=== PATIENT | female | born 1960 | race Caucasian/White ===

== ENCOUNTER 2020-01-08 10:54 | Outpatient (REF) | payer OTHER, SELFPAY ==
--- NOTE | 2020-01-08 11:00 | XR_ITS ---
EXAMINATION: XR HAND, RIGHT XR FINGER, RIGHT CLINICAL INFORMATION: S69.91XA - Unspecified injury of right wrist, hand and finger. Pain hand and thumb. COMPARISON: None TECHNIQUE: The right hand is imaged in 3 views. The right forearm is imaged in 2 views. There are a total of 5 views. FINDINGS: There is no acute or healing fracture, dislocation, destructive process. The ulnar variance is neutral. The carpus shows no joint narrowing or erosive change or chondrocalcinosis. There is some mild spurring base distal phalanx. No joint narrowing or erosive change. The MCP and interphalangeal joints are unremarkable. No erosive changes. XR/XR finger RT min 2V IMPRESSION: No fracture or arthropathy. Small spur base thumb distal phalanx.
--- NOTE | 2020-01-08 11:00 | XR_ITS ---
EXAMINATION: XR HAND, RIGHT XR FINGER, RIGHT CLINICAL INFORMATION: S69.91XA - Unspecified injury of right wrist, hand and finger. Pain hand and thumb. COMPARISON: None TECHNIQUE: The right hand is imaged in 3 views. The right forearm is imaged in 2 views. There are a total of 5 views. FINDINGS: There is no acute or healing fracture, dislocation, destructive process. The ulnar variance is neutral. The carpus shows no joint narrowing or erosive change or chondrocalcinosis. There is some mild spurring base distal phalanx. No joint narrowing or erosive change. The MCP and interphalangeal joints are unremarkable. No erosive changes. XR/XR hand RT 2V IMPRESSION: No fracture or arthropathy. Small spur base thumb distal phalanx.
== END 2020-01-08 10:55 | disposition home or self-care (01) ==
LOC: HO.HMGCX 10:54
PROVIDERS: PCP Internal Medicine; Visit Provider Nurse Practitioner Family
DX: S69.91XA Unspecified injury of right wrist, hand and finger(s), initial encounter (principal); M79.644 Pain in right finger(s)
CPT/HCPCS: 73120; 73140

== ENCOUNTER 2020-02-02 10:43 | Outpatient (REF) | payer OTHER, SELFPAY | END 2020-02-02 10:44 | disposition home or self-care (01) | LOC: HO.LAB 10:43 | PROVIDERS: Visit Provider Hospitalist | DX: Z20.828 Contact with and (suspected) exposure to other viral communicable diseases (principal); B34.9 Viral infection, unspecified | CPT/HCPCS: U0003 ==

== ENCOUNTER 2020-02-13 12:35 | Outpatient (REF) | payer OTHER, SELFPAY | END 2020-02-13 12:36 | disposition home or self-care (01) | LOC: HO.HMGCLDS 12:35 | PROVIDERS: PCP Internal Medicine; Visit Provider Internal Medicine | DX: E78.5 Hyperlipidemia, unspecified (principal); G43.909 Migraine, unspecified, not intractable, without status migrainosus; I10 Essential (primary) hypertension; R73.9 Hyperglycemia, unspecified; Z20.828 Contact with and (suspected) exposure to other viral communicable diseases | CPT/HCPCS: U0003 ==

== ENCOUNTER 2020-03-29 14:46 | Outpatient (REF) | payer OTHER, SELFPAY | END 2020-03-29 14:47 | disposition home or self-care (01) | LOC: HO.HMGCLDS 14:46 | PROVIDERS: PCP Internal Medicine; Visit Provider Internal Medicine | DX: Z20.822 Contact with and (suspected) exposure to COVID-19 (principal) | CPT/HCPCS: 36415; C9803; U0003 ==

== ENCOUNTER 2020-05-18 | Outpatient (REF) | payer OTHER, SELFPAY | END 2020-05-18 00:01 | disposition home or self-care (01) | LOC: HO.LNP | PROVIDERS: Visit Provider Hospitalist | DX: J01.90 Acute sinusitis, unspecified (principal); Z20.822 Contact with and (suspected) exposure to COVID-19 | CPT/HCPCS: U0003; U0005 ==

== ENCOUNTER 2020-07-30 12:18 | Outpatient (REF) | payer OTHER, SELFPAY ==
--- NOTE | ~2020-07-30 | US_ITS ---
EXAMINATION: US RETROPERITONEAL LIMITED (RENAL ONLY) CLINICAL INFORMATION: Nephrolithiasis. COMPARISON: Abdominal ultrasound 10/26/2017. KUB 12/19/2017 and 12/05/2017. TECHNIQUE: Real-time imaging of the kidneys. FINDINGS: RIGHT KIDNEY: 11.8 x 5.3 x 5.2 cm (SAG x AP x TRV). The kidney is normal in size, contour, and echogenicity. Renal cortical thickness is normal. No calculi or focal parenchymal lesions. No hydronephrosis. LEFT KIDNEY: 11.4 x 5.0 x 5.4 cm (SAG x AP x TRV). The kidney is normal in size, contour, and echogenicity. Renal cortical thickness is normal. No calculi or focal parenchymal lesions. No hydronephrosis. US/US renal BI IMPRESSION: Unremarkable examination.
[2020-07-30 14:06] LABS: MANUAL DIFF FLAG NO
[2020-07-30 14:09] LABS: Glucose Urine UA NEG (NEG); Leukocyte Esterase Urine TRACE (NEG); Nitrite Urine NEG (NEG); Specific Gravity - Urine 1.015 (1.005-1.025); Urine Blood NEG (NEG); Urine Ketones NEG (NEG); Urine Protein NEG (NEG-TRACE)
[2020-07-30 14:15] LABS: Appearance Urine CLEAR; Color Urine YELLOW
[2020-07-30 14:19] LABS: Basophils Percent Auto 0.6 % (0-2); Eosinophils Absolute Auto 0.2 X10*3/uL (0.0-0.4); Eosinophils Percent Auto 3.4 % (0-4); Hematocrit 37.4 % (37-47); Hemoglobin 12.4 g/dl (12.0-16.0); Imm Gran Abs Auto 0.03 X10*3/uL (0.00-0.03); Imm Gran Pct Auto 0.5 % (0.0-0.4); Lymphocytes Absolute Auto 2.2 X10*3/uL (1.2-4.9); Lymphocytes Percent Auto 35.8 % (20-40); Mean Corpuscular HGB Conc 33.2 g/dl (31.0-35.0); Mean Corpuscular Hemoglobin 27.9 pg (27.0-33.0); Mean Corpuscular Volume 84.2 fL (80-98); Mean Platelet Volume 10.3 fL (9.4-12.3); Monocytes Absolute Auto 0.5 X10*3/uL (0.1-1.2); Monocytes Percent Auto 7.7 % (2-11); Neutrophils Absolute Auto 3.3 X10*3/uL (2.0-8.3); Platelet Count 244 X10*3/uL (160-400); Red Blood Count 4.44 X10*6/uL (4.20-5.50); Red Cell Distribution Width 14.6 % (11.0-16.0); White Blood Count 6.3 X10*3/uL (4.8-10.8)
[2020-07-30 14:24] LABS: RBC Urine 0 /HPF (0); Squamous Epithelial Cell Urine 2+ /LPF
[2020-07-30 14:34] LABS: Estimated Average Glucose 103 mg/dL; Hemoglobin A1c % 5.2 %
[2020-07-30 14:35] LABS: Alanine Aminotransferase 40 U/L (0-31); Alkaline Phosphatase 87 U/L (39-117); Anion Gap 12 (12-20); Aspartate Amino Transferase 27 U/L (5-31); Bilirubin Total 0.6 mg/dL (0.0-1.0); Blood Urea Nitrogen 15 mg/dL (9-16); Calcium 9.2 mg/dL (8.4-10.2); Carbon Dioxide 26 mmol/L (22-29); Chloride 109 mmol/L (96-108); Cholesterol 171 mg/dL; Estimated Glomerular Filt Rate > 60; Glucose Fasting 105 mg/dL (60-99); HDL Cholesterol 55 mg/dL; LDL Cholesterol Calculated 95 mg/dl; Potassium 4.3 mmol/L (3.3-5.1); Sodium 143 mmol/L (135-145); Total Protein 6.6 g/dL (6.5-8.0); Triglycerides 105 mg/dL
[2020-07-30 14:59] LABS: TSH reflex Free T4 < 0.01 uIU/mL (0.32-4.0)
[2020-07-30 15:32] LABS: Free T4 (Free Thyroxine) 0.89 ng/dL (0.71-1.85)
== END 2020-07-30 12:19 | disposition home or self-care (01) ==
LOC: HO.HMGCX 12:18
PROVIDERS: PCP Internal Medicine; Visit Provider Urology
DX: N20.0 Calculus of kidney (principal); E78.5 Hyperlipidemia, unspecified; R73.9 Hyperglycemia, unspecified; I10 Essential (primary) hypertension
CPT/HCPCS: 36415; 76775; 80053; 80061; 81001; 83036; 84439; 84443; 85025

== ENCOUNTER → 2020-08-06 08:20 | Outpatient (BNVA) | payer OTHER, SELFPAY | PROVIDERS: Visit Provider Urology | DX: N20.0 Calculus of kidney (principal) | CPT/HCPCS: 99212 ==

== ENCOUNTER 2020-10-08 13:49 | Outpatient (REF) | payer OTHER, SELFPAY ==
--- NOTE | ~2020-10-08 | MM_ITS ---
EXAMINATION: BONE DENSITOMETRY CLINICAL INDICATION: Osteopenia. COMPARISON: None (current study represents initial baseline exam). TECHNIQUE: Using a [employer] DXA System (software version: 13.1) manufactured by [employer] dual-energy x-ray absorptiometry was performed of the lumbar spine and left hip. The images are of good technical quality. Summary results are attached. FINDINGS: AP SPINE L1-L4: BMD 0.901 g/cm2, Z-score -1.9, T-score -2.3, osteopenia. LEFT FEMUR, NECK: BMD 0.771 g/cm2, Z-score -1.2, T-score -1.9, osteopenia. LEFT FEMUR, TOTAL: BMD 0.821 g/cm2, Z-score -1.1, T-score -1.5, osteopenia. IDENTIFIED RISK FACTORS: Early menopause, height loss, hysterectomy, secondary osteoporosis. HISTORY OF FRACTURE: None listed. MEDICATIONS: Vitamin D. MM/XR DEXA axial skeleton IMPRESSION: 1. DIAGNOSIS: Osteopenia based on the lowest T-score value of -2.3 in the lumbar spine applying World Health Organization criteria. 2. 10-YEAR FRACTURE RISK PREDICTION, FRAX: Major osteoporotic fracture (clinical spine, forearm, hip or shoulder) 4.9%. Hip fracture 0.6%. 3. Treatment Recommendations: NOF guidelines recommend consideration for treatment in postmenopausal women and men age 50 and older presenting with the following: -A hip or vertebral (clinical or morphometric) fracture. -T-score less than or equal to -2.5 at the femoral neck or spine after appropriate evaluation to exclude secondary causes. -Low bone mass at the hip or spine and a 10-year fracture probability by FRAX of greater than or equal to 3% for hip fracture or greater than or equal to 20% for major osteoporotic fracture based on the [place] adapted WHO algorithm. 4. Other Recommendations: All treatment decisions require clinical judgment and consideration of individual patient factors, including patient preferences, comorbidities, previous drug use, risk factors not captured in the FRAX model (e.g. frailty, falls, vitamin D deficiency, increased bone turnover, interval significant decline in bone density) and possible under or overestimation of fracture risk by FRAX. Additional medical evaluation for secondary cause of low bone mineral density may be appropriate. FUTURE SCAN RECOMMENDATION: People with diagnosed cases of osteoporosis or at high risk for fracture should have regular bone mineral density tests. For patients eligible for Medicare, routine testing is allowed once every 2 years. The testing frequency can be increased to one year for patients who have rapidly progressing disease, those who are receiving or discontinuing medical therapy to restore bone mass, or have additional risk factors.
== END 2020-10-08 13:50 | disposition home or self-care (01) ==
LOC: HO.MAMMO 13:49
PROVIDERS: Visit Provider Internal Medicine
DX: Z13.820 Encounter for screening for osteoporosis (principal); M85.80 Other specified disorders of bone density and structure, unspecified site; Z78.0 Asymptomatic menopausal state; Z98.890 Other specified postprocedural states; Z90.722 Acquired absence of ovaries, bilateral; Z79.899 Other long term (current) drug therapy
CPT/HCPCS: 77080

== ENCOUNTER 2021-06-22 14:26 | Outpatient (REF) | payer OTHER, SELFPAY ==
[2021-06-22 14:54] LABS: Binax Internal Control QC Valid; Binax Now Covid-19 Ag Negative (Negative)
[2021-06-22 17:43] LABS: Influenza A PCR POSITIVE (Negative); Influenza B PCR NEGATIVE (Negative); Resp Syncy Virus RNA Qual PCR NEGATIVE (Negative); SARS COV2 PCR INHOUSE NEGATIVE (Negative)
== END 2021-06-22 14:27 | disposition home or self-care (01) ==
LOC: HO.HMGCLDS 14:26
PROVIDERS: PCP Internal Medicine; Visit Provider Nurse Practitioner Family
DX: Z20.822 Contact with and (suspected) exposure to COVID-19 (principal); R05.9 Cough, unspecified; R68.83 Chills (without fever); J32.1 Chronic frontal sinusitis
CPT/HCPCS: 0241U

== ENCOUNTER 2021-07-21 08:30 | Outpatient (REF) | payer OTHER, SELFPAY ==
--- NOTE | ~2021-07-21 | US_ITS ---
EXAMINATION: US RETROPERITONEAL LIMITED (RENAL ONLY) CLINICAL INFORMATION: Calculus of kidney. COMPARISON: Renal ultrasound 07/30/2020. TECHNIQUE: Real-time imaging of the kidneys. FINDINGS: RIGHT KIDNEY: 12.0 x 5.2 x 6.8 cm (SAG x AP x TRV). The kidney is normal in size, contour, and echogenicity. Renal cortical thickness is normal. No calculi or focal parenchymal lesions. No hydronephrosis. LEFT KIDNEY: 12.3 x 6.2 x 5.4 cm (SAG x AP x TRV). The kidney is normal in size, contour, and echogenicity. Renal cortical thickness is normal. No focal parenchymal lesions or hydronephrosis. 4 mm nonobstructing left midpole renal stone new from prior. US/US renal BI IMPRESSION: New 4 mm nonobstructing left midpole renal stone.
== END 2021-07-21 08:31 | disposition home or self-care (01) ==
LOC: HO.HMGCX 08:30
PROVIDERS: Visit Provider Urology
DX: N20.0 Calculus of kidney (principal)
CPT/HCPCS: 76775

== ENCOUNTER → 2021-08-04 08:55 | Outpatient (BNVA) | payer OTHER, SELFPAY | PROVIDERS: PCP Internal Medicine; Visit Provider Urology | DX: N20.0 Calculus of kidney (principal) | CPT/HCPCS: 99212 ==

== ENCOUNTER 2021-09-14 12:37 | Outpatient (REF) | payer OTHER, SELFPAY ==
[2021-09-14 14:00] LABS: Hemoglobin 11.2 g/dl (12.0-16.0); Mean Corpuscular HGB Conc 32.9 g/dl (31.0-35.0); Mean Corpuscular Hemoglobin 25.4 pg (27.0-33.0); Mean Corpuscular Volume 77.1 fL (80.0-98.0); Mean Platelet Volume 10.3 fL (9.4-12.3); Platelet Count 247 X10*3/uL (160-400); Red Blood Count 4.41 X10*6/uL (4.20-5.50); Red Cell Distribution Width 13.2 % (11.0-16.0); White Blood Count 8.7 X10*3/uL (4.8-10.8)
[2021-09-14 14:12] LABS: Estimated Average Glucose 103 mg/dL; Hemoglobin A1c % 5.2 %
[2021-09-14 14:24] LABS: Alanine Aminotransferase 19 U/L (0-31); Albumin Level 3.7 g/dL (3.5-5.0); Alkaline Phosphatase 200 U/L (39-117); Anion Gap 11 (12-20); Aspartate Amino Transferase 16 U/L (5-31); Bilirubin Total 0.6 mg/dL (0.0-1.0); Blood Urea Nitrogen 11 mg/dL (9-16); Calcium 9.4 mg/dL (8.4-10.2); Carbon Dioxide 24 mmol/L (22-29); Chloride 110 mmol/L (96-108); Cholesterol 119 mg/dL; Estimated Glomerular Filt Rate > 60; Glucose Fasting 109 mg/dL (60-99); HDL Cholesterol 50 mg/dL; LDL Cholesterol Calculated 56 mg/dl; Potassium 4.3 mmol/L (3.3-5.1); Sodium 141 mmol/L (135-145); Total Protein 6.7 g/dL (6.5-8.0); Triglycerides 66 mg/dL
[2021-09-14 14:35] LABS: TSH reflex Free T4 < 0.01 uIU/mL (0.32-4.0); Vitamin D 25-OH Total 40.1 ng/mL (>30)
[2021-09-14 15:38] LABS: Free T4 (Free Thyroxine) 2.29 ng/dL (0.71-1.85)
[2021-09-16 08:51] LABS: Triiodothyronine T3 Free 12.9 pg/mL (2.3-4.2)
== END 2021-09-14 12:38 | disposition home or self-care (01) ==
LOC: HO.HMGCLDS 12:37
PROVIDERS: PCP Internal Medicine; Visit Provider Internal Medicine
DX: E78.5 Hyperlipidemia, unspecified (principal); R73.9 Hyperglycemia, unspecified; E05.90 Thyrotoxicosis, unspecified without thyrotoxic crisis or storm; I10 Essential (primary) hypertension
CPT/HCPCS: 36415; 80053; 80061; 82306; 83036; 84439; 84443; 84481; 85027

== ENCOUNTER 2021-10-10 07:39 | Outpatient (REF) | payer OTHER, SELFPAY ==
[2021-10-10 09:48] LABS: Appearance Urine CLEAR; Color Urine DK YELLOW; Glucose Urine UA NEG (NEG); Leukocyte Esterase Urine 1+ (NEG); Nitrite Urine POS (NEG); Urine Blood NEG (NEG); Urine Ketones NEG (NEG); Urine Protein NEG (NEG-TRACE)
[2021-10-10 10:02] LABS: Squamous Epithelial Cell Urine 1+ /LPF
[2021-10-10 10:04] LABS: Bacteria Urine TRACE /LPF; RBC Urine 0 /HPF (0)
[2021-10-10 10:23] LABS: Free T4 (Free Thyroxine) 2.16 ng/dL (0.71-1.85); Thyroid Stimulating Hormone < 0.01 uIU/mL (0.32-4.0)
[2021-10-11 21:56] LABS: Triiodothyronine T3 Total 274 ng/dL (76-181)
[2021-10-12 02:03] LABS: Thyroglobulin Antibodies <1 IU/mL (< or = 1); Thyroid Peroxidase Antibodies 227 IU/mL (<9)
[2021-10-14 20:22] LABS: Thyrotropin Receptor Antibody 12.64 IU/L (<=2.00)
[2021-10-16 15:02] LABS: Thyroid Stimulating Immunoglob 244 % baseline (<140)
== END 2021-10-10 07:40 | disposition home or self-care (01) ==
LOC: HO.LAB 07:39
PROVIDERS: Absent Provider Urology; PCP Internal Medicine; Visit Provider Internal Medicine
DX: E05.90 Thyrotoxicosis, unspecified without thyrotoxic crisis or storm (principal); A49.9 Bacterial infection, unspecified; N39.0 Urinary tract infection, site not specified
CPT/HCPCS: 36415; 81001; 83520; 84439; 84443; 84445; 84480; 86376; 86800; 87086; 99202

== ENCOUNTER → 2021-10-19 12:44 | Outpatient (REF) | payer OTHER, SELFPAY ==
--- NOTE | ~2021-10-19 | NM_ITS ---
EXAMINATION: THYROID UPTAKE AND SCAN CLINICAL INFORMATION: Thyrotoxicosis. COMPARISON: No previous thyroid scan is available for comparison. TECHNIQUE: Following the oral administration of 242 microcuries of I-123 sodium iodide, thyroid uptake was performed and expressed as a percentage of the administrated dose. Gamma scintillation camera images of the thyroid in the anterior and right and left anterior oblique views were obtained using a pinhole collimator following the administration of 10 mCi Tc-99m pertechnetate. FINDINGS: The uptake is 12.4% at 4 hours and 54.9% at 24 hours (Normal radioiodine uptake at 24 hours is 10% to 30%). The radioiodine uptake is laterally elevated. The radiopertechnetate thyroid scintigram demonstrates the thyroid gland to be normal in size, shape, and position. There is homogeneous distribution of activity within the the gland with no focal abnormalities noted. The trapping function there is markedly increased diffusely. A single anterior radioiodine image obtained at the time of the 24-hour uptake measurement is similar to the radio pertechnetate image. NM/NM thyroid w uptake IMPRESSION: Although the thyroid gland is not enlarged, in the clinical setting of thyrotoxicosis, these findings are most consistent with Graves' disease. The radioiodine uptake is moderately elevated. No nodules are visualized.
== END ==
LOC: HO.NUCMED 12:44
PROVIDERS: PCP Internal Medicine; Visit Provider Internal Medicine
DX: E05.90 Thyrotoxicosis, unspecified without thyrotoxic crisis or storm (principal)
CPT/HCPCS: 78014; A9512; A9516

== ENCOUNTER 2021-11-14 08:22 | Outpatient (REF) | payer OTHER, SELFPAY ==
--- NOTE | ~2021-11-14 | US_ITS ---
EXAMINATION: US THYROID CLINICAL INFORMATION: Thyrotoxicosis, unspecified without thyrotoxic crisis or storm. COMPARISON: Thyroid uptake and scan 10/19/2021. TECHNIQUE: Linear transducer grayscale and color Doppler examination with attention to the region of the thyroid. FINDINGS: SIZE: Measurements of the thyroid lobes and nodules are given in sagittal, anteroposterior and transverse dimensions, respectively. Right Thyroid Lobe: 4.7 x 2.4 x 1.6 cm, volume 9.4 mL. Parenchyma: The gland echotexture is heterogeneous. Thyroid vascularity is increased. Left Thyroid Lobe: 4.5 x 2.1 x 1.2 cm, volume 5.9 mL. Parenchyma: The gland echotexture is heterogeneous. Thyroid vascularity is increased. Isthmus: 0.5 cm in maximum AP dimension. Estimated total number of nodules greater than or equal to 1 cm: 1. [place] Stapler nodules are described as follows: 1. Location: Right mid. Size: 1.5 x 1.3 x 1.0 cm, volume 1.0 mL. Nodule characteristics: Composition: Cystic(0). ACR TI-RADS total points: 0. ACR TI-RADS category: 1. 2. Location: Right mid medial. Size: 0.6 x 0.2 x 0.5 cm, volume 0.04 mL. Nodule characteristics: Composition: Solid (2). Echogenicity: Hyperechoic (1). Shape: Not taller than wide (0). Margins: Smooth (0). Echogenic Foci: Macrocalcifications (1). ACR TI-RADS total points: 4. ACR TI-RADS category: 4. 3. Location: Left mid. Size: 0.4 x 0.1 x 0.4 cm, volume 0.01 mL. Nodule characteristics: Composition: Solid (2). Echogenicity: Hyperechoic (1). Shape: Not taller than wide (0). Margins: Smooth (0). Echogenic Foci: Macrocalcifications (1). ACR TI-RADS total points: 4. ACR TI-RADS category: 4. 4. Location: Mid Isthmus. Size: 0.6 x 0.4 x 0.5 cm, volume 0.06 mL. Nodule characteristics: Composition: Solid (2). Echogenicity: Isoechoic. (1). Shape: Not taller than wide (0). Margins: Smooth (0). Echogenic Foci: None (0). ACR TI-RADS total points: 3. ACR TI-RADS category: 3. NODES: No lymphadenopathy is seen in the tissue surrounding the thyroid gland. Bilateral thyroid nodules. US/US thyroid IMPRESSION: Heterogeneous hypervascular thyroid gland. The right lobe is upper normal in size. ACR TI-RADS RECOMMENDATION REFERENCE: Ultrasound-guided fine-needle aspiration, followup ultrasound, no further follow up. * TR1 (0 point) and TR 2 (2 points): No FNA or follow up. * TR3 (3 points): FNA if more than or equal to 2.5 cm in maximum dimension, followup ultrasound in 1, 3 and 5 years if 1.5 to 2.4 cm in maximum dimension. * TR4 (4-6 points): FNA if more than or equal to 1.5 cm in maximum dimension, followup ultrasound in 1, 2, 3 and 5 years if 1 to 1.4 cm in maximum dimension. * TR5 (more than or equal to 7 points): FNA if more than or equal to 1 cm in maximum dimension, followup ultrasound every year for 5 years if 0.5 to 0.9 cm in maximum dimension. * TR3, TR4 or TR5 nodules that are below the size threshold for followup receive no follow up.
[2021-11-14 09:34] LABS: Free T4 (Free Thyroxine) 1.65 ng/dL (0.71-1.85)
[2021-11-15 23:27] LABS: Triiodothyronine T3 Total 222 ng/dL (76-181)
== END 2021-11-14 08:23 | disposition home or self-care (01) ==
LOC: HO.US 08:22
PROVIDERS: Absent Provider Internal Medicine; Visit Provider Internal Medicine
DX: E05.90 Thyrotoxicosis, unspecified without thyrotoxic crisis or storm (principal)
CPT/HCPCS: 36415; 76536; 84439; 84480

== ENCOUNTER 2021-12-26 07:17 | Outpatient (REF) | payer OTHER, SELFPAY ==
[2021-12-26 08:40] LABS: MANUAL DIFF FLAG NO
[2021-12-26 09:00] LABS: Basophils Percent Auto 0.4 % (0-2); Eosinophils Absolute Auto 0.2 X10*3/uL (0.0-0.4); Eosinophils Percent Auto 1.6 % (0-4); Hematocrit 38.2 % (37.0-47.0); Hemoglobin 12.6 g/dl (12.0-16.0); Imm Gran Abs Auto 0.05 X10*3/uL (0.00-0.03); Imm Gran Pct Auto 0.5 % (0.0-0.4); Lymphocytes Absolute Auto 2.9 X10*3/uL (1.2-4.9); Lymphocytes Percent Auto 30.8 % (20-40); Mean Corpuscular Hemoglobin 25.6 pg (27.0-33.0); Mean Corpuscular Volume 77.5 fL (80.0-98.0); Mean Platelet Volume 10.1 fL (9.4-12.3); Monocytes Absolute Auto 0.6 X10*3/uL (0.1-1.2); Monocytes Percent Auto 6.8 % (2-11); Neutrophils Absolute Auto 5.7 x10*3/uL (2.0-8.3); Neutrophils Percent Auto 59.9 % (45-73); Platelet Count 248 X10*3/uL (160-400); Red Blood Count 4.93 X10*6/uL (4.20-5.50); Red Cell Distribution Width 14.2 % (11.0-16.0); White Blood Count 9.4 X10*3/uL (4.8-10.8)
[2021-12-26 13:37] LABS: Free T4 (Free Thyroxine) 1.18 ng/dL (0.71-1.85)
[2021-12-27 17:11] LABS: Triiodothyronine T3 Total 130 ng/dL (76-181)
== END 2021-12-26 07:18 | disposition home or self-care (01) ==
LOC: HO.LAB 07:17
PROVIDERS: PCP Internal Medicine; Visit Provider Internal Medicine
DX: E04.2 Nontoxic multinodular goiter (principal); E05.90 Thyrotoxicosis, unspecified without thyrotoxic crisis or storm
CPT/HCPCS: 36415; 84439; 84480; 85025; 99212

== ENCOUNTER 2022-02-01 10:52 | Outpatient (REF) | payer OTHER, SELFPAY ==
--- NOTE | 2022-02-01 11:15 | P.BOP_ITS ---
Brief Operative Note Date of Service: 02/01/22 Pre-op diagnosis: Grave's Disease Procedure: EXAMINATION: US THYROID CLINICAL INFORMATION: Multinodular Thyroid COMPARISON: Prior TECHNIQUE: Linear transducer pelaez-scale and color Doppler examination with attention to the region of the thyroid. FINDINGS: SIZE: Measurements of the thyroid lobes and nodules are given in sagittal, anteroposterior and transverse dimensions respectively. Right Thyroid Lobe: 4.4 x 1.7 x 1.5 cm, volume 5.9 mL. Parenchyma: The gland echotexture is diffusely heterogenous. Thyroid vascularity is increased. Left Thyroid Lobe: 4.1 x 1.6 x 1.7 cm, volume 5.8 mL. Parenchyma: The gland echotexture is diffusely heterogenous. Thyroid vascularity is increased. Isthmus: 0.4 cm in maximum AP dimension. There are no true nodules visualized in the thyroid, only pseudonodules. NODES: No lymphadenopathy is seen in the tissue surrounding the thyroid gland. Surgeon: Nathalie Miramontes, DO Was an Channel Business Manager used for this Procedure?: No Estimated blood loss (mL): 0
== END 2022-02-01 10:53 | disposition home or self-care (01) ==
LOC: HO.US 10:52
PROVIDERS: Visit Provider Internal Medicine
DX: E04.2 Nontoxic multinodular goiter (principal)
CPT/HCPCS: 76536

== ENCOUNTER 2022-02-17 08:32 | Outpatient (REF) | payer OTHER, SELFPAY ==
[2022-02-17 11:30] LABS: MANUAL DIFF FLAG NO
[2022-02-17 11:45] LABS: Basophils Absolute Auto 0.1 X10*3/uL (0.0-0.2); Basophils Percent Auto 0.5 % (0-2); Eosinophils Absolute Auto 0.2 X10*3/uL (0.0-0.4); Hematocrit 42.4 % (37.0-47.0); Hemoglobin 13.7 g/dl (12.0-16.0); Imm Gran Abs Auto 0.03 X10*3/uL (0.00-0.03); Imm Gran Pct Auto 0.3 % (0.0-0.4); Lymphocytes Absolute Auto 3.5 X10*3/uL (1.2-4.9); Lymphocytes Percent Auto 35.7 % (20-40); Mean Corpuscular HGB Conc 32.3 g/dl (31.0-35.0); Mean Corpuscular Hemoglobin 25.8 pg (27.0-33.0); Mean Platelet Volume 10.2 fL (9.4-12.3); Monocytes Absolute Auto 0.5 X10*3/uL (0.1-1.2); Neutrophils Absolute Auto 5.6 x10*3/uL (2.0-8.3); Neutrophils Percent Auto 56.5 % (45-73); Platelet Count 284 X10*3/uL (160-400); Red Cell Distribution Width 14.9 % (11.0-16.0); White Blood Count 9.9 X10*3/uL (4.8-10.8)
[2022-02-17 12:42] LABS: Folate 8.3 ng/mL (> or = 4.0); Vitamin B12 308 pg/mL (200-900)
[2022-02-17 13:05] LABS: Alanine Aminotransferase 21 U/L (0-31); Alkaline Phosphatase 301 U/L (39-117); Anion Gap 13 (12-20); Aspartate Amino Transferase 19 U/L (5-31); Bilirubin Total 0.4 mg/dL (0.0-1.0); Blood Urea Nitrogen 12 mg/dL (9-16); Calcium 9.2 mg/dL (8.4-10.2); Carbon Dioxide 26 mmol/L (22-29); Chloride 108 mmol/L (96-108); Cholesterol 159 mg/dL; Estimated Glomerular Filt Rate > 60; Glucose Fasting 116 mg/dL (60-99); HDL Cholesterol 54 mg/dL; Iron 51 mcg/dL (30-160); LDL Cholesterol Calculated 85 mg/dl; Percent Iron Saturation 18 % (15-50); Potassium 4.5 mmol/L (3.3-5.1); Sodium 142 mmol/L (135-145); Total Iron Binding Capacity 289 mcg/dL (228-428); Total Protein 7.1 g/dL (6.5-8.0); Triglycerides 103 mg/dL; Unsaturated Iron Binding 238 ug/dL
== END 2022-02-17 08:33 | disposition home or self-care (01) ==
LOC: HO.HMGCLDS 08:32
PROVIDERS: PCP Internal Medicine; Visit Provider Internal Medicine
DX: E78.5 Hyperlipidemia, unspecified (principal); R73.9 Hyperglycemia, unspecified; E05.90 Thyrotoxicosis, unspecified without thyrotoxic crisis or storm; I10 Essential (primary) hypertension
CPT/HCPCS: 36415; 80053; 80061; 82607; 82746; 83540; 84443; 85025

== ENCOUNTER → 2022-02-20 07:16 | Outpatient (BNVA) | payer OTHER, SELFPAY | PROVIDERS: PCP Internal Medicine; Visit Provider Internal Medicine | DX: E05.90 Thyrotoxicosis, unspecified without thyrotoxic crisis or storm (principal); E04.2 Nontoxic multinodular goiter | CPT/HCPCS: 99212 ==

== ENCOUNTER 2022-04-15 11:23 | Outpatient (REF) | payer OTHER, SELFPAY ==
[2022-04-15 12:09] LABS: Influenza A PCR NEGATIVE (Negative); Influenza B PCR NEGATIVE (Negative); Resp Syncy Virus RNA Qual PCR NEGATIVE (Negative); SARS COV2 PCR INHOUSE NEGATIVE (Negative)
== END 2022-04-15 11:24 | disposition home or self-care (01) ==
LOC: HO.LNP 11:23
PROVIDERS: Visit Provider Physician Assistant Medical
DX: Z20.822 Contact with and (suspected) exposure to COVID-19 (principal); R05.9 Cough, unspecified
CPT/HCPCS: 0241U

== ENCOUNTER 2022-04-22 15:14 | Emergency (ER) | payer OTHER, SELFPAY ==
--- NOTE | ~2022-04-22 | XR_ITS ---
EXAMINATION: XR CHEST CLINICAL INFORMATION: Reason for Exam shortness of breath COMPARISON: Chest radiograph 09/23/2021 TECHNIQUE: 2 views of the chest FINDINGS: Clear lungs. No pneumothorax or pleural effusion. Normal cardiomediastinal silhouette. XR/XR chest 2V IMPRESSION: * Clear lungs.
--- NOTE | 2022-04-22 15:23 | ED_ITS ---
HPI - Dizziness General Chief Complaint: General Medical <Meli Moncada NP - Last Filed: 04/22/22 15:27> Stated Complaint: dizziness,vomiting <Meli Moncada NP - Last Filed: 04/22/22 15:27> Time Seen by Provider: 04/22/22 15:58 <Meli Moncada NP - Last Filed: 04/22/22 15:27> Source: patient, family, RN notes reviewed and old records reviewed <Flaco Bowman - Last Filed: 04/22/22 18:55> Mode of arrival: ambulatory <Flaco Bowman - Last Filed: 04/22/22 18:55> Limitations: language barrier (Patient is primarily Latvian-speaking. is interpreting. I offered in-house fixture designer services and patient declined) <Flaco Bowman - Last Filed: 04/22/22 18:55> History of Present Illness HPI Narrative: 61-year-old female with past medical history significant for IBS, hypertension, hyperlipidemia, diabetes presents for evaluation of weakness. Patient reports that she went to bed feeling well last night. She states around 7:00 a.m. when she woke up today she felt ?dizzy. ? She is unable to categorize the dizziness. She states she feels ?different. ? She denies any pain including headache, chest pain, abdominal pain. She does complain of chills, generalized fatigue, cough, nausea and vomiting Denies any sick contacts <Flaco Bowman - Last Filed: 04/22/22 18:55> Related Data Home Medications: Home Medications Medication Instructions Recorded Confirmed lorazepam 1 mg tablet mg PO 01/08/20 02/28/22 zolpidem 5 mg tablet 5 mg PO BEDTIME PRN insomnia 01/08/20 02/28/22 Previous Rx's Medication Instructions Recorded pyridoxine (vitamin B6) 100 mg 100 mg PO DAILY 90 days #90 tabs 08/22/21 tablet cholecalciferol (vitamin D3) 25 25 mcg PO DAILY #90 caps 09/09/21 mcg (1,000 unit) capsule dicyclomine 20 mg tablet 20 mg PO TID #90 tabs 10/06/21 methimazole 5 mg tablet See Rx Instructions PO DAILY 30 12/06/21 days #90 tabs rosuvastatin 5 mg tablet 5 mg PO DAILY #90 tabs 01/27/22 olmesartan 20 mg tablet 20 mg PO DAILY #90 tabs 02/09/22 benzonatate 100 mg capsule 100 mg PO BID-TID PRN cough #30 04/15/22 caps fluticasone propionate 50 1 spray intranasal DAILY #16 grams 04/15/22 mcg/actuation nasal spray,suspension meclizine 25 mg tablet 25 mg PO TID PRN dizziness #20 tabs 04/22/22 ondansetron 4 mg disintegrating 4 mg PO Q8H PRN nausea and 04/22/22 tablet vomiting #20 tabs <Meli Moncada NP - Last Filed: 04/22/22 15:27> Allergies/Adverse Reactions: Allergies Allergy/AdvReac Type Severity Reaction Status Date / Time No Known Allergies Allergy Verified 04/22/22 14:03 [No Known Allergies*] <Meli Moncada NP - Last Filed: 04/22/22 15:27> Review of Systems Constitutional: Constitutional: Reports as per HPI, Reports chills and Denies fever(s) <Flaco Bowman - Last Filed: 04/22/22 18:55> ENT: Denies sore throat <Flaco Bowman - Last Filed: 04/22/22 18:55> Cardiovascular: Cardiovascular: Denies chest pain and Denies dyspnea <Flaco Bowman - Last Filed: 04/22/22 18:55> Respiratory: Respiratory: Reports cough and Denies dyspnea <Flaco Bowman - Last Filed: 04/22/22 18:55> Gastrointestinal: Gastrointestinal: Denies abdominal pain, Denies constipation, Reports nausea and Reports vomiting <Flaco Bowman - Last Filed: 04/22/22 18:55> Genitourinary: Genitourinary: Denies dysuria <Flaco Bowman - Last Filed: 04/22/22 18:55> [facility], LAT[facility] Past Medical History Attestation statement: The following information was validated with the patient. <Flaco Bowman - Last Filed: 04/22/22 18:55> Source: old records reviewed, obtained from family and nursing notes reviewed <Flaco Bowman - Last Filed: 04/22/22 18:55> Medical History: Medical History Annual physical exam Anxiety Atypical hyperplasia of breast Chronic GERD Depression HTN (hypertension) Hyperglycemia Hyperlipidemia Migraine headache Multinodular thyroid Nephrolithiasis Normal Pap smear Osteopenia <Meli Moncada NP - Last Filed: 04/22/22 15:27> Surgical History: Surgical History H/O colonoscopy History of esophagogastroduodenoscopy (EGD) History of hysterectomy Hx of cholecystectomy Status post breast reduction <Meli Moncada NP - Last Filed: 04/22/22 15:27> Family History Family History: Family History Father Cancer Mother No problems noted. <Meli Moncada NP - Last Filed: 04/22/22 15:27> Social History Social History: Social History Housing: Apartment Patient Tobacco Use Status: Never used Tobacco e-Cigarette/Vaping Use: Never Used Second Hand Smoke Exposure: No Advance Directives: No Advance Directives Information Provided: Yes Current occupational status: unemployed Current occupational exposures/hazards: No Cognitive needs: No Hearing needs: No Vision needs: Yes <Meli Moncada NP - Last Filed: 04/22/22 15:27> Physical Exam Vital Signs: Vital Signs: Last Vital Signs Temp 98.2 F 04/22/22 15:25 Pulse 72 04/22/22 16:59 Resp 16 04/22/22 16:59 BP 142/69 H 04/22/22 15:25 Pulse Ox 97 04/22/22 16:59 O2 Del Method 04/22/22 16:59 BMI result Body Mass Index 32.1 <Meli Moncada NP - Last Filed: 04/22/22 15:27> Vital Signs: Last Vital Signs Temp 98.2 F 04/22/22 15:25 Pulse 72 04/22/22 16:59 Resp 16 04/22/22 16:59 BP 142/69 H 04/22/22 15:25 Pulse Ox 97 04/22/22 16:59 O2 Del Method 04/22/22 16:59 BMI result Body Mass Index 32.1 < Last Filed: 04/22/22 18:55> Const: General: cooperative, healthy appearing, comfortable and no acute distress < Last Filed: 04/22/22 18:55> Orientation/consciousness: patient oriented x3 < Last Filed: 04/22/22 18:55> HEENT: Head: Yes normocephalic and Yes atraumatic < - Last Filed: 04/22/22 18:55> Ears: TM's normal bilaterally and EAC's normal < Last Filed: 04/22/22 18:55> Throat: Yes posterior oropharynx normal, Yes tonsils normal and No other (No retropharyngeal edema, no erythema tonsillar exudates) < Last Filed: 04/22/22 18:55> Eyes: Eyelids: Yes eyelids normal < Last Filed: 04/22/22 18:55> Conjunctivae: conjunctivae normal < Last Filed: 04/22/22 18 :55> Sclerae: sclerae normal < Last Filed: 04/22/22 18:55> Corneas: corneas normal < Last Filed: 04/22/22 18:55> Pupils: Equal, round and reactive pupils present, Pupils normal by confrontation and Pupil accommodation reflex normal < Last Filed: 04/22/22 18:55> EOM: EOMs intact bilaterally < Last Filed: 04/22/22 18:55> Resp: Effort & Inspection: able to speak in complete sentences and abnormal respiratory pattern < Last Filed: 04/22/22 18:55> Auscultation: clear to auscultation bilaterally < Last Filed: 04/22/22 18:55> Cardio: Rate: regular rate <Flaco Bowman - Last Filed: 04/22/22 18:55> Rhythm: regular rhythm <Flaco Bowman - Last Filed: 04/22/22 18:55> GI: Inspection: No Abdominal wall edema and No distended <Flacobeckie Bowman - Last Filed: 04/22/22 18:55> Palpation (GI): Soft to palpation, nontender and no guarding <Flacobeckie Bowman - Last Filed: 04/22/22 18:55> Auscultation: normoactive bowel sounds <Flacobeckie Bowman - Last Filed: 04/22/22 18:55> Skin: General skin exam: no rashes or lesions noted <Flaco Bowman - Last Filed: 04/22/22 18:55> Neuro: General: patient oriented x3 <Flaco Bowman - Last Filed: 04/22/22 18:55> Cranial nerves: Yes CN's II-XII intact bilaterally and Yes Equal, round and reactive pupils present <Flaco Bowman - Last Filed: 04/22/22 18:55> Motor exam (neuro): Pronator motor function not present <Flaco Bowman - Last Filed: 04/22/22 18:55> Coordination: [id number] test normal <Flaco Bowman - Last Filed: 04/22/22 18:55> Romberg Test: Negative <Flacobeckie Bowman - Last Filed: 04/22/22 18:55> Psych: Other: Stable mood and affect <Flaco Bowman - Last Filed: 04/22/22 18:55> Course Course Course Narrative: This is rapid medical exam. Deferred additional HPI, ROS, PE to primary provider. 61 yo female with past medical history of HTN, HLD, anxiety, depression, migraines here with complaints of dizziness, vomiting, weakness, cough, fatigue, chills x 1 day. Seen at walk in clinic and referred in to the ER for IV fluids per . Will check labs, EKG, viral testing, give 4mg SL zofran. VSS <Meli Moncada NP - Last Filed: 04/22/22 15:27> Reevaluation(s) Reevaluation #1: Patient reports feeling much better after IV fluids. Her workup was significant for leukocytosis of 13.3k which is likely reactive to her vomiting. Abdomen exam is reassuring. The patient is neurologically stable. She will be discharged <Flaco Bowman - Last Filed: 04/22/22 18:55> Time: 18:15 <Flaco Bowman - Last Filed: 04/22/22 18:55> Medications Administered Discontinued Medications Generic Name Dose Route Start Last Admin Trade Name Freq PRN Reason Stop Dose Admin Sodium Chloride 1,000 mls @ 999 mls/hr 04/22/22 16:08 04/22/22 16:40 Ns IV 04/22/22 17:08 999 mls/hr .Q1H1M STA Administration Meclizine HCl 25 mg 04/22/22 16:08 04/22/22 16:40 Meclizine Hcl 25 Mg Tablet PO 04/22/22 16:09 25 mg ONCE ONE Administration Ondansetron HCl 4 mg 04/22/22 15:26 04/22/22 16:40 Ondansetron Odt 4 Mg Tab.Rapdis TRANSLINGU 04/22/22 15:27 4 mg ONCE ONE Administration <Meli Moncada NP - Last Filed: 04/22/22 15:27> Medications Administered Discontinued Medications Generic Name Dose Route Start Last Admin Trade Name Freq PRN Reason Stop Dose Admin Sodium Chloride 1,000 mls @ 999 mls/hr 04/22/22 16:08 04/22/22 16:40 Ns IV 04/22/22 17:08 999 mls/hr .Q1H1M STA Administration Meclizine HCl 25 mg 04/22/22 16:08 04/22/22 16:40 Meclizine Hcl 25 Mg Tablet PO 04/22/22 16:09 25 mg ONCE ONE Administration Ondansetron HCl 4 mg 04/22/22 15:26 04/22/22 16:40 Ondansetron Odt 4 Mg Tab.Rapdis TRANSLINGU 04/22/22 15:27 4 mg ONCE ONE Administration <Flaco Bowman - Last Filed: 04/22/22 18:55> Medical Decision Making Medical Decision Making MDM Narrative: 61-year-old female with comorbidities as mentioned in HPI presenting for evaluation of vague complaints. She complains of dizziness but is unable to qualify or quantify this. She states this feels out of her normal baseline. She complains of viral symptoms including chills, cough. Denies any headache, c hest pain, shortness of breath, abdominal pain. She has had nausea and vomiting. Given the recent onset of her symptoms multiple ?I feel viral etiology is most likely at this time. The patient's neurologic exam is reassuring, her vital signs within normal limits, EKG interpreted by myself shows sinus bradycardia with a rate of 56 beats per minute. No ischemic changes. We will check basic labs, COVID panel. A chest x-ray. In the meantime the patient will medicate with IV fluids, meclizine. She previously received ODT Zofran in the triage area. Most likely diagnosis at this time is viral syndrome with or without associated vertigo <Flaco Bowman - Last Filed: 04/22/22 18:55> Differential Diagnosis Viral syndrome COVID-19 Influenza Pneumonia Vertigo Dehydration Orthostasis <Flaco Bowman - Last Filed: 04/22/22 18:55> Lab Data Result Diagrams: 04/22/22 16:36 04/22/22 16:36 <Meli Moncada NP - Last Filed: 04/22/22 15:27> Labs: Lab Results 04/22/22 04/22/22 04/22/22 Range/Units 16:36 16:36 16:36 WBC 13.1 H (4.8-10.8) X10*3/uL RBC 5.19 (4.20-5.50) X10*6/uL Hgb 13.9 (12.0-16.0) g/dl Hct 41.3 (37.0-47.0) % MCV 79.6 L (80.0-98.0) fL MCH 26.8 L (27.0-33.0) pg MCHC 33.7 (31.0-35.0) g/dl RDW 13.6 (11.0-16.0) % Plt Count 278 (160-400) X10*3/uL MPV 9.8 (9.4-12.3) fL Immature Gran % (Auto) 0.4 (0.0-0.4) % Neut % (Auto) 84.6 H (45-73) % Lymph % (Auto) 11.5 L (20-40) % [facility] % (Auto) 3.1 (2-11) % Eos % (Auto) 0.1 (0-4) % Baso % (Auto) 0.3 (0-2) % Lymph # (Auto) 1.5 (1.2-4.9) X10*3/uL [facility] # (Auto) 0.4 (0.1-1.2) X10*3/uL Eos # (Auto) 0.0 (0.0-0.4) X10*3/uL Baso # (Auto) 0.0 (0.0-0.2) X10*3/uL Abs Immat Gran (auto) 0.05 H (0.00-0.03) X10*3/uL Absolute Neuts (auto) 11.1 H (2.0-8.3) x10*3/uL Absolute Nucleated RBC 0.000 (0.0-0.012) X10*3/uL Nucleated RBC % (auto) 0.0 (0.0-0.2) /100WBC Sodium Cancelled Potassium Cancelled Chloride Cancelled Carbon Dioxide Cancelled Anion Gap Cancelled BUN Cancelled Creatinine Cancelled Estim Creat Clear Calc Cancelled Estimated GFR Cancelled Random Glucose Cancelled Calcium Cancelled Magnesium Cancelled Total Bilirubin Cancelled Direct Bilirubin Cancelled AST Cancelled ALT Cancelled Alkaline Phosphatase Cancelled Total Protein Cancelled Albumin Cancelled Lipase (8-78) U/L Influenza Type A (PCR) NEGATIVE (Negative) Influenza Type B (PCR) NEGATIVE (Negative) RSV RNA Qual (PCR) NEGATIVE (Negative) SARS-CoV-2 RNA (RT-PCR) NEGATIVE (Negative) 04/22/22 Range/Units 16:36 WBC (4.8-10.8) X10*3/uL RBC (4.20-5.50) X10*6/uL Hgb (12.0-16.0) g/dl Hct (37.0-47.0) % MCV (80.0-98.0) fL MCH (27.0-33.0) pg MCHC (31.0-35.0) g/dl RDW (11.0-16.0) % Plt Count (160-400) X10*3/uL MPV (9.4-12.3) fL Immature Gran % (Auto) (0.0-0.4) % Neut % (Auto) (45-73) % Lymph % (Auto) (20-40) % [facility] % (Auto) (2-11) % Eos % (Auto) (0-4) % Baso % (Auto) (0-2) % Lymph # (Auto) (1.2-4.9) X10*3/uL [facility] # (Auto) (0.1-1.2) X10*3/uL Eos # (Auto) (0.0-0.4) X10*3/uL Baso # (Auto) (0.0-0.2) X10*3/uL Abs Immat Gran (auto) (0.00-0.03) X10*3/uL Absolute Neuts (auto) (2.0-8.3) x10*3/uL Absolute Nucleated RBC (0.0-0.012) X10*3/uL Nucleated RBC % (auto) (0.0-0.2) /100WBC Sodium 143 Potassium 4.5 Chloride 110 H Carbon Dioxide 22 Anion Gap 16 BUN 14 Creatinine 0.73 Estim Creat Clear Calc 94.7 Estimated GFR > 60 Random Glucose 129 H Calcium 9.4 Magnesium 1.9 Total Bilirubin 0.8 Direct Bilirubin 0.2 AST 21 ALT 22 Alkaline Phosphatase 256 H Total Protein 7.3 Albumin 4.1 Lipase 10 (8-78) U/L Influenza Type A (PCR) (Negative) Influenza Type B (PCR) (Negative) RSV RNA Qual (PCR) (Negative) SARS-CoV-2 RNA (RT-PCR) (Negative) <Meli Moncada, CYCLING INSTRUCTOR - Last Filed: 04/22/22 15:27> Lab Results 04/22/22 04/22/22 04/22/22 Range/Units 16:36 16:36 16:36 WBC 13.1 H (4.8-10.8) X10*3/uL RBC 5.19 (4.20-5.50) X10*6/uL Hgb 13.9 (12.0-16.0) g/dl Hct 41.3 (37.0-47.0) % MCV 79.6 L (80.0-98.0) fL MCH 26.8 L (27.0-33.0) pg MCHC 33.7 (31.0-35.0) g/dl RDW 13.6 (11.0-16.0) % Plt Count 278 (160-400) X10*3/uL MPV 9.8 (9.4-12.3) fL Immature Gran % (Auto) 0.4 (0.0-0.4) % Neut % (Auto) 84.6 H (45-73) % Lymph % (Auto) 11.5 L (20-40) % [facility] % (Auto) 3.1 (2-11) % Eos % (Auto) 0.1 (0-4) % Baso % (Auto) 0.3 (0-2) % Lymph # (Auto) 1.5 (1.2-4.9) X10*3/uL [facility] # (Auto) 0.4 (0.1-1.2) X10*3/uL Eos # (Auto) 0.0 (0.0-0.4) X10*3/uL Baso # (Auto) 0.0 (0.0-0.2) X10*3/uL Abs Immat Gran (auto) 0.05 H (0.00-0.03) X10*3/uL Absolute Neuts (auto) 11.1 H (2.0-8.3) x10*3/uL Absolute Nucleated RBC 0.000 (0.0-0.012) X10*3/uL Nucleated RBC % (auto) 0.0 (0.0-0.2) /100WBC Sodium Cancelled Potassium Cancelled Chloride Cancelled Carbon Dioxide Cancelled Anion Gap Cancelled BUN Cancelled Creatinine Cancelled Estim Creat Clear Calc Cancelled Estimated GFR Cancelled Random Glucose Cancelled Calcium Cancelled Magnesium Cancelled Total Bilirubin Cancelled Direct Bilirubin Cancelled AST Cancelled ALT Cancelled Alkaline Phosphatase Cancelled Total Protein Cancelled Albumin Cancelled Lipase (8-78) U/L Influenza Type A (PCR) NEGATIVE (Negative) Influenza Type B (PCR) NEGATIVE (Negative) RSV RNA Qual (PCR) NEGATIVE (Negative) SARS-CoV-2 RNA (RT-PCR) NEGATIVE (Negative) 04/22/22 Range/Units 16:36 WBC (4.8-10.8) X10*3/uL RBC (4.20-5.50) X10*6/uL Hgb (12.0-16.0) g/dl Hct (37.0-47.0) % MCV (80.0-98.0) fL MCH (27.0-33.0) pg MCHC (31.0-35.0) g/dl RDW (11.0-16.0) % Plt Count (160-400) X10*3/uL MPV (9.4-12.3) fL Immature Gran % (Auto) (0.0-0.4) % Neut % (Auto) (45-73) % Lymph % (Auto) (20-40) % [facility] % (Auto) (2-11) % Eos % (Auto) (0-4) % Baso % (Auto) (0-2) % Lymph # (Auto) (1.2-4.9) X10*3/uL [facility] # (Auto) (0.1-1.2) X10*3/uL Eos # (Auto) (0.0-0.4) X10*3/uL Baso # (Auto) (0.0-0.2) X10*3/uL Abs Immat Gran (auto) (0.00-0.03) X10*3/uL Absolute Neuts (auto) (2.0-8.3) x10*3/uL Absolute Nucleated RBC (0.0-0.012) X10*3/uL Nucleated RBC % (auto) (0.0-0.2) /100WBC Sodium 143 Potassium 4.5 Chloride 110 H Carbon Dioxide 22 Anion Gap 16 BUN 14 Creatinine 0.73 Estim Creat Clear Calc 94.7 Estimated GFR > 60 Random Glucose 129 H Calcium 9.4 Magnesium 1.9 Total Bilirubin 0.8 Direct Bilirubin 0.2 AST 21 ALT 22 Alkaline Phosphatase 256 H Total Protein 7.3 Albumin 4.1 Lipase 10 (8-78) U/L Influenza Type A (PCR) (Negative) Influenza Type B (PCR) (Negative) RSV RNA Qual (PCR) (Negative) SARS-CoV-2 RNA (RT-PCR) (Negative) <Flaco Bowman - Last Filed: 04/22/22 18:55> Discharge Plan Discharge Clinical Impression: Vomiting, Dizziness <Meli Moncada NP - Last Filed: 04/22/22 15:27> Patient Disposition: Home, Self-Care <Meli Moncada NP - Last Filed: 04/22/22 15:27> Instructions: Acute Nausea and Vomiting (ED) <Meli Moncada NP - Last Filed: 04/22/22 15:27> Additional Instructions: Take Zofran as needed for nausea and vomiting. Take meclizine as needed for any further dizziness. Drink lots of fluids, small sips at a time. Return for new or worsening symptoms <Meli Moncada NP - Last Filed: 04/22/22 15:27> Prescriptions: New ondansetron 4 mg tablet,disintegrating 4 mg PO Q8H PRN (Reason: nausea and vomiting) Qty: 20 0RF meclizine 25 mg tablet 25 mg PO TID PRN (Reason: dizziness) Qty: 20 0RF No Action pyridoxine (vitamin B6) 100 mg tablet 100 mg PO DAILY 90 Days Qty: 90 3RF cholecalciferol (vitamin D3) 25 mcg (1,000 unit) capsule 25 mcg PO DAILY Qty: 90 3RF dicyclomine 20 mg tablet 20 mg PO TID Qty: 90 1RF rosuvastatin 5 mg tablet 5 mg PO DAILY Qty: 90 3RF olmesartan 20 mg tablet 20 mg PO DAILY Qty: 90 3RF zolpidem 5 mg tablet 5 mg PO BEDTIME PRN (Reason: insomnia) lorazepam 1 mg tablet PO benzonatate 100 mg capsule 100 mg PO BID-TID PRN (Reason: cough) Qty: 30 0RF fluticasone propionate 50 mcg/actuation spray,suspension 1 spray intranasal DAILY Qty: 16 0RF Rx Instructions: administer into each nostril methimazole 5 mg tablet See Rx Instructions PO DAILY 30 Days Qty: 90 6RF Rx Instructions: 10 mg q am and 5 mg q pm orally daily; <Meli Moncada NP - Last Filed: 04/22/22 15:27>
[2022-04-22 15:25] VITALS: BP 142/69; PULSE 72; RESP 16; TEMP 36.8; O2SAT 99; BMI 32.1
--- NOTE | 2022-04-22 15:25 | ECG_ITS ---
Test Reason : ABD PAIN Blood Pressure : / mmHG Vent. Rate : 056 BPM Atrial Rate : 056 BPM P-R Int : 132 ms QRS Dur : 078 ms QT Int : 398 ms P-R-T Axes : 048 -10 048 degrees QTc Int : 384 ms Sinus bradycardia Otherwise normal ECG No previous ECGs available Referred By: Meli Moncada Electronically Signed By:Lonny Valencia
[2022-04-22 16:39] LABS: MANUAL DIFF FLAG NO
[2022-04-22] MEDS: Ondansetron ODT 4 MG TAB.RAPDIS TRANSLINGU (16:40)
[2022-04-22] MEDS: 0.9 % Sodium Chloride 1,000 ML 999 ML IV (16:40)
[2022-04-22] MEDS: Meclizine HCl 25 MG TABLET PO (16:40)
[2022-04-22 16:41] LABS: Basophils Percent Auto 0.3 % (0-2); Eosinophils Percent Auto 0.1 % (0-4); Hematocrit 41.3 % (37.0-47.0); Hemoglobin 13.9 g/dl (12.0-16.0); Imm Gran Abs Auto 0.05 X10*3/uL (0.00-0.03); Imm Gran Pct Auto 0.4 % (0.0-0.4); Lymphocytes Absolute Auto 1.5 X10*3/uL (1.2-4.9); Lymphocytes Percent Auto 11.5 % (20-40); Mean Corpuscular HGB Conc 33.7 g/dl (31.0-35.0); Mean Corpuscular Hemoglobin 26.8 pg (27.0-33.0); Mean Corpuscular Volume 79.6 fL (80.0-98.0); Mean Platelet Volume 9.8 fL (9.4-12.3); Monocytes Absolute Auto 0.4 X10*3/uL (0.1-1.2); Monocytes Percent Auto 3.1 % (2-11); Neutrophils Absolute Auto 11.1 x10*3/uL (2.0-8.3); Neutrophils Percent Auto 84.6 % (45-73); Platelet Count 278 X10*3/uL (160-400); Red Blood Count 5.19 X10*6/uL (4.20-5.50); Red Cell Distribution Width 13.6 % (11.0-16.0); White Blood Count 13.1 X10*3/uL (4.8-10.8)
[2022-04-22 16:59] VITALS: PULSE 72; RESP 16; O2SAT 97
--- NOTE | 2022-04-22 17:01 | PC.NURSE ---
Alert and oriented, resp even and unlabored. NSR on the monitor. IV established, labs drawn and sent. Fluids infusing.
[2022-04-22 17:03] LABS: Alanine Aminotransferase 22 U/L (0-31); Albumin Level 4.1 g/dL (3.5-5.0); Alkaline Phosphatase 256 U/L (39-117); Anion Gap 16 (12-20); Aspartate Amino Transferase 21 U/L (5-31); Bilirubin Direct 0.2 mg/dL (0.0-0.5); Bilirubin Total 0.8 mg/dL (0.0-1.0); Blood Urea Nitrogen 14 mg/dL (9-16); Calcium 9.4 mg/dL (8.4-10.2); Carbon Dioxide 22 mmol/L (22-29); Chloride 110 mmol/L (96-108); Creatinine Clr Calc Pharmacy 94.7; Estimated Glomerular Filt Rate > 60; Glucose Random 129 mg/dL (60-115); Lipase 10 U/L (8-78); Magnesium 1.9 mg/dL (1.6-2.6); Potassium 4.5 mmol/L (3.3-5.1); Sodium 143 mmol/L (135-145); Total Protein 7.3 g/dL (6.5-8.0)
[2022-04-22 17:25] LABS: Influenza A PCR NEGATIVE (Negative); Influenza B PCR NEGATIVE (Negative); Resp Syncy Virus RNA Qual PCR NEGATIVE (Negative); SARS COV2 PCR INHOUSE NEGATIVE (Negative)
--- NOTE | 2022-04-22 19:06 | PC.NURSE ---
this nurse assumed care pt ready for discharge pt expresses desire to go home, have made pt aware that discharge instructions to follow
[2022-04-22 19:18] VITALS: BP 129/72; PULSE 75; RESP 17; O2SAT 98
--- NOTE | 2022-04-22 19:25 | PC.NURSE ---
Discharge instructions given/explained, no apparent distress, IV cath tip intact upon removal, ambulates safely/independently
== END 2022-04-22 19:26 | disposition home or self-care (01) ==
PROVIDERS: Nurse Practitioner Family; Physician Assistant; Emergency Provider Emergency Medicine; PCP Internal Medicine
DX: R42 Dizziness and giddiness (principal); R11.10 Vomiting, unspecified; Z20.822 Contact with and (suspected) exposure to COVID-19; Z20.828 Contact with and (suspected) exposure to other viral communicable diseases; I10 Essential (primary) hypertension; E11.9 Type 2 diabetes mellitus without complications; E78.5 Hyperlipidemia, unspecified; Z79.899 Other long term (current) drug therapy; Z79.02 Long term (current) use of antithrombotics/antiplatelets
CPT/HCPCS: 0241U; 36415; 71046; 80048; 80076; 83690; 83735; 85025; 93005; 96374; 99284; 99285

== ENCOUNTER 2022-07-28 11:49 | Outpatient (REF) | payer OTHER, SELFPAY ==
[2022-07-28 14:47] LABS: Influenza A PCR NEGATIVE (Negative); Influenza B PCR NEGATIVE (Negative); Resp Syncy Virus RNA Qual PCR NEGATIVE (Negative); SARS COV2 PCR INHOUSE NEGATIVE (Negative)
== END 2022-07-28 11:50 | disposition home or self-care (01) ==
LOC: HO.LAB 11:49
PROVIDERS: Visit Provider Nurse Practitioner Family
DX: R09.89 Other specified symptoms and signs involving the circulatory and respiratory systems (principal); Z20.822 Contact with and (suspected) exposure to COVID-19
CPT/HCPCS: 0241U

== ENCOUNTER 2022-08-08 14:21 | Outpatient (REF) | payer OTHER, SELFPAY ==
--- NOTE | ~2022-08-08 | US_ITS ---
EXAMINATION: US RETROPERITONEAL LIMITED (RENAL ONLY) CLINICAL INFORMATION: Calculus of kidney. COMPARISON: None available. TECHNIQUE: Real-time imaging of the kidneys. FINDINGS: RIGHT KIDNEY: 11.9 x 5.3 x 5.7 cm (SAG x AP x TRV). The kidney is normal in size, contour, and echogenicity. Renal cortical thickness is normal. No calculi or focal parenchymal lesions. No hydronephrosis. LEFT KIDNEY: 11.3 x 6.2 x 5.0 cm (SAG x AP x TRV). The kidney is normal in size, contour, and echogenicity. Renal cortical thickness is normal. No calculi or focal parenchymal lesions. No hydronephrosis. US/US renal BI IMPRESSION: Normal renal ultrasound.
== END 2022-08-08 14:22 | disposition home or self-care (01) ==
LOC: HO.US 14:21
PROVIDERS: PCP Internal Medicine; Visit Provider Urology
DX: N20.0 Calculus of kidney (principal)
CPT/HCPCS: 76775

== ENCOUNTER → 2022-08-10 09:24 | Outpatient (BNVA) | payer OTHER, SELFPAY | PROVIDERS: PCP Internal Medicine; Visit Provider Urology | DX: N39.46 Mixed incontinence (principal) | CPT/HCPCS: 51798; 99212 ==

== ENCOUNTER → 2022-08-11 11:35 | Outpatient (BNVA) | payer OTHER, SELFPAY | PROVIDERS: PCP Internal Medicine; Visit Provider Internal Medicine | DX: R74.8 Abnormal levels of other serum enzymes (principal); Z80.0 Family history of malignant neoplasm of digestive organs | CPT/HCPCS: 99202 ==

== ENCOUNTER 2022-08-24 08:26 | Outpatient (REF) | payer OTHER, SELFPAY ==
--- NOTE | ~2022-08-24 | US_ITS ---
EXAMINATION: US ABDOMEN COMPLETE CLINICAL INFORMATION: Elevated alkaline phosphatase. COMPARISON: Renal ultrasound 08/08/2022 and 07/21/2021. X-ray KUB 12/19/2017 and 12/05/2017. TECHNIQUE: Real-time imaging of the abdominal viscera. FINDINGS: PANCREAS: Pancreas is partially obscured by bowel gas but body and head are unremarkable. ABDOMINAL AORTA: Unremarkable where seen INFERIOR VENA CAVA: Visualized portions are normal. LIVER: Liver is echogenic heterogeneous and enlarged the right lobe of the liver measured 20 cm. The liver contour is normal. There is no intrahepatic biliary duct dilatation seen. There is simple 1.6 x 1.2 x 1.5 cm cyst in the right lobe of the liver. GALLBLADDER: Surgically absent. COMMON BILE DUCT: Normal in caliber measuring 0.9 cm in diameter. RIGHT KIDNEY: Normal. No hydronephrosis. No renal calculi or focal parenchymal lesions. The kidney measures 12.0 cm in maximum dimension. LEFT KIDNEY: Normal. No hydronephrosis. No renal calculi or focal parenchymal lesions. The kidney measures 12.0 cm in maximum dimension. SPLEEN: Normal. The spleen measures 12.6 cm in maximum dimension. FREE FLUID: None. US/US abdomen complete IMPRESSION: Hepatomegaly, hepatic steatosis and simple cyst in the right lobe. Status post cholecystectomy.
== END 2022-08-24 08:27 | disposition home or self-care (01) ==
LOC: HO.HMGCX 08:26
PROVIDERS: PCP Internal Medicine; Visit Provider Internal Medicine
DX: R74.8 Abnormal levels of other serum enzymes (principal)
CPT/HCPCS: 76700

== ENCOUNTER 2022-08-26 09:59 | Outpatient (REF) | payer OTHER, SELFPAY ==
[2022-08-29 10:53] LABS: Mitochondrial Antibodies NEGATIVE (NEGATIVE)
[2022-08-30 22:03] LABS: Alk.Phos Iso. Macrohepatic 0 % (<=0); Alk.Phos Isoenzymes Bone 70 % (28-66); Alk.Phos Isoenzymes Intest 0 % (1-24); Alk.Phos Isoenzymes Liver 30 % (25-69); Alk.Phos Isoenzymes Placental 0 % (<=0); Alk.Phos Isoenzymes Total 174 U/L (37-153)
== END 2022-08-26 10:00 | disposition home or self-care (01) ==
LOC: HO.LAB 09:59
PROVIDERS: PCP Internal Medicine; Visit Provider Internal Medicine
DX: Z11.2 Encounter for screening for other bacterial diseases (principal); R74.8 Abnormal levels of other serum enzymes; Z80.0 Family history of malignant neoplasm of digestive organs
CPT/HCPCS: 84080; 86255; 86256; 87338

== ENCOUNTER 2022-09-07 12:07 | Outpatient (REF) | payer OTHER, SELFPAY ==
[2022-09-11 03:35] LABS: Calcium, Ionized 4.9 mg/dL (4.7-5.5)
== END 2022-09-07 12:08 | disposition home or self-care (01) ==
LOC: HO.HMGCLDS 12:07
PROVIDERS: PCP Internal Medicine; Visit Provider Internal Medicine
DX: R74.8 Abnormal levels of other serum enzymes (principal)
CPT/HCPCS: 36415; 82306; 82330; 83970; 84100

== ENCOUNTER 2022-09-22 11:57 | Outpatient (AMB) | payer OTHER, SELFPAY ==
--- NOTE | 2022-09-22 12:20 | MHC.OFFVIS ---
Intake Vital Signs 09/22/22 12:22 Height 5 ft 7 in Weight 210 lb BMI 32.9 BP 134/68 Blood Pressure Location Lt brachial Position Sitting Pulse 89 Intake Visit Reasons: 6 week fu Intake Note: Bonita presents in the office as a 6 week follow up. CC: She states that she is not having any concerns today. Superintendent Mechanical Required: Yes Superintendent Mechanical Name: Paola [id number] Allergies No Known Allergies [No Known Allergies*] Allergy (Verified 09/22/22 12:22) HPI HPI Comments History of Present Illness Details 61 y.o F with PMH of Grave's disease who has been referred here for elevated ALP intermittent x 2-3 times UNL. 08/11/22: Pt reports she has been seen by [facility] for this as well earleir this as was told she has fatty liver. Otherwise no abd pain, N,V, changes in bowel habits. US with elastography 06/2022: no ductal dilation noted. 4kPA stiffness corresponding with no fibrosis. Last colonoscopy was in 11/2021: x1 small T.A, repeat recommended in 7-10 years. Also reports having an EGD 5-10 years ago and was told to repeat it in 2 years due to her fam hx of gastric ca in father. 09/22/22: Labs reviewed. Fractionation of ALP showed primarily bone related ALP and further testing also came back positive for hyperparathyroidism. Pt is established with Dr Barber in Endocrinology at [facility] and was advised to call her office for follow up. Reports will also be faxed over to her office. Otherwise, does not report any abd pain, N,V, itching, abd distention. [facility] Medical History Annual physical exam Anxiety Atypical hyperplasia of breast Chronic GERD Depression HTN (hypertension) Hyperglycemia Hyperlipidemia Migraine headache Multinodular thyroid Nephrolithiasis Normal Pap smear Osteopenia Surgical History H/O colonoscopy History of esophagogastroduodenoscopy (EGD) History of hysterectomy Hx of cholecystectomy Status post breast reduction Family History Father Cancer Mother No problems noted. Social History Housing: Apartment Patient Tobacco Use Status: Never used Tobacco e-Cigarette/Vaping Use: Never Used Second Hand Smoke Exposure: No Current occupational status: unemployed Current occupational exposures/hazards: No Cognitive needs: No Hearing needs: No Vision needs: Yes Review of Systems Const All systems reviewed & are unremarkable except as noted in HPI and below Physical Exam Vital Signs: Last Vital Signs Pulse 89 09/22/22 12:22 BP 134/68 09/22/22 12:22 BMI result Body Mass Index 32.9 Gen appear: NAD HEENT: nonicteric, no cervical lymphadenopathy Chest: CTA CVS: Regular S1/S2 Abd: soft, nontender, nondistended, bowel sounds + Ext: no peripheral edema Neuro: A/Ox3, noted to move all extremities spontaneously Psych: interacting appropriately Assessment & Plan Assessment & Plan (1) Elevated alkaline phosphatase level: Code(s): R74.8 - Abnormal levels of other serum enzymes Plan: Appears to be secondary to bone related ALP based on iso-enzyme fractionation. Further testing shows elevated PTH (albeit with normal Jay and phos). Pt is established with [facility] and was advised to follow up with them. Labs were faxed over to Endocrine office as well. (2) Family history- stomach cancer: Code(s): Z80.0 - Family history of malignant neoplasm of digestive organs Plan: H pylori negative on labs. Will be set up for elective EGD to r/o GIM due to fam hx. Otherwise, PRN follow up. Coding Level of Care Code Est Pt Level 4 (06487) Diagnoses Elevated alkaline phosphatase level R74.8 Family history- stomach cancer Z80.0
[2022-09-22 12:22] VITALS: BP 134/68; PULSE 89; BMI 32.9
== END 2022-09-22 12:56 | disposition home or self-care (01) ==
PROVIDERS: PCP Internal Medicine; Visit Provider Internal Medicine
DX: R74.8 Abnormal levels of other serum enzymes (principal); Z80.0 Family history of malignant neoplasm of digestive organs
CPT/HCPCS: 99214

== ENCOUNTER → 2022-09-22 11:57 | Outpatient (BNVA) | payer OTHER, SELFPAY | PROVIDERS: PCP Internal Medicine; Visit Provider Internal Medicine | DX: R74.8 Abnormal levels of other serum enzymes (principal); Z80.0 Family history of malignant neoplasm of digestive organs | CPT/HCPCS: 99212 ==

== ENCOUNTER 2022-11-24 13:29 | Outpatient (AMB) | payer OTHER, SELFPAY ==
--- NOTE | 2022-11-24 13:32 | MHC.OFFVIS ---
Intake Intake Visit Reasons: cysto Intake Note: Patient presents today for a CYSTOSCOPY Procedure: Meds: Mirabegron & Vitamin B6 Allergies to Antibiotic: No Known Allergies Blood Thinner: None Urinalysis test clear for Cysto? YES Disposable Uro-G Cystoscope Cannula: Lot: [id number] Exp: 07/16/2024 Gravity Meter Operator Required: Yes Gravity Meter Operator Language: Insurance Claims Processor Name: Information Interpreted: non-clinical & clinical Cherry Sorter: Cherry Sorter Present Accompanied by: Self / Same As Patient Allergies No Known Allergies [No Known Allergies*] Allergy (Verified 11/24/22 13:35) HPI HPI Comments History of Present Illness Details Bonita BLAIR is a very pleasant female. She is a patient of Dr Kirby. She is seen for the following urologic conditions. - nephrolithiasis - overactive bladder - urethral caruncle Recurrence of urinary frequency and urgency Small leakage with cough, laugh Minimal improvement with Myrbetriq Cystoscopy today with significant urethral caruncle Bladder irritation Trial topical estrogen - 3 months daily, would reduced to 3 times a week if successful Does not have leakage on cough Urinary Urge/Frequency: They present today for followup up evaluation of urge/frequency Symptoms have been present since started 10/21 Current therapy includes none - concurrent diagnoses include irritable bowel syndrome Prior treatment(s) included anticholinergics - dry mouth 02/20 Cysto - filled with 800cc normal biopsy. Current symptoms include frequency Yes nocturia Yes 5-6 times urgency No The frequency of the symptom(s) occur hourly. Recent labs included a urinalysis - normal, normal specific gravity 06/21 Renal US NAD. Therapeutic plan dietary restrictions Nephrolithiasis/Urolithiasis: Discussed ultrasound results No stones seen Urolithiasis was diagnosed 2017. The patient previously had kidney stones whose composition w unknown. 24 Hour urine evaluation 12/20 , High oxalate > 30mg. Prior treatment(s) include observation 12/20 bilateral ESWL. Prior imaging includes 10/20 , a renal ultrasound, showing radiodense stone(s) 5mm x 2 on right, 5mm x1 on left 12/20 , a KUB x-ray, ? small right stone 06/21 , a renal ultrasound, showing no evidence of stones 05/22 , a renal ultrasound, showing no evidence of stones. - 07/23 renal ultrasound no evidence of stones - 07/25 renal ultrasound no evidence of stones Hydronephrosis none. Current therapeutic plan will be - Vit B-6 [facility] Medical History Multinodular thyroid Annual physical exam Normal Pap smear Anxiety Hyperglycemia HTN (hypertension) Osteopenia Nephrolithiasis Atypical hyperplasia of breast Depression Migraine headache Chronic GERD Hyperlipidemia Surgical History H/O colonoscopy History of esophagogastroduodenoscopy (EGD) Status post breast reduction History of hysterectomy Hx of cholecystectomy Family History Father Cancer Mother No problems noted. Social History Housing: Apartment Patient Tobacco Use Status: Never used Tobacco e-Cigarette/Vaping Use: Never Used Second Hand Smoke Exposure: No Current occupational status: unemployed Current occupational exposures/hazards: No Cognitive needs: No Hearing needs: No Vision needs: Yes Review of Systems Const Denies chills and Denies fever(s) Card Reports no additional complaints and Denies syncope Resp Denies cough GI Denies abdominal pain and Denies heartburn Reports as per HPI and Denies change in libido Neuro Denies syncope Psych Denies change in libido Endo Denies change in libido Physical Exam Const General: cooperative, healthy appearing, comfortable and no acute distress Orientation/consciousness: patient oriented x3 HEENT Face and sinus: Yes normal facial exam Mouth: moist mucous membranes Neck Neck: Yes normal visual inspection, Yes full ROM and Yes trachea midline Chest Chest palpation & inspection: normal inspection of the chest Resp Effort & Inspection: normal respiratory effort, able to speak in complete sentences and no respiratory distress GI Inspection: Yes normal to inspection Back/Spine/Pelvis Cervical Spine: normal cervical lordosis Thoracic/Lumbar Spine: thoracic and lumbar spine normal to inspection Skin General skin exam: no rashes or lesions noted Neuro General: patient oriented x3, gait normal, tone normal and moves all extremities Extrem General: Yes normal to inspection and Yes capillary refill normal Office Procedures Cystoscopy Consent Discussed risk and benefit or proposed procedure with the patient. Information consent for procedure given to the patient. Discussed technical aspects, risks, benefits and alternatives in full. Addressed all of the patient's questions and concerns regarding the procedure. The patient demonstrated knowledge and understanding. They wish to proceed with this procedure. Preparation The patient was prepped in the usual manner. A cupola operator insulation was present and in the room. Genitalia was prepped with betadine solution in a sterile manner. Lidocaine Jelly 2% was placed into the urethra and 16Fr flexible Olympus cystoscope was inserted into the meatus after adequate lubrication. Procedure Meatus normal position, caruncle, anterior irritation Urethra caruncle Bladder examination with retroflexion of cystoscope Bladder Orifices normal shape and position Trigone normal Bladder Capacity medium Trabeculations grade 1/2 Cellule Formation - Diverticulum Formation - Mucosal Erythema irritation Bladder Tumor - [id number] DISPOSABLE SCOPE URO-G FLEXIBLE SCOPE Procedure code (CPT) selection complete Office Meds lidocaine HCl 2 % mucosal jelly in applicator Performing Provider: Talon Liz MD Performing Location: [facility] [place] [facility] Administered by: Kermit Justice LPN on 11/24/22 14:03 Dose Route Admin Location Dispensed Lot Number Expiration Date NDC Preparatory Technician 10 mL intra-urethral 10 mL nitrofurantoin monohydrate/macrocrystals 100 mg capsule Performing Provider: Talon Liz MD Performing Location: [facility] [place] [facility] Administered by: Kermit Justice LPN on 11/24/22 14:03 Dose Route Admin Location Dispensed Lot Number Expiration Date NDC Preparatory Technician 100 mg PO 1 cap naproxen 500 mg tablet Performing Provider: Talon Liz MD Performing Location: [facility] [place] [facility] Administered by: Kermit Justice LPN on 11/24/22 14:03 Dose Route Admin Location Dispensed Lot Number Expiration Date NDC Preparatory Technician 500 mg PO 1 tab Results AMB Urinalysis, Automated UA Leukoctes 0 Carl/uL Last Edit by PAULA Bergman on 11/24/22 13:42 UA Nitrite Negative Last Edit by PAULA Bergman on 11/24/22 13:42 UA Urobilinogen 0.2 mg/dL Last Edit by PAULA Bergman on 11/24/22 13:42 UA Protein 0 mg/dL Last Edit by PAULA Bergman on 11/24/22 13:42 UA pH 6.0 Last Edit by Tejas Balderas PAULA on 11/24/22 13:42 UA Blood 0 Imer/uL Last Edit by Tejas Balderas FREDERICKA on 11/24/22 13:42 UA Specific [place] 1.015 Last Edit by Tejas Balderas, RMA on 11/24/22 13:42 UA Ketone Negative Last Edit by Tejas Balderas, RMA on 11/24/22 13:42 UA Bilirubin 0 mg/dL Last Edit by Tejas Balderas RMA on 11/24/22 13:42 UA Glucose 0 mg/dL Last Edit by Tejas Balderas RMA on 11/24/22 13:42 Results Reviewed Results Reviewed: Laboratory Last Values Urine pH (Auto) 6.0 11/24/22 13:36 Specific [place] (Auto) 1.015 11/24/22 13:36 Urine Protein (Auto) 0 mg/dL 11/24/22 13:36 Glucose (UA)(Auto) 0 mg/dL 11/24/22 13:36 Urine Ketones (Auto) Negative 11/24/22 13:36 Urine Blood (Auto) 0 Imer/uL 11/24/22 13:36 Urine Nitrite (Auto) Negative 11/24/22 13:36 Urine Bilirubin (Auto) 0 mg/dL 11/24/22 13:36 Urine Urobilinogen (Auto) 0.2 mg/dL 11/24/22 13:36 Leukocyte Esterase (Auto) 0 Carl/uL 11/24/22 13:36 Assessment & Plan Assessment & Plan (1) Urethral caruncle: Code(s): N36.2 - Urethral caruncle Plan Daily estradiol Orders: Orders AMB Cystoscopy Today N20.0 - Calculus of kidney, N39.46 - Mixed incontinence AMB Urinalysis Automated Today Z13.9 - Encounter for screening, unspecified Medications: New estradiol 0.01%(0.1mg/gram) pea-sized to urethra daily; 30 days 42.5 grams 2RF N30.20 - Other chronic cystitis without hematuria, N36.2 - Urethral caruncle Patient Instructions: Imaging studies, laboratory and physical exam results were discussed and reviewed in detail. No major barriers to patient understanding were identified. An opportunity to ask questions regarding the treatment plan was provided. All questions were answered. The patient expressed understanding and agreement with the above treatment plan. The patient is aware they should contact our office by phone for worsening of their current condition or the appearance of new urologic symptoms. Compliance is encouraged with any medications and followup testing that is ordered. It is a privilege to participate in the urologic care of your patient. If you have any questions or concerns regarding treatment for the above conditions, or other urologic issues, please do not hesitate to contact me. The office telephone contact is [phone]. This note is constructed using voice recognition software. While every effort has been made to ensure accuracy laboratory analyst errors may have been included. Yours sincerely, Dr Talon Liz MD, [facility] - Urology Providers of Expert, Compassionate Care for the Genitourinary System Coding Level of Care Code Est Pt Level 4 (94033) Diagnoses Urethral caruncle N36.2 CPT Codes Cystoscopy - CPT: 05307-Oogydaajib ([id number])
== END 2022-11-24 15:09 | disposition home or self-care (01) ==
PROVIDERS: PCP Internal Medicine; Visit Provider Urology
DX: N20.0 Calculus of kidney (principal); N39.46 Mixed incontinence; N32.81 Overactive bladder; N36.2 Urethral caruncle; Z13.9 Encounter for screening, unspecified
CPT/HCPCS: 52000; 99214

== ENCOUNTER → 2022-11-24 13:29 | Outpatient (BNVA) | payer OTHER, SELFPAY | PROVIDERS: PCP Internal Medicine; Visit Provider Urology | DX: N36.2 Urethral caruncle (principal); N32.81 Overactive bladder | CPT/HCPCS: 52000; 81003; 99212 ==

== ENCOUNTER 2023-02-22 12:48 | Outpatient (AMB) | payer OTHER, SELFPAY ==
--- NOTE | 2023-02-22 13:26 | MHC.OFFVIS ---
Intake Intake Visit Reasons: 3 month follow up Intake Note: Patient is present for Follow Up Urology Medications: Vitamin B6, Myrbetriq, Estrace Cream Antibiotic Allergy: None Blood Thinner: None PVR: 83ml's Ug Designer Required: Yes Accompanied by: Unknown Allergies No Known Allergies [No Known Allergies*] Allergy (Verified 02/22/23 14:14) Medication List - Last Reconciled 02/22/23 by STAN Machuca cholecalciferol (vitamin D3) 25 mcg PO DAILY dicyclomine 20 mg PO TID PRN estradiol 0.01%(0.1mg/gram) pea-sized to urethra daily; 30 days ipratropium bromide intranasal lorazepam mg PO meclizine 25 mg PO TID PRN methimazole 15 mg PO DAILY methimazole 10 mg PO DAILY olmesartan 20 mg PO DAILY omeprazole 20 mg PO DAILY pyridoxine (vitamin B6) 100 mg PO DAILY 90 days rosuvastatin 5 mg PO DAILY sodium chloride 5% ophthalmic (eye) BEDTIME terazosin 1 mg PO BEDTIME 30 days zolpidem 5 mg PO BEDTIME PRN HPI HPI Comments History of Present Illness Details Bonita is a Pashto-speaking 62-year-old female patient of Dr. Fields. She has a past medical history of anxiety, hypertension, osteopenia, nephrolithiasis, depression, migraines, chronic GERD, and hyperlipidemia. She presents to the office today for follow-up of her nephrolithiasis, overactive bladder, and urethral caruncle. In discussion with the patient today she reports feeling her urinary symptoms are worsening. She discusses her frustration regarding today's appointment with a nurse practitioner. She is willing to have todays appointment completed with me however moving forward would like future appointment with Dr. Liz. She reports feelings of incomplete bladder emptying. When asked she reports compliance with Estrace cream as prescribed. She denies having had any UTIs and or UTI like symptoms since her last office visit here approximately 3 months ago. When asked she does report urinary urgency and frequency with small voids. She otherwise denies hematuria, dysuria, foul smelling urine, changes to urinary stream, flank pain, fever, and or chills. She does have a history of nephrolithiasis however most recent ultrasound from August no nephrolithiasis noted. During patient's last office follow-up with Dr. Liz November cystoscopy was performed noting significant urethral caruncle as well as bladder irritation. Recommendations were made for Estrace cream 3 times per week. In office urinalysis results reviewed with the patient today. PVR 83 mL. She otherwise offers no other issues or concerns at this time. Nephrolithiasis/Urolithiasis: Urolithiasis was diagnosed 2017. The patient previously had kidney stones whose composition w unknown. 24 Hour urine evaluation 12/20 , High oxalate > 30mg. Prior treatment(s) include observation 12/20 bilateral ESWL. Prior imaging includes 10/20 , a renal ultrasound, showing radiodense stone(s) 5mm x 2 on right, 5mm x1 on left 12/20 , a KUB x-ray, ? small right stone 06/21 , a renal ultrasound, showing no evidence of stones 05/22 , a renal ultrasound, showing no evidence of stones. - 07/23 renal ultrasound no evidence of stones - 07/25 renal ultrasound no evidence of stones Hydronephrosis none. Current therapeutic plan will be - Vit B-6. [facility] Medical History Multinodular thyroid Annual physical exam Normal Pap smear Anxiety Hyperglycemia HTN (hypertension) Osteopenia Nephrolithiasis Atypical hyperplasia of breast Depression Migraine headache Chronic GERD Hyperlipidemia Surgical History H/O colonoscopy History of esophagogastroduodenoscopy (EGD) Status post breast reduction History of hysterectomy Hx of cholecystectomy Family History Father Cancer Mother No problems noted. Social History Housing: Apartment Patient Tobacco Use Status: Never used Tobacco e-Cigarette/Vaping Use: Never Used Second Hand Smoke Exposure: No Current occupational status: unemployed Current occupational exposures/hazards: No Cognitive needs: No Hearing needs: No Vision needs: Yes Review of Systems Const Reports as per HPI Eyes Reports no additional complaints ENT Reports no additional complaints Card Reports as per HPI Resp Reports no additional complaints GI Reports as per HPI Reports as per HPI Musc Reports as per HPI Neuro Reports as per HPI Psych Reports as per HPI Endo Reports no additional complaints Bong/Lymph Reports no additional complaints Aller/Immun Reports no additional complaints Physical Exam Const General: cooperative, comfortable, no acute distress, well developed, alert and awake Orientation/consciousness: patient oriented x3 Limitations: no limitations HEENT Head: Yes normal to inspection, Yes normocephalic and Yes atraumatic Ears: hearing grossly normal bilaterally Eyes General: appearance normal, both eyes and all related structures Neck Neck: Yes normal visual inspection and Yes trachea midline Chest Chest palpation & inspection: normal inspection of the chest Resp Effort & Inspection: normal respiratory effort and able to speak in complete sentences Cardio Rate: regular rate GI Inspection: Yes normal to inspection General: Yes no CVA tenderness Back/Spine/Pelvis Back: no CVA tenderness Skin General skin exam: no rashes or lesions noted Neuro General: patient oriented x3 Extrem General: Yes normal to inspection Psych Appearance: grossly normal and well kempt Mental Status: mental status grossly normal Speech and movement: Normal speech and movement present and Clear speech present Affect: normal affect Attitude: cooperative Thought process: Normal thought process present Thought content: Normal thought content present Insight: Fair insight present (Psych) Judgement: Fair judgement present (Psych) Office Procedures Post Void Residual Post Residual Void Post Void Residual (PVR): [id number] Void Residual by ultrasound Results AMB Urinalysis, Automated UA Leukoctes 0 Carl/uL Last Edit by [employer] on 02/22/23 13:52 UA Nitrite Negative Last Edit by [employer] on 02/22/23 13:52 UA Urobilinogen 0.2 mg/dL Last Edit by [employer] on 02/22/23 13:52 UA Protein 0 mg/dL Last Edit by [employer] on 02/22/23 13:52 UA pH 6.0 Last Edit by [employer] on 02/22/23 13:52 UA Blood 0 Imer/uL Last Edit by [employer] on 02/22/23 13:52 UA Specific [place] 1.020 Last Edit by [employer] on 02/22/23 13:52 UA Ketone Negative Last Edit by [employer] on 02/22/23 13:52 UA Bilirubin 0 mg/dL Last Edit by [employer] on 02/22/23 13:52 UA Glucose 0 mg/dL Last Edit by [employer] on 02/22/23 13:52 Results Reviewed Results Reviewed: Laboratory Last Values Urine pH (Auto) 6.0 02/22/23 13:51 Specific [place] (Auto) 1.020 02/22/23 13:51 Urine Protein (Auto) 0 mg/dL 02/22/23 13:51 Glucose (UA)(Auto) 0 mg/dL 02/22/23 13:51 Urine Ketones (Auto) Negative 02/22/23 13:51 Urine Blood (Auto) 0 Imer/uL 02/22/23 13:51 Urine Nitrite (Auto) Negative 02/22/23 13:51 Urine Bilirubin (Auto) 0 mg/dL 02/22/23 13:51 Urine Urobilinogen (Auto) 0.2 mg/dL 02/22/23 13:51 Leukocyte Esterase (Auto) 0 Carl/uL 02/22/23 13:51 Assessment & Plan Assessment & Plan (1) Urethral caruncle: Code(s): N36.2 - Urethral caruncle (2) Mixed incontinence: Code(s): N39.46 - Mixed incontinence (3) Feeling of incomplete bladder emptying: Code(s): R39.14 - Feeling of incomplete bladder emptying Plan In office urinalysis results reviewed with the patient today; as noted above. PVR 83ml's Stop Myrbetriq Start terazosin 1 mg at bedtime. Continue Estrace cream as discussed and prescribed. Discussed bladder triggers/irritants. Discussed pelvic floor therapy. Will continue with surveillance monitoring of nephrolithiasis; will reassess with imaging in 6 months. Discussed, educated, encouraged on the importance of drinking plenty of water daily. Continue vitamin B6 daily. Continue adding 1 oz of lemon juice Follow-up with Dr. Liz as requested in 2-3 months; or sooner with any issues, concerns, and or questions. Orders: Orders AMB Post Void Residual by ultrasound Today A49.9 - Bacterial infection, unspecified, N39.0 - Urinary tract infection, site not specified AMB Urinalysis Automated Today Z13.9 - Encounter for screening, unspecified Medications: New terazosin 1 mg PO BEDTIME 30 days 30 caps 1RF N32.81 - Overactive bladder, R39.12 - Poor urinary stream Refilled estradiol 0.01%(0.1mg/gram) pea-sized to urethra daily; 30 days 42.5 grams 2RF N30.20 - Other chronic cystitis without hematuria, N36.2 - Urethral caruncle pyridoxine (vitamin B6) 100 mg PO DAILY 90 days 90 tabs 3RF N20.0 - Calculus of kidney Discontinued mirabegron ER Discontinued Reason: Doctor's Order 50 mg PO DAILY 90 days 90 tabs 0RF N39.46 - Mixed incontinence Patient Instructions: The patient had an opportunity to ask questions regarding the treatment plan. All questions were answered. Physical exam, labs, and imaging were discussed and reviewed in detail. As well as risks, benefits, and discussion of treatment choices. No major barriers to understanding were identified. The patient expressed understanding and agreement with the above treatment plan. The patient was made aware they should contact our office by phone for worsening of their current condition, the appearance of new symptoms, or with any questions or concerns. Compliance is encouraged with any medications and follow up testing that is ordered. It is a privilege to be allowed the opportunity to participate in? your urological care.? Again, if you have any questions or concerns If you have any questions or concerns please do not hesitate to contact me. The office is [phone]. This note is constructed using voice recognition software. While every effort has been made to ensure accuracy wellness health coach errors may have been included. Yours sincerely, HELGA Machuca-CHIN Coding Level of Care Code Est Pt Level 4 (05654) Diagnoses Urethral caruncle N36.2 Mixed incontinence N39.46 Feeling of incomplete bladder emptying R39.14 CPT Codes Post Residual Void - PVR CPT Code: 11202-Vkxz Void Residual by ultrasound ([id number])
== END 2023-02-22 14:25 | disposition home or self-care (01) ==
PROVIDERS: PCP Internal Medicine; Visit Provider Nurse Practitioner Family
DX: N36.2 Urethral caruncle (principal); N39.46 Mixed incontinence; R39.14 Feeling of incomplete bladder emptying; Z13.9 Encounter for screening, unspecified
CPT/HCPCS: 99214

== ENCOUNTER → 2023-02-22 12:48 | Outpatient (BNVA) | payer OTHER, SELFPAY | PROVIDERS: PCP Internal Medicine; Visit Provider Nurse Practitioner Family | DX: N36.2 Urethral caruncle (principal); N39.46 Mixed incontinence; R39.14 Feeling of incomplete bladder emptying | CPT/HCPCS: 51798; 81003; 99212 ==

== ENCOUNTER 2023-03-15 11:10 | Outpatient (AMB) | payer OTHER, SELFPAY ==
--- NOTE | 2023-03-15 12:15 | MHC.PC.OV ---
Vital Signs 03/15/23 12:23 Height 5 ft 7 in Weight 213 lb BMI 33.4 BP 128/78 Blood Pressure Location Rt brachial Position Sitting Pulse 82 Pulse Source Pulse Oximeter Pulse Oximetry (%) 97 Oxygen Delivery Method Room Air Intake Visit Reasons: Annual PE Allergies No Known Allergies [No Known Allergies*] Allergy (Verified 03/15/23 12:17) Medication List - Last Reconciled 03/15/23 by Zaida Kirby MD cholecalciferol (vitamin D3) 25 mcg PO DAILY dicyclomine 20 mg PO TID PRN estradiol 0.01%(0.1mg/gram) pea-sized to urethra daily; 30 days ipratropium bromide intranasal lorazepam mg PO methimazole 15 mg PO DAILY methimazole 10 mg PO DAILY olmesartan 20 mg PO DAILY omeprazole 20 mg PO DAILY pyridoxine (vitamin B6) 100 mg PO DAILY 90 days rosuvastatin 5 mg PO DAILY sodium chloride 5% ophthalmic (eye) BEDTIME terazosin 1 mg PO BEDTIME 30 days Tobacco use date assessed: 03/15/23 Dental Screening Dental Screen Date: 03/15/23 Did you have a dental visit in the last 12 months?: Yes Did you have a dental problem in the last 6 months where you did not have access to dental care?: No Was dental information given to patient?: Patient has dentist HPI Annual PE HPI Details Pt is for PE. PFS Medical History (Updated 03/15/23 @ 13:20 by Zaida Kirby MD) Multinodular thyroid Annual physical exam Normal Pap smear Anxiety Hyperglycemia HTN (hypertension) Osteopenia Nephrolithiasis Atypical hyperplasia of breast Depression Migraine headache Chronic GERD Hyperlipidemia Surgical History H/O colonoscopy History of esophagogastroduodenoscopy (EGD) Status post breast reduction History of hysterectomy Hx of cholecystectomy Family History Father Cancer Mother No problems noted. Social History Housing: Apartment Patient Tobacco Use Status: Never used Tobacco e-Cigarette/Vaping Use: Never Used Second Hand Smoke Exposure: No Current occupational status: unemployed Current occupational exposures/hazards: No Cognitive needs: No Hearing needs: No Vision needs: Yes Questionnaire PHQ-9 Over the last 2 weeks, how often have you been bothered by any of the following problems? 1. Little interest or pleasure in doing things: not at all 2. Feeling down, depressed, or hopeless: not at all 3. Trouble falling or staying asleep, or sleeping too much: not at all 4. Feeling tired or having little energy: not at all 5. Poor appetite or overeating: not at all 6. Feeling bad about yourself - or that you are a failure or have let yourself or your family down: not at all 7. Trouble concentrating on things, such as reading the newspaper or watching television: not at all 8. Moving or speaking so slowly that other people could have noticed. Or the opposite - being so fidgety or restless that you have been moving around a lot more than usual: not at all 9. Thoughts that you would be better off or of hurting yourself in some way: not at all Total score: 0 Depression Screening Interpretation: Negative Depression Screening Done: Yes Source: Developed by Drs. Po Selby, Carla Ybarra, Maxwell Headley and colleagues, with an educational austin from [employer]. Thrive Questionnaire Date Thrive assessed: 03/15/23 I am a: Patient What is your living situation today?: I have a steady place to live Within the past 12 months, did the food you bought not last and you didn't have the money to get more?: Never true Within the past 12 months, did you worry whether your food would run out before you got money to buy more?: Never true Do you have trouble paying for medicines?: No Do you have trouble getting transportation to medical appointments?: No Do you have trouble paying your heating and electricity bill?: No Do you have trouble taking care of your child, family member or friend?: No Do you have trouble with day-to-day activities such as bathing, preparing meals, shopping, managing finances, etc.?: No Are you currently unemployed and looking for a job?: No Are you interested in more education?: No Please select the resources that you would like help with: None Currently or been in a relationship where the following occur: no concerns reported AUDIT C Alcohol Use Questionnaire (AUDIT-C) 1. How often do you have a drink containing alcohol?: Never 3. How often do you have six or more drinks on one occasion?: Never Total Score: 0 Score Reviewed/Action Taken: Yes DEBORAH-7 AMB Questionnaire DEBORAH-7 Date DEBORAH - 7 assessed: 03/15/23 Feeling nervous, anxious, or on edge: 0 = Not at all Not being able to stop or control worryin = Not at all Worrying too much about different things: 0 = Not at all Trouble relaxin = Not at all Being so restless that it is hard to sit still: 0 = Not at all Becoming easily annoyed or irritable: 0 = Not at all Feeling afraid as if something awful might happen: 0 = Not at all Total DEBORAH-7 score (0-4 normal; 5-9 mild; 10-14 moderate; 15-21 severe): 0 Source: Developed by Drs. Po Selby, Carla Ybarra, Maxwell Headley and colleagues, with an educational austin from [employer]. Review of Systems Const All systems reviewed & are unremarkable except as noted in HPI and below Reports no additional complaints Eyes Reports no additional complaints ENT Reports no additional complaints Card Reports no additional complaints Resp Reports no additional complaints GI Reports no additional complaints Reports no additional complaints Musc Reports no additional complaints Physical exam (Primary Care) Vital Signs: Last Vital Signs Pulse 82 03/15/23 12:23 BP 128/78 03/15/23 12:23 Pulse Ox 97 03/15/23 12:23 Oxygen Delivery Method Room Air 03/15/23 12:23 BMI result Body Mass Index 33.4 Tobacco/Smoking Status: Tobacco use Status Tobacco use date assessed 03/15/23 03/15/23 12:18 Patient Tobacco Use Status Never used Tobacco 03/15/23 12:18 e-Cigarette/Vaping Use Never Used 03/15/23 12:18 PHQ-9: PHQ-9 Score PHQ-9: Total score 0 03/15/23 13:02 Depression Screening Interpretation: Negative Thrive Assessment: Date of Thrive Assessment Date Thrive assessed 03/15/23 03/15/23 13:02 Currently or been in a relationship where the following occur: no concerns reported Const General: no acute distress HENMT Head: Yes normal to inspection Ears: hearing grossly normal bilaterally Face and sinus: Yes normal facial exam Throat: Yes posterior oropharynx normal Neck Neck: Yes no lymphadenopathy and Yes supple Resp Effort & Inspection: normal respiratory effort Auscultation: clear to auscultation bilaterally Cardio Rhythm: regular rhythm Heart sounds: S1 normal heart sound present and S2 normal heart sound present GI Inspection: Yes normal to inspection Palpation (GI): Soft to palpation Percussion: Yes normal to percussion Auscultation: normal bowel sounds Assessment and Plan Assessment & Plan (1) Postmenopausal: Code(s): Z78.0 - Asymptomatic menopausal state Plan: check DEXA (2) Hyperglycemia: Code(s): R73.9 - Hyperglycemia, unspecified Plan: A1C 5.5, ADA diet, exercise, weight loss (3) Hyperlipidemia: Code(s): E78.5 - Hyperlipidemia, unspecified Plan: cont statin (4) HTN (hypertension): Comment: BP goal less than 130/80 Code(s): I10 - Essential (primary) hypertension Plan: cont meds (5) Hyperthyroidism: Comment: Follow-up with [facility] Code(s): E05.90 - Thyrotoxicosis, unspecified without thyrotoxic crisis or storm Plan: on Methimazole (6) Normal Pap smear: 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 Panel Fast 6 Months E78.5 - Hyperlipidemia, unspecified, I10 - Essential (primary) hypertension, R73.9 - Hyperglycemia, unspecified Lipid Panel 6 Months E78.5 - Hyperlipidemia, unspecified, I10 - Essential (primary) hypertension, R73.9 - Hyperglycemia, unspecified Vitamin D 25-OH Total 6 Months E78.5 - Hyperlipidemia, unspecified, I10 - Essential (primary) hypertension, R73.9 - Hyperglycemia, unspecified Parathyroid Hormone Intact 6 Months E78.5 - Hyperlipidemia, unspecified, I10 - Essential (primary) hypertension, R73.9 - Hyperglycemia, unspecified Hemoglobin A1c 6 Months E78.5 - Hyperlipidemia, unspecified, I10 - Essential (primary) hypertension, R73.9 - Hyperglycemia, unspecified Coding Level of Care Code Est Pt Prev Care 40-64y(33895) Diagnoses Postmenopausal Z78.0 Hyperglycemia R73.9 Hyperlipidemia E78.5 HTN (hypertension) I10 Hyperthyroidism E05.90 Normal Pap smear Z12.4
[2023-03-15 12:23] VITALS: BP 128/78; PULSE 82; O2SAT 97; BMI 33.4
== END 2023-03-15 13:15 | disposition home or self-care (01) ==
PROVIDERS: PCP Internal Medicine; Visit Provider Internal Medicine
DX: Z00.00 Encounter for general adult medical examination without abnormal findings (principal); R73.9 Hyperglycemia, unspecified; Z78.0 Asymptomatic menopausal state; E78.5 Hyperlipidemia, unspecified; I10 Essential (primary) hypertension; E05.90 Thyrotoxicosis, unspecified without thyrotoxic crisis or storm
CPT/HCPCS: 99396

== ENCOUNTER 2023-05-09 10:30 | Outpatient (AMB) | payer OTHER, SELFPAY ==
--- NOTE | 2023-05-09 11:30 | A.OFFVIS_ITS ---
Intake Intake Visit Reasons: Mixed incontinence Intake Note: Patient presents today for a follow-up on mixed incontinence Meds- Vitamin B6, Terazosin Allergies to Antibiotic- No Known Allergies Blood Thinner- None Post Void Residual: 22ml Fruit Press Operator Required: No Accompanied by: Self / Same As Patient Allergies No Known Allergies [No Known Allergies*] Allergy (Verified 05/09/23 11:37) Medication List - Last Reconciled 05/09/23 by Talon Liz MD cholecalciferol (vitamin D3) 25 mcg PO DAILY dicyclomine 20 mg PO TID PRN estradiol 0.01%(0.1mg/gram) pea-sized to urethra daily; 30 days ipratropium bromide intranasal lorazepam mg PO methimazole 10 mg PO DAILY olmesartan 20 mg PO DAILY omeprazole 20 mg PO DAILY pyridoxine (vitamin B6) 50 mg PO DAILY 90 days rosuvastatin 5 mg PO DAILY sodium chloride 5% ophthalmic (eye) BEDTIME tadalafil 5 mg PO DAILY 90 days HPI HPI Comments History of Present Illness Details Bonita is a Austrian-speaking 62-year-old female patient of Dr. Fields. She has a past medical history of anxiety, hypertension, osteopenia, nephrolithiasis, depression, migraines, chronic GERD, and hyperlipidemia. She presents to the office today for follow-up of her nephrolithiasis, overactive bladder, and urethral caruncle. In discussion with the patient today she reports feeling her urinary symptoms are worsening. She discusses her frustration regarding today's appointment with a nurse practitioner. She is willing to have todays appointment completed with me however moving forward would like future appointment with Dr. Liz. She reports feelings of incomplete bladder emptying. When asked she reports compliance with Estrace cream as prescribed. She denies having had any UTIs and or UTI like symptoms since her last office visit here approximately 3 months ago. When asked she does report urinary urgency and frequency with small voids. She otherwise denies hematuria, dysuria, foul smelling urine, changes to urinary stream, flank pain, fever, and or chills. She does have a history of nephrolithiasis however most recent ultrasound from August no nephrolithiasis noted. During patient's last office follow-up with Dr. Liz November cystoscopy was performed noting significant urethral caruncle as well as bladder irritation. Recommendations were made for Estrace cream 3 times per week. In office urinalysis results reviewed with the patient today. PVR 83 mL. She otherwise offers no other issues or concerns at this time. Bonita BLAIR is a very pleasant female. She is a patient of Dr Kirby. She is seen for the following urologic conditions. - nephrolithiasis - overactive bladder - failed Myrbetriq - urethral caruncle Six-month follow-up Topical estrogen PVR 22 Austrian translation provided in office by qualified mobile paramedical examiner Still complaining of urinary urgency and frequency Minimal benefit from terazosin Trial of tadalafil for bladder stabilization Nephrolithiasis/Urolithiasis: Urolithiasis was diagnosed 2017. The patient previously had kidney stones whose composition w unknown. 24 Hour urine evaluation 12/20 , High oxalate > 30mg. Prior treatment(s) include observation 12/20 bilateral ESWL. Prior imaging includes 10/20 , a renal ultrasound, showing radiodense stone(s) 5mm x 2 on right, 5mm x1 on left 12/20 , a KUB x-ray, ? small right stone 06/21 , a renal ultrasound, showing no evidence of stones 05/22 , a renal ultrasound, showing no evidence of stones. - 07/23 renal ultrasound no evidence of stones - 07/25 renal ultrasound no evidence of stones Hydronephrosis none. Current therapeutic plan will be - Vit B-6 Urethral caruncle Cystoscopy 11/25 [facility] Medical History Multinodular thyroid Annual physical exam Normal Pap smear Anxiety Hyperglycemia HTN (hypertension) Osteopenia Nephrolithiasis Atypical hyperplasia of breast Depression Migraine headache Chronic GERD Hyperlipidemia Surgical History H/O colonoscopy History of esophagogastroduodenoscopy (EGD) Status post breast reduction History of hysterectomy Hx of cholecystectomy Family History Father Cancer Mother No problems noted. Social History Housing: Apartment Patient Tobacco Use Status: Never used Tobacco e-Cigarette/Vaping Use: Never Used Second Hand Smoke Exposure: No Current occupational status: unemployed Current occupational exposures/hazards: No Cognitive needs: No Hearing needs: No Vision needs: Yes Review of Systems Const Denies chills and Denies fever(s) Card Reports no additional complaints and Denies syncope Resp Denies cough GI Denies abdominal pain and Denies heartburn Reports as per HPI and Denies change in libido Neuro Denies syncope Psych Denies change in libido Endo Denies change in libido Physical Exam Const General: cooperative, healthy appearing, comfortable and no acute distress Orientation/consciousness: patient oriented x3 HEENT Face and sinus: Yes normal facial exam Mouth: moist mucous membranes Neck Neck: Yes normal visual inspection, Yes full ROM and Yes trachea midline Chest Chest palpation & inspection: normal inspection of the chest Resp Effort & Inspection: normal respiratory effort, able to speak in complete sentences and no respiratory distress GI Inspection: Yes normal to inspection Back/Spine/Pelvis Cervical Spine: normal cervical lordosis Thoracic/Lumbar Spine: thoracic and lumbar spine normal to inspection Skin General skin exam: no rashes or lesions noted Neuro General: patient oriented x3, gait normal, tone normal and moves all extremities Extrem General: Yes normal to inspection and Yes capillary refill normal Office Procedures Post Void Residual Post Residual Void Post Void Residual (PVR): 22 [id number] Void Residual by ultrasound Results AMB Urinalysis, Automated UA Leukoctes 0 Carl/uL Last Edit by Addis Paul CMA on 05/09/23 11 :46 UA Nitrite Negative Last Edit by Addis Paul CMA on 05/09/23 11: 46 UA Urobilinogen 0.2 mg/dL Last Edit by Addis Paul CMA on 4 11:46 UA Protein 0 mg/dL Last Edit by Addis Paul CMA on 05/09/23 11:46 UA pH 6.0 Last Edit by Addis Paul CMA on 05/09/23 11:46 UA Blood 0 Imer/uL Last Edit by Addis Paul CMA on 05/09/23 11:46 UA Specific [place] 1.015 Last Edit by Addis Paul, [facility] on 11:46 UA Ketone Negative Last Edit by Addis Paul [facility] on 05/09/23 11:4 6 UA Bilirubin 0 mg/dL Last Edit by Addis Paul, [facility] on 05/09/23 11: 46 UA Glucose 0 mg/dL Last Edit by Addis Paul [facility] on 05/09/23 11:46 Results Reviewed Results Reviewed: Laboratory Last Values Urine pH (Auto) 6.0 05/09/23 11:38 Specific [place] (Auto) 1.015 05/09/23 11:38 Urine Protein (Auto) 0 mg/dL 05/09/23 11:38 Glucose (UA)(Auto) 0 mg/dL 05/09/23 11:38 Urine Ketones (Auto) Negative 05/09/23 11:38 Urine Blood (Auto) 0 Imer/uL 05/09/23 11:38 Urine Nitrite (Auto) Negative 05/09/23 11:38 Urine Bilirubin (Auto) 0 mg/dL 05/09/23 11:38 Urine Urobilinogen (Auto) 0.2 mg/dL 05/09/23 11:38 Leukocyte Esterase (Auto) 0 Carl/uL 05/09/23 11:38 Assessment & Plan Assessment & Plan (1) Overactive bladder: Code(s): N32.81 - Overactive bladder (2) Urethral caruncle: Code(s): N36.2 - Urethral caruncle (3) Nephrolithiasis: Comment: asymptomatic Code(s): N20.0 - Calculus of kidney Plan Three-month follow-up Orders: Orders AMB Urinalysis Automated Today R33.9 - Retention of urine, unspecified AMB Post Void Residual by ultrasound Today R33.9 - Retention of urine, unspecified Medications: New tadalafil Bladder stability 5 mg PO DAILY 90 tabs 0RF bladder stability 90 days N32.81 - Overactive bladder Changed From pyridoxine (vitamin B6) 100 mg PO DAILY 90 tabs 3RF 90 days N20.0 - Calculus of kidney To pyridoxine (vitamin B6) 50 mg PO DAILY 90 tabs 3RF 90 days N20.0 - Calculus of kidney Discontinued terazosin Discontinued Reason: Patient Completed Course 1 mg PO BEDTIME 30 caps 1RF 30 days N32.81 - Overactive bladder, R39.12 - Poor urinary stream Patient Instructions: Imaging studies, laboratory and physical exam results were discussed and reviewed in detail. No major barriers to patient understanding were identified. An opportunity to ask questions regarding the treatment plan was provided. All questions were answered. The patient expressed understanding and agreement with the above treatment plan. The patient is aware they should contact our office by phone for worsening of their current condition or the appearance of new urologic symptoms. Compliance is encouraged with any medications and followup testing that is ordered. It is a privilege to participate in the urologic care of your patient. If you have any questions or concerns regarding treatment for the above conditions, or other urologic issues, please do not hesitate to contact me. The office te lephone contact is [phone]. This note is constructed using voice recognition software. While every effort has been made to ensure accuracy rope cutter errors may have been included. Yours sincerely, Dr Talon Liz MD, [facility] - Urology Providers of Expert, Compassionate Care for the Genitourinary System Coding Level of Care Code Est Pt Level 4 (79256) Diagnoses Overactive bladder N32.81 Urethral caruncle N36.2 Nephrolithiasis N20.0 CPT Codes Post Residual Void - PVR CPT Code: 03818-[id number] Void Residual by ultrasound ([id number])
== END 2023-05-09 12:03 | disposition home or self-care (01) ==
PROVIDERS: PCP Internal Medicine; Visit Provider Urology
DX: N32.81 Overactive bladder (principal); N36.2 Urethral caruncle; N20.0 Calculus of kidney; R33.9 Retention of urine, unspecified
CPT/HCPCS: 99214

== ENCOUNTER 2023-05-09 12:07 | Outpatient (REF) | payer OTHER, SELFPAY ==
--- NOTE | ~2023-05-09 | MM_ITS ---
EXAMINATION: BONE DENSITOMETRY CLINICAL INDICATION: Asymptomatic menopausal state. COMPARISON: Baseline BD dated 10/08/2020. TECHNIQUE: Using a [employer] DXA System (software version: 13.1) manufactured by [employer], dual-energy x-ray absorptiometry was performed of the lumbar spine and left hip. The images are of good technical quality. Summary results are attached. FINDINGS: LEFT FEMUR, NECK: Current: BMD 0.793 g/cm2, Z-score -1.1, T-score -1.8, osteopenia. Baseline: BMD 0.771 g/cm2. LEFT FEMUR, TOTAL: Current: BMD 0.866 g/cm2, Z-score -0.8, T-score -1.1, osteopenia, 5.5% increase from baseline (<5% change is not significant). Baseline: BMD 0.821 g/cm2. AP SPINE L1-L4: Current: BMD 0.945 g/cm2, Z-score -1.6, T-score -2.0, osteopenia, 4.9% increase from baseline (<5% change is not significant). Baseline: BMD 0.901 g/cm2. IDENTIFIED RISK FACTORS: Early menopause, height loss, secondary osteoporosis, hysterectomy. HISTORY OF FRACTURE: None listed. MEDICATIONS: Vitamin D. MM/XR DEXA axial skeleton IMPRESSION: 1. DIAGNOSIS: Osteopenia based on the lowest T-score value of -2.0 in the lumbar spine applying World Health Organization criteria. 2. 10-YEAR FRACTURE RISK PREDICTION, FRAX: Major osteoporotic fracture (clinical spine, forearm, hip or shoulder) 4.9%. Hip fracture 0.5%. 3. Treatment Recommendations: NOF guidelines recommend consideration for treatment in postmenopausal women and men age 50 and older presenting with the following: -A hip or vertebral (clinical or morphometric) fracture. -T-score less than or equal to -2.5 at the femoral neck or spine after appropriate evaluation to exclude secondary causes. -Low bone mass at the hip or spine and a 10-year fracture probability by FRAX of greater than or equal to 3% for hip fracture or greater than or equal to 20% for major osteoporotic fracture based on the [place] adapted WHO algorithm. 4. Other Recommendations: All treatment decisions require clinical judgment and consideration of individual patient factors, including patient preferences, comorbidities, previous drug use, risk factors not captured in the FRAX model (e.g. frailty, falls, vitamin D deficiency, increased bone turnover, interval significant decline in bone density) and possible under or overestimation of fracture risk by FRAX. Additional medical evaluation for secondary cause of low bone mineral density may be appropriate. FUTURE SCAN RECOMMENDATION: People with diagnosed cases of osteoporosis or at high risk for fracture should have regular bone mineral density tests. For patients eligible for Medicare, routine testing is allowed once every 2 years. The testing frequency can be increased to one year for patients who have rapidly progressing disease, those who are receiving or discontinuing medical therapy to restore bone mass, or have additional risk factors.
== END 2023-05-09 12:08 | disposition home or self-care (01) ==
LOC: HO.MAMMO 12:07
PROVIDERS: Visit Provider Internal Medicine
DX: Z13.820 Encounter for screening for osteoporosis (principal); Z78.0 Asymptomatic menopausal state; N32.81 Overactive bladder; N36.2 Urethral caruncle; N20.0 Calculus of kidney
CPT/HCPCS: 51798; 77080; 81003; 99212

== ENCOUNTER 2023-05-23 13:28 | Outpatient (AMB) | payer OTHER, SELFPAY ==
--- NOTE | 2023-05-23 13:45 | A.OFFVIS_ITS ---
Intake Vital Signs 05/23/23 13:47 Height 5 ft 7 in Weight 213 lb 13.574 oz BMI 33.5 BP 144/66 H Blood Pressure Location Lt brachial Position Sitting Pulse 77 Intake Visit Reasons: Elevated alkaline phosphatase level Intake Note: Bonita presents in the office as a follow up for elevated alk phos levels. CC: Gas and pains in the stomach. She takes the medication she states but she still has the pains in her stomach. Wearing Apparel Folder Required: Yes Wearing Apparel Folder Name: Allergies No Known Allergies [No Known Allergies*] Allergy (Verified 05/23/23 13:49) HPI HPI Comments History of Present Illness Details 61 y.o F with PMH of Grave's disease who has been referred here for elevated ALP intermittent x 2-3 times UNL. 08/11/22: Pt reports she has been seen by [facility] for this as well earleir this as was told she has fatty liver. Otherwise no abd pain, N,V, changes in bowel habits. US with elastography 06/2022: no ductal dilation noted. 4kPA stiffness corresponding with no fibrosis. Last colonoscopy was in 11/2021: x1 small T.A, repeat recommended in 7-10 years. Also reports having an EGD 5-10 years ago and was told to repeat it in 2 years due to her fam hx of gastric ca in father. 09/22/22: Labs reviewed. Fractionation of ALP showed primarily bone related ALP and further testing also came back positive for hyperparathyroidism. Pt is established with Dr Barber in Endocrinology at [facility] and was advised to call her office for follow up. Reports will also be faxed over to her office. Otherwise, does not report any abd pain, N,V, itching, abd distention. 05/23/23: Here for follow up for abd discomfort and bloating. Office had been attempting to schedule her since last year. Currently pt reports has mid epigastric pain which is burning assoc with nausea, bloating and frequent belching. Was started on omeprazole but does report had better sx control on nexium. Diet rich in high FODMAPS which could be contributing. [facility] Medical History Multinodular thyroid Annual physical exam Normal Pap smear Anxiety Hyperglycemia HTN (hypertension) Osteopenia Nephrolithiasis Atypical hyperplasia of breast Depression Migraine headache Chronic GERD Hyperlipidemia Surgical History H/O colonoscopy History of esophagogastroduodenoscopy (EGD) Status post breast reduction History of hysterectomy Hx of cholecystectomy Family History Father Cancer Mother No problems noted. Social History Housing: Apartment Patient Tobacco Use Status: Never used Tobacco e-Cigarette/Vaping Use: Never Used Second Hand Smoke Exposure: No Current occupational status: unemployed Current occupational exposures/hazards: No Cognitive needs: No Hearing needs: No Vision needs: Yes Review of Systems Const All systems reviewed & are unremarkable except as noted in HPI and below Physical Exam Vital Signs: Last Vital Signs Pulse 77 05/23/23 13:47 BP 144/66 H 05/23/23 13:47 BMI result Body Mass Index 33.5 NAD nonicteric no overt resp distress abd soft, nondistended no peripheral edema Assessment & Plan Assessment & Plan (1) Abdominal pain: Code(s): R10.9 - Unspecified abdominal pain (2) Bloating: Code(s): R14.0 - Abdominal distension (gaseous) (3) Family history- stomach cancer: Code(s): Z80.0 - Family history of malignant neoplasm of digestive organs Plan Ddx include GERD, PUD, gastritis, duodenitis, SIBO, functional bloating. H pylori negative on labs. Plan: - Switch back to nexium 20 - Add simethicone TID - EGD to be booked as previously discussed Medications: New esomeprazole magnesium 20 mg PO DAILY 30 caps 2RF simethicone (Gas Relief (simethicone)) 125 mg PO TID-QID PRN 90 caps 1RF abdominal distention Discontinued dicyclomine Discontinued Reason: Doctor's Order 20 mg PO TID PRN 90 tabs 3RF abdominal pain omeprazole Discontinued Reason: Doctor's Order 20 mg PO DAILY 90 caps 3RF Coding Level of Care Code Est Pt Level 4 (80336) Diagnoses Abdominal pain R10.9 Bloating R14.0 Family history- stomach cancer Z80.0
[2023-05-23 13:47] VITALS: BP 144/66; PULSE 77; BMI 33.5
== END 2023-05-23 15:48 | disposition home or self-care (01) ==
PROVIDERS: PCP Internal Medicine; Visit Provider Internal Medicine
DX: R10.9 Unspecified abdominal pain (principal); R14.0 Abdominal distension (gaseous); Z80.0 Family history of malignant neoplasm of digestive organs
CPT/HCPCS: 99214

== ENCOUNTER → 2023-05-23 13:28 | Outpatient (BNVA) | payer OTHER, SELFPAY | PROVIDERS: PCP Internal Medicine; Visit Provider Internal Medicine | DX: R74.8 Abnormal levels of other serum enzymes (principal); R10.9 Unspecified abdominal pain; R14.0 Abdominal distension (gaseous); Z80.0 Family history of malignant neoplasm of digestive organs | CPT/HCPCS: 99212 ==

== ENCOUNTER 2023-08-08 14:02 | Outpatient (AMB) | payer OTHER, SELFPAY ==
--- NOTE | 2023-08-08 14:04 | A.OFFVIS_ITS ---
Intake Visit Reasons: 3m follow up Intake Note: Patient presents today via phone for a follow-up on mixed incontinence: Meds- Vitamin B6, Terazosin Allergies to Antibiotic- No Known Allergies Blood Thinner- None Small Wind Energy Installer Required: No Accompanied by: Self / Same As Patient Allergies No Known Allergies [No Known Allergies*] Allergy (Verified 05/23/23 13:49) Medication List - Last Reconciled 08/08/23 by Talon Liz MD albuterol sulfate 90 mcg/actuation (Ventolin HFA) inhalation cholecalciferol (vitamin D3) 25 mcg PO DAILY esomeprazole magnesium 20 mg PO DAILY 90 days estradiol 0.01%(0.1mg/gram) pea-sized to urethra daily; 30 days ipratropium bromide intranasal lorazepam mg PO methimazole 10 mg PO DAILY olmesartan 20 mg PO DAILY pyridoxine (vitamin B6) 50 mg PO DAILY 90 days rosuvastatin 5 mg PO DAILY simethicone (Gas Relief (simethicone)) 125 mg PO TID-QID PRN sodium chloride 5% ophthalmic (eye) BEDTIME tadalafil 5 mg PO DAILY 90 days zolpidem 5 mg PO BEDTIME PRN HPI Comments Details: Bonita BLAIR is a very pleasant female. She is a patient of Dr Kirby. She is seen for the following urologic conditions. - nephrolithiasis - overactive bladder - failed Myrbetriq - urethral caruncle Telemedicine Evaluation 15 min Consultation Hemp 4 [place] Radha Video attempted Stable with topical estrogen Would like refill Minimal benefit from tadalafil or terazosin for bladder stabilization [place] translation provided in office by qualified medical laboratory technician Overactive bladder Previously failed Myrbetriq, terazosin, tadalafil Six-month follow-up renal ultrasound Nephrolithiasis/Urolithiasis: Urolithiasis was diagnosed 2017. The patient previously had kidney stones whose composition w unknown. 24 Hour urine evaluation 12/20 , High oxalate > 30mg. Prior treatment(s) include observation 12/20 bilateral ESWL. Prior imaging includes 10/20 , a renal ultrasound, showing radiodense stone(s) 5mm x 2 on right, 5mm x1 on left 12/20 , a KUB x-ray, ? small right stone 06/21 , a renal ultrasound, showing no evidence of stones 05/22 , a renal ultrasound, showing no evidence of stones. - 07/23 renal ultrasound no evidence of stones - 07/25 renal ultrasound no evidence of stones Hydronephrosis none. Current therapeutic plan will be occasional surveillance Urethral caruncle Cystoscopy 11/25 [facility] Medical History Multinodular thyroid Annual physical exam Normal Pap smear Anxiety Hyperglycemia HTN (hypertension) Osteopenia Nephrolithiasis Atypical hyperplasia of breast Depression Migraine headache Chronic GERD Hyperlipidemia Surgical History H/O colonoscopy History of esophagogastroduodenoscopy (EGD) Status post breast reduction History of hysterectomy Hx of cholecystectomy Family History Father Cancer Mother No problems noted. Social History Housing: Apartment Patient Tobacco Use Status: Never used Tobacco e-Cigarette/Vaping Use: Never Used Second Hand Smoke Exposure: No Current occupational status: unemployed Current occupational exposures/hazards: No Cognitive needs: No Hearing needs: No Vision needs: Yes Review of Systems Const All systems reviewed & are unremarkable except as noted in HPI and below Reports no additional complaints Resp Reports no additional complaints GI Reports no additional complaints Reports as per HPI Musc Reports no additional complaints Physical Exam Telemedicine evaluation Appropriate responses Regular breathing rate and rhythm HEENT Head: Yes normal to inspection Ears: hearing grossly normal bilaterally Eyes General: appearance normal, both eyes and all related structures Neck Neck: Yes normal visual inspection Chest Chest palpation & inspection: normal inspection of the chest Resp Effort & Inspection: normal respiratory effort and able to speak in complete sentences Telehealth Telehealth Telehealth Platform: [facility] Location of provider rendering services: practice address Location of patient: address on file Patient Identification confirmed using: Name, : Yes Telehealth method: video Patient verbally consented to treatment: Yes Patient verbally consented to billing insurance company: Yes Patient informed of any privacy concerns related to visit: Yes Minutes spent on Phone/Video with Pt.: 15 Assessment & Plan Assessment & Plan (1) Overactive bladder: Code(s): N32.81 - Overactive bladder Category: Medical (2) Nephrolithiasis: Comment: asymptomatic Code(s): N20.0 - Calculus of kidney Category: Medical Plan Six-month follow-up office Orders: Orders US renal BI 6 Months N20.0 - Calculus of kidney Medications: Refilled estradiol 0.01%(0.1mg/gram) pea-sized to urethra daily; 42.5 grams 2RF 30 days N30.20 - Other chronic cystitis without hematuria, N36.2 - Urethral caruncle pyridoxine (vitamin B6) 50 mg PO DAILY 90 tabs 3RF 90 days N20.0 - Calculus of kidney Patient Instructions: Imaging studies, laboratory and physical exam results were discussed and re viewed in detail. No major barriers to patient understanding were identified. An opportunity to ask questions regarding the treatment plan was provided. All questions were answered. The patient expressed understanding and agreement with the above treatment plan. The patient is aware they should contact our office by phone for worsening of their current condition or the appearance of new urologic symptoms. Compliance is encouraged with any medications and followup testing that is ordered. It is a privilege to participate in the urologic care of your patient. If you have any questions or concerns regarding treatment for the above conditions, or other urologic issues, please do not hesitate to contact me. The office telephone contact is [phone]. This note is constructed using voice recognition software. While every effort has been made to ensure accuracy satellite television installer errors may have been included. Yours sincerely, Dr Talon Liz MD, [facility] - Urology Providers of Expert, Compassionate Care for the Genitourinary System Coding Level of Care Code Tele Est Pt Level 3 (09612) Diagnoses Overactive bladder N32.81 Nephrolithiasis N20.0
== END 2023-08-08 14:51 | disposition home or self-care (01) ==
LOC: HO.HUSH 14:02
PROVIDERS: PCP Internal Medicine; Visit Provider Urology
DX: N32.81 Overactive bladder (principal); N20.0 Calculus of kidney
CPT/HCPCS: 99213

== ENCOUNTER → 2023-08-08 14:02 | Outpatient (BNVA) | payer OTHER, SELFPAY | PROVIDERS: PCP Internal Medicine; Visit Provider Urology ==

== ENCOUNTER 2023-09-12 07:54 | Outpatient (AMB) | payer OTHER, SELFPAY ==
[2023-09-12 07:55] VITALS: BP 112/74; PULSE 80; O2SAT 97; BMI 33.2
--- NOTE | 2023-09-12 07:55 | MHC.PC.OV ---
Vital Signs 09/12/23 07:55 Height 5 ft 7 in Weight 212 lb BMI 33.2 BP 112/74 Blood Pressure Location Lt brachial Position Sitting Pulse 80 Pulse Source Pulse Oximeter Pulse Oximetry (%) 97 Oxygen Delivery Method Room Air Intake Visit Reasons: 6 Month follow up Intake Note: Pt is here today for 6 months follow up visit. Allergies No Known Allergies [No Known Allergies*] Allergy (Verified 09/12/23 07:57) Medication List - Last Reconciled 09/12/23 by Zaida Kirby MD albuterol sulfate 90 mcg/actuation (Ventolin HFA) inhalation cholecalciferol (vitamin D3) 25 mcg PO DAILY esomeprazole magnesium 20 mg PO DAILY 90 days estradiol 0.01%(0.1mg/gram) pea-sized to urethra daily; 30 days ipratropium bromide intranasal lorazepam mg PO methimazole 10 mg PO DAILY olmesartan 20 mg PO DAILY pyridoxine (vitamin B6) 50 mg PO DAILY 90 days rosuvastatin 5 mg PO DAILY simethicone (Gas Relief (simethicone)) 125 mg PO TID-QID PRN sodium chloride 5% ophthalmic (eye) BEDTIME zolpidem 5 mg PO BEDTIME PRN Tobacco use date assessed: 09/12/23 Dental Screening Dental Screen Date: 03/15/23 HPI 6 Month follow up HPI Details Patient presents for the follow-up on hypertension hyperlipidemia hypothyroidism controlled on methimazole and patient follows up with [facility] Medical History Multinodular thyroid Annual physical exam Normal Pap smear Anxiety Hyperglycemia HTN (hypertension) Osteopenia Nephrolithiasis Atypical hyperplasia of breast Depression Migraine headache Chronic GERD Hyperlipidemia Surgical History H/O colonoscopy History of esophagogastroduodenoscopy (EGD) Status post breast reduction History of hysterectomy Hx of cholecystectomy Family History Father Cancer Mother No problems noted. Social History Housing: Apartment Patient Tobacco Use Status: Never used Tobacco e-Cigarette/Vaping Use: Never Used Second Hand Smoke Exposure: No service: No Current occupational status: unemployed Current occupational exposures/hazards: No Cognitive needs: No Hearing needs: No Vision needs: Yes Questionnaire Thrive Questionnaire Date Thrive assessed: 03/15/23 DEBORAH-7 AMB Questionnaire DEBORAH-7 Date DEBORAH - 7 assessed: 03/15/23 Source: Developed by Drs. Po Selby, Carla Ybarra, Maxwell Headley and colleagues, with an educational austin from [employer]. Review of Systems Const All systems reviewed & are unremarkable except as noted in HPI and below Eyes Reports no additional complaints Card Reports no additional complaints Resp Reports no additional complaints GI Reports no additional complaints Reports no additional complaints Physical exam (Primary Care) Vital Signs: Last Vital Signs Pulse 80 09/12/23 07:55 BP 112/74 09/12/23 07:55 Pulse Ox 97 09/12/23 07:55 Oxygen Delivery Method Room Air 09/12/23 07:55 BMI result Body Mass Index 33.2 Tobacco/Smoking Status: Tobacco use Status Tobacco use date assessed 09/12/23 09/12/23 08:14 Patient Tobacco Use Status Never used Tobacco 09/12/23 08:14 e-Cigarette/Vaping Use Never Used 09/12/23 07:55 Thrive Assessment: Date of Thrive Assessment Date Thrive assessed 03/15/23 09/12/23 07:55 Const General: no acute distress HENMT Head: Yes normal to inspection Ears: hearing grossly normal bilaterally Mouth: Normal oral and palatal mucosa present Eyes General: appearance normal, both eyes and all related structures Resp Effort & Inspection: normal respiratory effort Auscultation: clear to auscultation bilaterally Cardio Rhythm: regular rhythm Heart sounds: S1 normal heart sound present and S2 normal heart sound present GI Inspection: Yes normal to inspection Palpation (GI): Soft to palpation Assessment and Plan Assessment & Plan (1) Hyperlipidemia: Code(s): E78.5 - Hyperlipidemia, unspecified Plan: Continue statin (2) Nephrolithiasis: Comment: asymptomatic, follow-up with urology Code(s): N20.0 - Calculus of kidney (3) Hyperglycemia: Code(s): R73.9 - Hyperglycemia, unspecified Plan: Continue ADA diet increase exercise and weight loss discussed with the patient (4) Hyperthyroidism: Comment: Follow-up with [facility] Endocrinology Code(s): E05.90 - Thyrotoxicosis, unspecified without thyrotoxic crisis or storm Plan: Continue methimazole follow-up with [facility] endocrinology (5) HTN (hypertension): Comment: BP goal less than 130/80 Code(s): I10 - Essential (primary) hypertension Plan: Continue olmesartan Orders: Orders Complete Blood Count Auto Diff 6 Months E0. - Thyrotoxicosis, unspecified without thyrotoxic crisis or storm, E78.5 - Hyperlipidemia, unspecified, N20.0 - Calculus of kidney, R73.9 - Hyperglycemia, unspecified Comprehensive [place]. Panel Fast 6 Months E0. - Thyrotoxicosis, unspecified without thyrotoxic crisis or storm, E78.5 - Hyperlipidemia, unspecified, N20.0 - Calculus of kidney, R73.9 - Hyperglycemia, unspecified Lipid Panel 6 Months E0. - Thyrotoxicosis, unspecified without thyrotoxic crisis or storm, E78.5 - Hyperlipidemia, unspecified, N20.0 - Calculus of kidney, R73.9 - Hyperglycemia, unspecified Hemoglobin A1c 6 Months E0. - Thyrotoxicosis, unspecified without thyrotoxic crisis or storm, E78.5 - Hyperlipidemia, unspecified, N20.0 - Calculus of kidney, R73.9 - Hyperglycemia, unspecified Medications: Discontinued tadalafil Bladder stability Discontinued Reason: Doctor's Order 5 mg PO DAILY 90 days 90 tabs 0RF bladder stability N32.81 - Overactive bladder Coding Level of Care Code Est Pt Level 4 (84162) Complex EM visit Add On G2211 Diagnoses Hyperlipidemia E78.5 Nephrolithiasis N20.0 Hyperglycemia R73.9 Hyperthyroidism E0 HTN (hypertension) I10
== END 2023-09-12 09:21 | disposition home or self-care (01) ==
PROVIDERS: PCP Internal Medicine; Visit Provider Internal Medicine
DX: E78.5 Hyperlipidemia, unspecified (principal); N20.0 Calculus of kidney; R73.9 Hyperglycemia, unspecified; E05.90 Thyrotoxicosis, unspecified without thyrotoxic crisis or storm; I10 Essential (primary) hypertension
CPT/HCPCS: 99214; G2211

== ENCOUNTER 2023-10-16 10:02 | Outpatient (AMB) | payer OTHER, SELFPAY ==
--- NOTE | 2023-10-16 10:06 | MHC.OFFWIV ---
Intake Vital Signs 10/16/23 10:07 10/16/23 10:40 10/16/23 10:40 10/16/23 10:41 Height 5 ft 7 in Weight 212 lb BMI 33.2 BP 114/80 122/76 110/64 108/64 Blood Pressure Location Rt brachial Lt brachial Lt brachial Lt brachial Position Sitting Sitting Supine Standing Pulse 76 82 75 84 Pulse Source Pulse Oximeter Pulse Oximeter Pulse Oximeter Pulse Oximeter Temp 98.4 F Temp Source Oral Pulse Oximetry (%) 98 97 97 97 Oxygen Delivery Method Room Air Room Air Room Air Room Air Intake Visit Reasons: EP- having dizziness Intake Note: pt c/o dizziness. Started yesterday Patient Tobacco Use Status: Never used Tobacco Allergies No Known Allergies [No Known Allergies*] Allergy (Verified 10/16/23 10:06) Do you need a note to return to daycare/school/sports/work: No HPI HPI Comments History of Present Illness Details Patient is a 63-year-old Kinyar[place]anda-speaking female who is here with her who is interpreting for her. They state that she has been given getting dizzy for the last 2 days. She states it is worse at night when she goes to get up, she feels off balance. She also says she has a feeling of warmth when these episodes happen but not actual sweating and he usually self resolves and 5 minutes. She denies any new medications, she states she is taking all of her medications, as prescribed. She denies any changes in her hearing or vision, ear pain, nausea, sweating, chest discomfort or palpitations, shortness of breath, sinus pain, cough, congestion or fevers. She denies actually losing consciousness with any of these episodes. She denies any changes in her eating or drinking. [facility] Medical History Multinodular thyroid Annual physical exam Normal Pap smear Anxiety Hyperglycemia HTN (hypertension) Osteopenia Nephrolithiasis Atypical hyperplasia of breast Depression Migraine headache Chronic GERD Hyperlipidemia Surgical History H/O colonoscopy History of esophagogastroduodenoscopy (EGD) Status post breast reduction History of hysterectomy Hx of cholecystectomy Family History Father Cancer Mother No problems noted. Social History Housing: Apartment Patient Tobacco Use Status: Never used Tobacco e-Cigarette/Vaping Use: Never Used Second Hand Smoke Exposure: No service: No Current occupational status: unemployed Current occupational exposures/hazards: No Cognitive needs: No Hearing needs: No Vision needs: Yes Review of Systems Const All systems reviewed & are unremarkable except as noted in HPI and below Physical Exam Vital Signs: Last Vital Signs Temp 98.4 F 10/16/23 10:07 Pulse 84 10/16/23 10:41 BP 108/64 10/16/23 10:41 Pulse Ox 97 10/16/23 10:41 Oxygen Delivery Method Room Air 10/16/23 10:41 BMI result Body Mass Index 33.2 Const General: cooperative, healthy appearing, comfortable, no acute distress and well developed Orientation/consciousness: patient oriented x3 Limitations: no limitations HEENT Head: Yes normal to inspection Ears: hearing grossly normal bilaterally, external ears normal, TM's normal bilaterally and Abnormal EAC present General nose exam: Normal external nose present Face and sinus: Yes normal facial exam Throat: Yes posterior oropharynx normal, Yes tonsils normal and Yes uvula midline Eyes General: appearance normal, both eyes and all related structures EOM: No Nystagmus present Neck Neck: Yes normal visual inspection and Yes full ROM Resp Effort & Inspection: normal respiratory effort and able to speak in complete sentences Auscultation: clear to auscultation bilaterally Cardio Rate: regular rate Rhythm: regular rhythm Heart sounds: normal S1 and S2 GI Inspection: Yes normal to inspection Palpation (GI): Soft to palpation and nontender Skin General skin exam: no rashes or lesions noted Neuro General: patient oriented x3 Cranial nerves: No Nystagmus present Extrem General: Yes normal to inspection Office Procedures EKG [id number], Complete Assessment & Plan Assessment & Plan (1) Dizziness of unknown etiology: Code(s): R42 - Dizziness and giddiness Plan: Orthostatics performed in office show SBP dropped 14 points going from sitting to standing, not quite the threshold for orthostatic hypotension. EKG was NSR @78BPM, no acute changes. Recommended she start an allergy pill every day and increase her fluid intake. If her symptoms continue, she should follow up with her primary care physician. Gave red flag warning signs and when to call 911. Plan See above Coding Level of Care Code Est Pt Level 4 (61591) Diagnoses Dizziness of unknown etiology R42 CPT Codes EKG - CPT: 88513-[id number], Complete ([id number])
[2023-10-16 10:07] VITALS: BP 114/80; PULSE 76; TEMP 36.9; O2SAT 98; BMI 33.2
[2023-10-16 10:40] VITALS: BP 110/64; BP 122/76; PULSE 75; PULSE 82; O2SAT 97
[2023-10-16 10:41] VITALS: BP 108/64; PULSE 84; O2SAT 97
== END 2023-10-16 11:04 | disposition home or self-care (01) ==
PROVIDERS: PCP Internal Medicine; Visit Provider Physician Assistant
DX: R42 Dizziness and giddiness (principal)
CPT/HCPCS: 93000; 99214

== ENCOUNTER 2023-11-30 10:34 | Outpatient (AMB) | payer OTHER, SELFPAY ==
--- NOTE | 2023-11-30 10:44 | MHC.OFFVIS ---
Intake Visit Reasons: [facility] ER follow up Intake Note: Patient is present for [facility] ER f/u Urology Medication:tamsulosin, vitamin b6 Antibiotic Allergy:none Blood Thinner:none Adult Neuropsychologist Required: No Allergies No Known Allergies [No Known Allergies*] Allergy (Verified 11/30/23 10:46) Medication List - Last Reconciled 11/30/23 by Talon Liz MD albuterol sulfate 90 mcg/actuation (Ventolin HFA) inhalation cholecalciferol (vitamin D3) 25 mcg PO DAILY esomeprazole magnesium 20 mg PO DAILY 90 days estradiol 0.01%(0.1mg/gram) pea-sized to urethra daily; 30 days ipratropium bromide intranasal lorazepam mg PO methimazole 10 mg PO DAILY olmesartan 20 mg PO DAILY pyridoxine (vitamin B6) 50 mg PO DAILY 90 days rosuvastatin 5 mg PO DAILY simethicone (Gas Relief (simethicone)) 125 mg PO TID-QID PRN sodium chloride 5% ophthalmic (eye) BEDTIME tamsulosin 0.4 mg PO BEDTIME 7 days zolpidem 5 mg PO BEDTIME PRN HPI Comments Details: Bonita BLAIR is a very pleasant female. She is a patient of Dr Kirby. She is seen for the following urologic conditions. - nephrolithiasis - overactive bladder - failed Myrbetriq - urethral caruncle Malay translation provided in office by qualified medical library assistant Accompanied by Recent ER evaluation at [facility] CT scan done with small stone distal right side Discussed stone formation Had been on vitamin B6 Prior 24 hour evaluation high oxalate in 2018 We will repeat current Uro risk Overactive bladder Previously failed Myrbetriq, terazosin, tadalafil Nephrolithiasis/Urolithiasis: Urolithiasis was diagnosed 2018. The patient previously had kidney stones whose composition w unknown. 24 Hour urine evaluation 12/20 , High oxalate > 30mg. Prior treatment(s) include observation 12/20 bilateral ESWL. Prior imaging includes 10/20 , a renal ultrasound, showing radiodense stone(s) 5mm x 2 on right, 5mm x1 on left 12/20 , a KUB x-ray, ? small right stone 06/21 , a renal ultrasound, showing no evidence of stones 05/22 , a renal ultrasound, showing no evidence of stones. - 07/23 renal ultrasound no evidence of stones - 07/25 renal ultrasound no evidence of stones - 10/26 CT scan [facility] Emergency room right 3 mm UVJ stone, right 3 mm mid pole stone Hydronephrosis none. Current therapeutic plan will be occasional surveillance Urethral caruncle Cystoscopy 11/25 Responds well to topical estrogen Minimal benefit from tadalafil or terazosin for bladder stabilization PFSH Medical History Multinodular thyroid Annual physical exam Normal Pap smear Anxiety Hyperglycemia HTN (hypertension) Osteopenia Nephrolithiasis Atypical hyperplasia of breast Depression Migraine headache Chronic GERD Hyperlipidemia Surgical History H/O colonoscopy History of esophagogastroduodenoscopy (EGD) Status post breast reduction History of hysterectomy Hx of cholecystectomy Family History Father Cancer Mother No problems noted. Social History Housing: Apartment Patient Tobacco Use Status: Never used Tobacco e-Cigarette/Vaping Use: Never Used Second Hand Smoke Exposure: No service: No Current occupational status: unemployed Current occupational exposures/hazards: No Cognitive needs: No Hearing needs: No Vision needs: Yes Review of Systems Const Denies chills and Denies fever(s) Card Reports no additional complaints and Denies syncope Resp Denies cough GI Denies abdominal pain and Denies heartburn Reports as per HPI and Denies change in libido Neuro Denies syncope Psych Denies change in libido Endo Denies change in libido Physical Exam Const General: cooperative, healthy appearing, comfortable and no acute distress Orientation/consciousness: patient oriented x3 HEENT Face and sinus: Yes normal facial exam Mouth: moist mucous membranes Neck Neck: Yes normal visual inspection, Yes full ROM and Yes trachea midline Chest Chest palpation & inspection: normal inspection of the chest Resp Effort & Inspection: normal respiratory effort, able to speak in complete sentences and no respiratory distress GI Inspection: Yes normal to inspection Back/Spine/Pelvis Cervical Spine: normal cervical lordosis Thoracic/Lumbar Spine: thoracic and lumbar spine normal to inspection Skin General skin exam: no rashes or lesions noted Neuro General: patient oriented x3, gait normal, tone normal and moves all extremities Extrem General: Yes normal to inspection and Yes capillary refill normal Results AMB Urinalysis, Automated UA Leukoctes 0 Carl/uL Last Edit by SILVINO Sheldon on 11/30/23 11:03 UA Nitrite Negative Last Edit by Ryan Galvan CCM on 11/30/23 11:03 UA Urobilinogen 0.2 mg/dL Last Edit by Ryan Galvan CCM on 11/30/23 11:03 UA Protein 0 mg/dL Last Edit by Ryan Galvan [facility] on 11/30/23 11:03 UA pH 6.0 Last Edit by Ryan Galvan [facility] on 11/30/23 11:03 UA Blood 0 Imer/uL Last Edit by Ryan Galvan [facility] on 11/30/23 11:03 UA Specific [place] 1.015 Last Edit by Ryan Galvan [facility]CM on 11/30/23 11:03 UA Ketone Negative Last Edit by Ryan Galvan [facility] on 11/30/23 11:03 UA Bilirubin 0 mg/dL Last Edit by Ryan Galvan [facility] on 11/30/23 11:03 UA Glucose 0 mg/dL Last Edit by Ryan Galvan [facility] on 11/30/23 11:03 Results Reviewed Results Reviewed: Laboratory Last Values Urine pH (Auto) 6.0 11/30/23 11:03 Specific [place] (Auto) 1.015 11/30/23 11:03 Urine Protein (Auto) 0 mg/dL 11/30/23 11:03 Glucose (UA)(Auto) 0 mg/dL 11/30/23 11:03 Urine Ketones (Auto) Negative 11/30/23 11:03 Urine Blood (Auto) 0 Imer/uL 11/30/23 11:03 Urine Nitrite (Auto) Negative 11/30/23 11:03 Urine Bilirubin (Auto) 0 mg/dL 11/30/23 11:03 Urine Urobilinogen (Auto) 0.2 mg/dL 11/30/23 11:03 Leukocyte Esterase (Auto) 0 Carl/uL 11/30/23 11:03 Assessment & Plan Assessment & Plan (1) Overactive bladder: Code(s): N32.81 - Overactive bladder Category: Medical (2) Nephrolithiasis: Comment: asymptomatic, follow-up with urology Code(s): N20.0 - Calculus of kidney Category: Medical Plan Uro risk Orders: Orders AMB Urinalysis Automated Today Z13.9 - Encounter for screening, unspecified URORISK Today N20.0 - Calculus of kidney Patient Instructions: Imaging studies, laboratory and physical exam results were discussed and reviewed in detail. No major barriers to patient understanding were identified. An opportunity to ask questions regarding the treatment plan was provided. All questions were answered. The patient expressed understanding and agreement with the above treatment plan. The patient is aware they should contact our office by phone for worsening of their current condition or the appearance of new urologic symptoms. Compliance is encouraged with any medications and followup testing that is ordered. It is a privilege to participate in the urologic care of your patient. If you have any questions or concerns regarding treatment for the above conditions, or other urologic issues, please do not hesitate to contact me. The office telephone contact is [phone]. This note is constructed using voice recognition software. While every effort has been made to ensure accuracy differential repairer errors may have been included. Yours sincerely, Dr Talon Liz MD, [facility] - Urology Providers of Expert, Compassionate Care for the Genitourinary System Coding Level of Care Code Est Pt Level 4 (77986) Diagnoses Overactive bladder N32.81 Nephrolithiasis N20.0
== END 2023-11-30 11:30 | disposition home or self-care (01) ==
PROVIDERS: PCP Internal Medicine; Visit Provider Urology
DX: N32.81 Overactive bladder (principal); N20.0 Calculus of kidney; Z13.9 Encounter for screening, unspecified
CPT/HCPCS: 99214

== ENCOUNTER → 2023-11-30 10:34 | Outpatient (BNVA) | payer OTHER, SELFPAY | PROVIDERS: PCP Internal Medicine; Visit Provider Urology | DX: N20.0 Calculus of kidney (principal); N32.81 Overactive bladder | CPT/HCPCS: 81003; 99212 ==

== ENCOUNTER 2024-02-07 11:22 | Outpatient (REF) | payer OTHER, SELFPAY | END 2024-02-07 11:23 | disposition home or self-care (01) | LOC: HO.HMGCX 11:22 | PROVIDERS: PCP Internal Medicine; Visit Provider Urology | DX: N20.0 Calculus of kidney (principal) | CPT/HCPCS: 76775 ==

== ENCOUNTER 2024-03-04 06:17 | Day surgery (SDC) | payer OTHER, SELFPAY ==
[2024-03-04] MEDS: Lactated Ringers 1,000 ML 80 ML IVCONT (06:40)
[2024-03-04 07:04] VITALS: BP 162/86; PULSE 88; RESP 18; TEMP 36.8; O2SAT 98
[2024-03-04 07:05] VITALS: BMI 34.0
--- NOTE | 2024-03-04 07:05 | P.CONAN_ITS ---
[facility] Active Problems Active Problems: All Active Problems Dizziness of unknown etiology (Acute) Bloating (Acute) Abdominal pain (Acute) Overactive bladder (Acute) Postmenopausal (Acute) Feeling of incomplete bladder emptying (Acute) Urethral caruncle (Acute) High serum bone-specific alkaline phosphatase (Acute) Family history- stomach cancer (Acute) Elevated alkaline phosphatase level (Acute) Mixed incontinence (Acute) Otitis media (Acute) Elevated LFTs (Acute) Weakness (Acute) Sinusitis (Acute) Multinodular thyroid (Acute) UTI (urinary tract infection), bacterial (Acute) IBS (irritable bowel syndrome) (Acute) Hyperthyroidism (Acute) Cough (Acute) Frontal sinusitis (Acute) Chills (Acute) Annual physical exam (Acute) Nephrolithiasis (Acute) Allergic rhinitis (Acute) Allergic reaction (Acute) Acute sinusitis (Acute) Normal Pap smear (Acute) Anxiety (Acute) Hyperglycemia (Acute) Hyperlipidemia (Acute) HTN (hypertension) (Acute) Viral syndrome (Acute) Thumb injury (Acute) Past Medical History Medical History Multinodular thyroid Annual physical exam Normal Pap smear Anxiety Hyperglycemia HTN (hypertension) Osteopenia Nephrolithiasis Atypical hyperplasia of breast Depression Migraine headache Chronic GERD Hyperlipidemia Functional capacity: independent ambulation Patient : No Family History Family History Father Cancer Mother No problems noted. Family history of problems with anesthesia: No Surgical History Surgical History H/O colonoscopy History of esophagogastroduodenoscopy (EGD) Status post breast reduction History of hysterectomy Hx of cholecystectomy History of Problems with Anesthesia: No Social History Social History Housing: Apartment Patient Tobacco Use Status: Never used Tobacco e-Cigarette/Vaping Use: Never Used Second Hand Smoke Exposure: No Advance Directives: No Advance Directives Information Provided: Yes service: No Current occupational status: unemployed Current occupational exposures/hazards: No Cognitive needs: No Hearing needs: No Vision needs: Yes Meds Allergies Allergy/AdvReac Type Severity Reaction Status Date / Time No Known Allergies Allergy Verified 11/30/23 10:46 [No Known Allergies*] Active Medications: Current Medications Lactated Ringer's (Lr) 1,000 mls @ 80 mls/hr IVCONT .[id number] KEV Last Admin: 03/04/24 06:40 Dose: 80 mls/hr Home Medications ?Medication ?Instructions ?Recorded ?Confirmed ?Last Taken ?Type lorazepam 1 mg tablet mg PO 01/08/20 11/30/23 Unknown History methimazole 10 mg tablet 10 mg PO DAILY 08/10/22 11/30/23 Unknown History ipratropium bromide 21 mcg (0.03 intranasal 08/11/22 11/30/23 Unknown History %) nasal spray sodium chloride 5 % eye ointment ophthalmic (eye) BEDTIME 08/11/22 11/30/23 Unknown History albuterol sulfate 90 mcg/actuation inhalation 05/23/23 11/30/23 Unknown History aerosol inhaler (Ventolin HFA) zolpidem 5 mg tablet 5 mg PO BEDTIME PRN 05/23/23 11/30/23 Unknown History Exam Height,Weight and Vital Signs: Last Vital Signs Temp 98.2 F 03/04/24 07:04 Pulse 88 03/04/24 07:04 Resp 18 03/04/24 07:04 BP 162/86 H 03/04/24 07:04 Pulse Ox 98 03/04/24 07:04 O2 Del Method Room Air 03/04/24 07:04 Airway Mallampati Class: III TM Dist: >3cm Neck ROM: Full Heart: RRR Lungs: CTA Assessment and Plan Assessment Anesthesia Assessment: Anesthesia Plan Discussed and Chart Reviewed Final Anesthetic Review Family History of Problems with Anesthesia: No History of Problems with Anesthesia: No ASA Class: III Final Preanesthetic Review: Meds/Allgs Chart Reviewed, Consent Obtained/Reviewed and Anes Risks/Benef Reviewed Patient Risk: Intermediate Procedure Risk: Low Anesthetic Plan Anesthetic Plan: MAC: Disposition: Standard PACU
--- NOTE | 2024-03-04 07:58 | MHC.SHP ---
Pre-Procedural Eval Section A - 24 Hr Update-Section A only Date of Service: 03/04/24 Section B - Complete if H&P > 30 days Chief Complaint: Abdominal distension,pain, fam hx of gastric ca Details of Present Illness: Multinodular thyroid Annual physical exam Normal Pap smear Anxiety Hyperglycemia HTN (hypertension) Osteopenia Nephrolithiasis Atypical hyperplasia of breast Depression Migraine headache Chronic GERD Hyperlipidemia Present Medications: see Short Stay Collaborative assessment Allergies: Allergies Allergy/AdvReac Type Severity Reaction Status Date / Time No Known Allergies Allergy Verified 03/04/24 07:08 [No Known Allergies*] Review of Systems Review of Systems Comment: Ten point ROS negative Exam Exam Comment: Gen appear: No acute distress HEENT: no icterus Chest: No overt resp distress Abd: soft, nontender, nondistended Psych: Stable affect, answering questions appropriately Neuro: A/Ox3 noted to move all extremities spontaneously Ext: no peripheral edema Plan Diagnosis/Plan: Unchanged I have reviewed the history and physical and performed a pertinent physical examination on my patient. No changes have occurred unless specified. Time Spent With Patient Time: Total time managing care of this patient today ____ minutes.
--- NOTE | 2024-03-04 08:10 | P.CONAN_ITS ---
[facility] Active Problems Active Problems: All Active Problems Dizziness of unknown etiology (Acute) Bloating (Acute) Abdominal pain (Acute) Overactive bladder (Acute) Postmenopausal (Acute) Feeling of incomplete bladder emptying (Acute) Urethral caruncle (Acute) High serum bone-specific alkaline phosphatase (Acute) Family history- stomach cancer (Acute) Elevated alkaline phosphatase level (Acute) Mixed incontinence (Acute) Otitis media (Acute) Elevated LFTs (Acute) Weakness (Acute) Sinusitis (Acute) Multinodular thyroid (Acute) UTI (urinary tract infection), bacterial (Acute) IBS (irritable bowel syndrome) (Acute) Hyperthyroidism (Acute) Cough (Acute) Frontal sinusitis (Acute) Chills (Acute) Annual physical exam (Acute) Nephrolithiasis (Acute) Allergic rhinitis (Acute) Allergic reaction (Acute) Acute sinusitis (Acute) Normal Pap smear (Acute) Anxiety (Acute) Hyperglycemia (Acute) Hyperlipidemia (Acute) HTN (hypertension) (Acute) Viral syndrome (Acute) Thumb injury (Acute) Past Medical History Medical History Multinodular thyroid Annual physical exam Normal Pap smear Anxiety Hyperglycemia HTN (hypertension) Osteopenia Nephrolithiasis Atypical hyperplasia of breast Depression Migraine headache Chronic GERD Hyperlipidemia Functional capacity: independent ambulation Family History Family History Father Cancer Mother No problems noted. Family history of problems with anesthesia: No Surgical History Surgical History H/O colonoscopy History of esophagogastroduodenoscopy (EGD) Status post breast reduction History of hysterectomy Hx of cholecystectomy History of Problems with Anesthesia: No Social History Social History Household Members Other:: townhouse Housing: Apartment Are you a primary career development coordinator to a significant other at home: No Do you presently have visiting nurse or other home services: No Patient Tobacco Use Status: Never used Tobacco e-Cigarette/Vaping Use: Never Used Second Hand Smoke Exposure: No service: No Current occupational status: unemployed Current occupational exposures/hazards: No Cognitive needs: No Hearing needs: No Vision needs: Yes Meds Allergies Allergy/AdvReac Type Severity Reaction Status Date / Time No Known Allergies Allergy Verified 03/04/24 07:08 [No Known Allergies*] Active Medications: Current Medications Lactated Ringer's (Lr) 1,000 mls @ 80 mls/hr IVCONT .[id number] KEV Last Admin: 03/04/24 06:40 Dose: 80 mls/hr Naloxone HCl (Naloxone Hcl 0.4 Mg/Ml Vial) 0.04 mg IVPUSH Q5M PRN PRN Reason: Excessive sedation or RR < 8 Home Medications ?Medication ?Instructions ?Recorded ?Confirmed ?Last Taken ?Type lorazepam 1 mg tablet mg PO 01/08/20 11/30/23 Unknown History methimazole 10 mg tablet 10 mg PO DAILY 08/10/22 03/04/24 Unknown History ipratropium bromide 21 mcg (0.03 intranasal 08/11/22 11/30/23 Unknown History %) nasal spray sodium chloride 5 % eye ointment ophthalmic (eye) BEDTIME 08/11/22 11/30/23 Unknown History albuterol sulfate 90 mcg/actuation inhalation 05/23/23 11/30/23 Unknown History aerosol inhaler (Ventolin HFA) zolpidem 5 mg tablet 5 mg PO BEDTIME PRN Insomnia 05/23/23 03/04/24 Unknown History Exam Height,Weight and Vital Signs: Height 5 ft 7 in Weight 98.43 kg Last Vital Signs Temp 98.2 F 03/04/24 07:04 Pulse 88 03/04/24 07:04 Resp 18 03/04/24 07:04 BP 162/86 H 03/04/24 07:04 Pulse Ox 98 03/04/24 07:04 O2 Del Method Room Air 03/04/24 07:04 Airway Mallampati Class: III TM Dist: >3cm Neck ROM: Full Lungs: Wheezing bl. Assessment and Plan Assessment Anesthesia Assessment: Anesthesia Plan Discussed and Chart Reviewed Final Anesthetic Review Family History of Problems with Anesthesia: No History of Problems with Anesthesia: No NPO: Yes ASA Class: III Final Preanesthetic Review: Meds/Allgs Chart Reviewed, Consent Obtained/Reviewed and Anes Risks/Benef Reviewed Patient Risk: Intermediate Procedure Risk: Low Anesthetic Plan Anesthetic Plan: MAC: Disposition: Standard PACU
--- NOTE | 2024-03-04 08:19 | P.OP_ITS ---
Operative Note Operative Note Date of Service: 03/04/24 Narrative: Procedure: Esophagogastroduodenoscopy Endoscopist: Moni James MD Indication: Abd pain. bloating Anesthesia Provider: Dr Baylee Hernandez Anesthesia Type: MAC ?? EGD Procedure:?? The procedure, indications, preparation and potential complications were reviewed with the patient, who indicated understanding and gave written informed consent to proceed. A physical exam was performed. The endoscope was introduced through the mouth, and advanced to the second part of duodenum. The mucosa was carefully examined on slow withdrawal of the endoscope. The patient tolerated the procedure well. There were no immediate complications.? ? EGD Findings:? * Esophagus:? Normal mucosa noted in the entire esophagus. The Z line was at 36 cm. * Stomach:? Solid/semi solid food was present in the stomach obscuring almost the entire lumen. This could not be suctioned out. * Duodenum:? Normal mucosa was noted in the whole of the examined duodenum. ? EGD Impressions:? * Normal esophagus * Food in stomach * Normal duodenum ?? Recommendations:?? * Procedure was rapidly completed due to food in stomach * Will get outpatient GES * Will also check for T2DM * Has fam hx of gastric ca and biopsies could not be obtained today, EGD will be rescheduled to a latter date Above has been reviewed with the patient.
[2024-03-04 08:20] VITALS: BP 135/81; PULSE 95; RESP 16; TEMP 36.4; O2SAT 96
[2024-03-04 08:35] VITALS: BP 154/97; PULSE 91; RESP 17; TEMP 36.1; O2SAT 95
[2024-03-04 08:38] LABS: MANUAL DIFF FLAG NO
[2024-03-04 08:41] LABS: Basophils Percent Auto 0.3 % (0-2); Eosinophils Absolute Auto 0.1 X10*3/uL (0.0-0.4); Eosinophils Percent Auto 1.7 % (0-4); Hematocrit 34.9 % (37.0-47.0); Hemoglobin 11.7 g/dl (12.0-16.0); Imm Gran Abs Auto 0.02 X10*3/uL (0.00-0.03); Imm Gran Pct Auto 0.3 % (0.0-0.4); Lymphocytes Absolute Auto 1.9 X10*3/uL (1.2-4.9); Lymphocytes Percent Auto 25.8 % (20-40); Mean Corpuscular HGB Conc 33.5 g/dl (31.0-35.0); Mean Corpuscular Hemoglobin 27.9 pg (27.0-33.0); Mean Corpuscular Volume 83.1 fL (80.0-98.0); Monocytes Absolute Auto 0.6 X10*3/uL (0.1-1.2); Monocytes Percent Auto 7.6 % (2-11); Neutrophils Absolute Auto 4.6 x10*3/uL (2.0-8.3); Neutrophils Percent Auto 64.3 % (45-73); Platelet Count 208 X10*3/uL (160-400); Red Cell Distribution Width 13.2 % (11.0-16.0); White Blood Count 7.2 X10*3/uL (4.8-10.8)
[2024-03-04 08:57] LABS: Estimated Average Glucose 105 mg/dL; Hemoglobin A1C 106.6783 umol/L; Hemoglobin A1c % 5.3 % (<6.0); Total Hemoglobin (HGBA1C) 3115.8485 umol/L
--- NOTE | 2024-03-04 08:59 | PC.NURSE ---
PATIENT AMBULATED DOWNSTAIRS TO HOSPITAL MAIN ENTRANCE SHE REFUSES TO TAKE AN ELEVATOR.
[2024-03-04 09:00] LABS: Alanine Aminotransferase 26 U/L (0-31); Albumin Level 3.6 g/dL (3.5-5.0); Alkaline Phosphatase 104 U/L (39-117); Anion Gap 11 (12-20); Aspartate Amino Transferase 25 U/L (5-31); Bilirubin Total 0.5 mg/dL (0.0-1.0); Blood Urea Nitrogen 14 mg/dL (9-16); Calcium 8.6 mg/dL (8.4-10.2); Carbon Dioxide 24 mmol/L (22-29); Chloride 112 mmol/L (96-108); Creatinine Clr Calc Pharmacy 84.6; Estimated Glomerular Filt Rate > 60; Glucose Random 129 mg/dL (60-115); Potassium 4.1 mmol/L (3.3-5.1); Sodium 143 mmol/L (135-145); Total Protein 6.2 g/dL (6.5-8.0)
== END 2024-03-04 09:00 | disposition home or self-care (01) ==
PROVIDERS: PCP Internal Medicine; Visit Provider Internal Medicine
PROC: 0DJ08ZZ Inspection of Upper Intestinal Tract, Via Natural or Artificial Opening Endoscopic (ICD-10-PCS; CPT 43235; principal; 2024-03-04 07:30)
DX: R10.9 Unspecified abdominal pain (principal); R14.0 Abdominal distension (gaseous); Z80.0 Family history of malignant neoplasm of digestive organs; T18.2XXA Foreign body in stomach, initial encounter; W44.F3XA Food entering into or through a natural orifice, initial encounter; I10 Essential (primary) hypertension; E78.5 Hyperlipidemia, unspecified; E04.2 Nontoxic multinodular goiter; K21.9 Gastro-esophageal reflux disease without esophagitis; R73.9 Hyperglycemia, unspecified; Z79.899 Other long term (current) drug therapy; Z90.49 Acquired absence of other specified parts of digestive tract; Z98.890 Other specified postprocedural states; Z56.0 Unemployment, unspecified
CPT/HCPCS: 43235; 36415; 80053; 83036; 85025; J2003; J2704

== ENCOUNTER → 2024-03-04 06:17 | Outpatient (BNV) | payer OTHER, SELFPAY | PROVIDERS: PCP Internal Medicine; Visit Provider Internal Medicine | DX: R10.9 Unspecified abdominal pain (principal); R14.0 Abdominal distension (gaseous); Z80.0 Family history of malignant neoplasm of digestive organs | CPT/HCPCS: 43235 ==

== ENCOUNTER 2024-03-10 09:35 | Outpatient (AMB) | payer OTHER, SELFPAY ==
--- NOTE | 2024-03-10 10:07 | MHC.PC.OV ---
Vital Signs 03/10/24 10:09 Height 5 ft 7 in Weight 211 lb BMI 33.0 BP 120/82 Blood Pressure Location Lt brachial Position Sitting Pulse 75 Pulse Source Pulse Oximeter Pulse Oximetry (%) 98 Oxygen Delivery Method Room Air Intake Visit Reasons: follow up/labs Intake Note: Pt is here today for a follow up visit on labs. Allergies No Known Allergies [No Known Allergies*] Allergy (Verified 03/10/24 10:16) Medication List - Last Reconciled 03/10/24 by Zaida Kirby MD albuterol sulfate 90 mcg/actuation (Ventolin HFA) inhalation cholecalciferol (vitamin D3) 25 mcg PO DAILY esomeprazole magnesium 20 mg PO DAILY 90 days estradiol 0.01%(0.1mg/gram) pea-sized to urethra daily; 30 days ipratropium bromide intranasal lorazepam mg PO methimazole 10 mg PO DAILY olmesartan 20 mg PO DAILY pyridoxine (vitamin B6) 50 mg PO DAILY 90 days rosuvastatin 5 mg PO DAILY simethicone (Gas Relief (simethicone)) 125 mg PO TID-QID PRN sodium chloride 5% ophthalmic (eye) BEDTIME Tobacco use date assessed: 03/10/24 Dental Screening Dental Screen Date: 03/10/24 Did you have a dental visit in the last 12 months?: Yes Did you have a dental problem in the last 6 months where you did not have access to dental care?: No Was dental information given to patient?: Patient has dentist HPI follow up/labs HPI Details Pt presents for f/u HTN, hyperlipid, hypothyroidism controlled on methimazole and follow-up with endocrinology. COUNT INCLUDES [facility] Medical History (Updated 03/10/24 @ 11:56 by Zaida Kirby MD) Multinodular thyroid Annual physical exam Normal Pap smear Anxiety Hyperglycemia HTN (hypertension) Osteopenia Nephrolithiasis Atypical hyperplasia of breast Depression Migraine headache Chronic GERD Hyperlipidemia Surgical History (Updated 03/10/24 @ 11:54 by Zaida Kirby MD) H/O colonoscopy History of esophagogastroduodenoscopy (EGD) Status post breast reduction History of hysterectomy Hx of cholecystectomy Family History Father Cancer Mother No problems noted. Social History Household Members Other:: [facility] Housing: Apartment Are you a primary career development facilitator to a significant other at home: No Do you presently have visiting nurse or other home services: No Patient Tobacco Use Status: Never used Tobacco e-Cigarette/Vaping Use: Never Used Second Hand Smoke Exposure: No service: No Current occupational status: unemployed Current occupational exposures/hazards: No Cognitive needs: No Hearing needs: No Vision needs: Yes Questionnaire PHQ-9 Over the last 2 weeks, how often have you been bothered by any of the following problems? 1. Little interest or pleasure in doing things: not at all 2. Feeling down, depressed, or hopeless: not at all 3. Trouble falling or staying asleep, or sleeping too much: not at all 4. Feeling tired or having little energy: not at all 5. Poor appetite or overeating: not at all 6. Feeling bad about yourself - or that you are a failure or have let yourself or your family down: not at all 7. Trouble concentrating on things, such as reading the newspaper or watching television: not at all 8. Moving or speaking so slowly that other people could have noticed. Or the opposite - being so fidgety or restless that you have been moving around a lot more than usual: not at all 9. Thoughts that you would be better off or of hurting yourself in some way: not at all Total score: 0 Depression Screening Interpretation: Negative Depression Screening Done: Yes 48753 - PHQ-9 Billing: Yes Source: Developed by Drs. Po Selby, Carla Ybarra, Maxwell Headley and colleagues, with an educational austin from [employer]. Thrive Questionnaire Date Thrive assessed: 03/10/24 I am a: Patient What is your living situation today?: I have a steady place to live Within the past 12 months, did the food you bought not last and you didn't have the money to get more?: Never true Within the past 12 months, did you worry whether your food would run out before you got money to buy more?: Never true Do you have trouble paying for medicines?: No Do you have trouble getting transportation to medical appointments?: No Do you have trouble paying your heating and electricity bill?: No Do you have trouble taking care of your child, family member or friend?: No Do you have trouble with day-to-day activities such as bathing, preparing meals, shopping, managing finances, etc.?: No Are you currently unemployed and looking for a job?: No Are you interested in more education?: No Please select the resources that you would like help with: None THRIVE Score: 0 AUDIT C Alcohol Use Questionnaire (AUDIT-C) 1. How often do you have a drink containing alcohol?: Never 3. How often do you have six or more drinks on one occasion?: Never Total Score: 0 DEBORAH-7 AMB Questionnaire DEBORAH-7 Date DEBORAH - 7 assessed: 03/10/24 Feeling nervous, anxious, or on edge: 0 = Not at all Not being able to stop or control worryin = Not at all Worrying too much about different things: 0 = Not at all Trouble relaxin = Not at all Being so restless that it is hard to sit still: 0 = Not at all Becoming easily annoyed or irritable: 0 = Not at all Feeling afraid as if something awful might happen: 0 = Not at all Total DEBORAH-7 score (0-4 normal; 5-9 mild; 10-14 moderate; 15-21 severe): 0 Source: Developed by Drs. Po Selby, Carla Ybarra, Maxwell Headley and colleagues, with an educational austin from [employer]. DEBORAH-7 Assessment Billing DEBORAH-7 Assessment Tool: DEBORAH-7 Assessment 28356 Review of Systems Const All systems reviewed & are unremarkable except as noted in HPI and below Eyes Reports no additional complaints ENT Reports no additional complaints Card Reports no additional complaints Resp Reports no additional complaints GI Reports no additional complaints Reports no additional complaints Physical exam (Primary Care) Vital Signs: Last Vital Signs Pulse 75 03/10/24 10:09 BP 120/82 03/10/24 10:09 Pulse Ox 98 03/10/24 10:09 Oxygen Delivery Method Room Air 03/10/24 10:09 BMI result Body Mass Index 33.0 Tobacco/Smoking Status: Tobacco use Status Tobacco use date assessed 03/10/24 03/10/24 10:16 Patient Tobacco Use Status Never used Tobacco 03/10/24 10:16 e-Cigarette/Vaping Use Never Used 03/10/24 10:07 PHQ-9: PHQ-9 Score PHQ-9: Total score 0 03/10/24 10:24 Depression Screening Interpretation: Negative Thrive Assessment: Date of Thrive Assessment Date Thrive assessed 03/10/24 03/10/24 10:24 Const General: no acute distress HENMT Head: Yes normal to inspection Throat: Yes posterior oropharynx normal Eyes General: appearance normal, both eyes and all related structures Resp Effort & Inspection: normal respiratory effort Auscultation: clear to auscultation bilaterally Cardio Rhythm: regular rhythm Heart sounds: S1 normal heart sound present and S2 normal heart sound present GI Inspection: Yes normal to inspection Palpation (GI): Soft to palpation Percussion: Yes normal to percussion Coding Level of Care Code Est Pt Level 4 (85293) Complex EM visit Add On G2211 Diagnoses Hyperglycemia R73.9 Hyperlipidemia E78.5 HTN (hypertension) I10 Hyperthyroidism E05.90 H/O colonoscopy Z98.890 Obesity E66.9 Additional Codes DEBORAH-7 Assessment Billing - DEBORAH-7 Assessment Tool: DEBORAH-7 Assessment 45313 ([id number]) PHQ-9 - 61026 - PHQ-9 Billing: Yes ([id number]) Assessment & Plan Assessment & Plan (1) Hyperglycemia: Code(s): R73.9 - Hyperglycemia, unspecified Category: Medical Plan: A1c is 5.3, continue ADA diet regular exercise weight loss discussed with the patient (2) Hyperlipidemia: Code(s): E78.5 - Hyperlipidemia, unspecified Category: Medical Plan: Continue statin (3) HTN (hypertension): Comment: BP goal less than 130/80 Code(s): I10 - Essential (primary) hypertension Category: Medical Plan: Continue current medications (4) Hyperthyroidism: Comment: On methimazole, Follow-up with [facility] Endocrinology Code(s): E05.90 - Thyrotoxicosis, unspecified without thyrotoxic crisis or storm Category: Medical Plan: Follow-up with endocrinology (5) H/O colonoscopy: Comment: 06/12/2016 every 5 years. 11/2021 1 polyp 3 mm, at [facility], repeat 7 yrs Code(s): Z98.890 - Other specified postprocedural states Category: Surgical Plan: Up-to-date with colonoscopy (6) Obesity: Comment: BMI 33.0 03/2024 Code(s): E66.9 - Obesity, unspecified Category: Medical Plan: Decrease caloric intake increase physical activity weight loss discussed with the patient follow-up in 6 months Orders: Orders Comprehensive [place]. Panel Fast 6 Months E78.5 - Hyperlipidemia, unspecified, I10 - Essential (primary) hypertension, R73.9 - Hyperglycemia, unspecified Hemoglobin A1c 6 Months E78.5 - Hyperlipidemia, unspecified, I10 - Essential (primary) hypertension, R73.9 - Hyperglycemia, unspecified TSH reflex Free T4 6 Months E78.5 - Hyperlipidemia, unspecified, I10 - Essential (primary) hypertension, R73.9 - Hyperglycemia, unspecified Complete Blood Count Auto Diff 6 Months E78.5 - Hyperlipidemia, unspecified, I10 - Essential (primary) hypertension, R73.9 - Hyperglycemia, unspecified Vitamin D 25-OH Total 6 Months E78.5 - Hyperlipidemia, unspecified, I10 - Essential (primary) hypertension, R73.9 - Hyperglycemia, unspecified Medications: Discontinued tamsulosin Discontinued Reason: Doctor's Order 0.4 mg PO BEDTIME 7 days 7 caps 0RF
[2024-03-10 10:09] VITALS: BP 120/82; PULSE 75; O2SAT 98; BMI 33.0
== END 2024-03-10 11:56 | disposition home or self-care (01) ==
LOC: HO.HMCC 09:35
PROVIDERS: PCP Internal Medicine; Visit Provider Internal Medicine
DX: R73.9 Hyperglycemia, unspecified (principal); E66.9 Obesity, unspecified; Z68.33 Body mass index [BMI] 33.0-33.9, adult; E78.5 Hyperlipidemia, unspecified; I10 Essential (primary) hypertension; E05.90 Thyrotoxicosis, unspecified without thyrotoxic crisis or storm; Z98.890 Other specified postprocedural states

== ENCOUNTER → 2024-03-10 09:35 | Outpatient (BNVA) | payer OTHER, SELFPAY | PROVIDERS: PCP Internal Medicine; Visit Provider Internal Medicine | DX: I10 Essential (primary) hypertension (principal); E78.5 Hyperlipidemia, unspecified; E03.9 Hypothyroidism, unspecified; R73.9 Hyperglycemia, unspecified; E05.90 Thyrotoxicosis, unspecified without thyrotoxic crisis or storm; E66.9 Obesity, unspecified; Z68.33 Body mass index [BMI] 33.0-33.9, adult; Z98.890 Other specified postprocedural states | CPT/HCPCS: 96127; 99212 ==

== ENCOUNTER 2024-03-11 15:04 | Outpatient (AMB) | payer OTHER, SELFPAY ==
--- NOTE | 2024-03-11 15:38 | MHC.OFFVIS ---
Intake Visit Reasons: Litholink Results(set) Intake Note: Patient is present for LITHOLINK RESULTS Urology Medication:ESTRADIOL Antibiotic Allergy:NONE Blood Thinner:NONE Resource Conservationist Required: No Allergies No Known Allergies [No Known Allergies*] Allergy (Verified 03/11/24 15:43) HPI Comments Details: Bonita BLAIR is a very pleasant female. She is a patient of Dr Kirby. She is seen for the following urologic conditions. - nephrolithiasis - overactive bladder - failed Myrbetriq - urethral caruncle Czech translation provided in office by qualified medical billing service Accompanied by Recent ER evaluation at [facility] CT scan done with small stone distal right side Discussed stone formation Had been on vitamin B6 Prior 24 hour evaluation high oxalate in 2017 We will repeat current Uro risk Overactive bladder Previously failed Myrbetriq, terazosin, tadalafil Nephrolithiasis/Urolithiasis: Urolithiasis was diagnosed 2017. The patient previously had kidney stones whose composition w unknown. 24 Hour urine evaluation 12/20 , High oxalate > 30mg. Prior treatment(s) include observation 12/20 bilateral ESWL. Prior imaging includes 10/20 , a renal ultrasound, showing radiodense stone(s) 5mm x 2 on right, 5mm x1 on left 12/20 , a KUB x-ray, ? small right stone 06/21 , a renal ultrasound, showing no evidence of stones 05/22 , a renal ultrasound, showing no evidence of stones. - 07/23 renal ultrasound no evidence of stones - 07/25 renal ultrasound no evidence of stones - 10/26 CT scan [facility] Emergency room right 3 mm UVJ stone, right 3 mm mid pole stone Hydronephrosis none. Current therapeutic plan will be occasional surveillance Urethral caruncle Cystoscopy 11/25 Responds well to topical estrogen Minimal benefit from tadalafil or terazosin for bladder stabilization PFSH Medical History (Updated 03/10/24 @ 11:56 by Zaida Kirby MD) Multinodular thyroid Annual physical exam Normal Pap smear Anxiety Hyperglycemia HTN (hypertension) Osteopenia Nephrolithiasis Atypical hyperplasia of breast Depression Migraine headache Chronic GERD Hyperlipidemia Surgical History (Updated 03/10/24 @ 11:54 by Zaida Kirby MD) H/O colonoscopy History of esophagogastroduodenoscopy (EGD) Status post breast reduction History of hysterectomy Hx of cholecystectomy Family History Father Cancer Mother No problems noted. Social History Household Members Other:: [facility] Housing: Apartment Are you a primary career development specialist to a significant other at home: No Do you presently have visiting nurse or other home services: No Patient Tobacco Use Status: Never used Tobacco e-Cigarette/Vaping Use: Never Used Second Hand Smoke Exposure: No service: No Current occupational status: unemployed Current occupational exposures/hazards: No Cognitive needs: No Hearing needs: No Vision needs: Yes Results AMB Urinalysis, Automated UA Leukoctes 0 Carl/uL Last Edit by SILVINO Sheldon on 03/11/24 15:55 UA Nitrite Negative Last Edit by SILVINO Sheldon on 03/11/24 15:55 UA Urobilinogen 0.2 mg/dL Last Edit by SILVINO Sheldon on 03/11/24 15:55 UA Protein 0 mg/dL Last Edit by SILVINO Sheldon on 03/11/24 15:55 UA pH 6.0 Last Edit by SILVINO Sheldon on 03/11/24 15:55 UA Blood 0 Imer/uL Last Edit by SILVINO Sheldon on 03/11/24 15:55 UA Specific [place] 1.020 Last Edit by SILVINO Sheldon on 03/11/24 15:55 UA Ketone Negative Last Edit by SILVINO Sheldon on 03/11/24 15:55 UA Bilirubin 0 mg/dL Last Edit by Ryan Galvan CCM on 03/11/24 15:55 UA Glucose 0 mg/dL Last Edit by Ryan Galvan CCM on 03/11/24 15:55 Results Reviewed Results Reviewed: Laboratory Last Values Urine pH (Auto) 6.0 03/11/24 15:55 Specific [place] (Auto) 1.020 03/11/24 15:55 Urine Protein (Auto) 0 mg/dL 03/11/24 15:55 Glucose (UA)(Auto) 0 mg/dL 03/11/24 15:55 Urine Ketones (Auto) Negative 03/11/24 15:55 Urine Blood (Auto) 0 Imer/uL 03/11/24 15:55 Urine Nitrite (Auto) Negative 03/11/24 15:55 Urine Bilirubin (Auto) 0 mg/dL 03/11/24 15:55 Urine Urobilinogen (Auto) 0.2 mg/dL 03/11/24 15:55 Leukocyte Esterase (Auto) 0 Carl/uL 03/11/24 15:55 Assessment & Plan Assessment & Plan Orders: Orders US renal BI 12 Months N20.0 - Calculus of kidney AMB Urinalysis Automated Today Z13.9 - Encounter for screening, unspecified Coding
== END 2024-03-11 16:39 | disposition home or self-care (01) ==
PROVIDERS: PCP Internal Medicine; Visit Provider Urology
DX: Z13.9 Encounter for screening, unspecified (principal)

== ENCOUNTER → 2024-03-11 15:04 | Outpatient (BNVA) | payer OTHER, SELFPAY | PROVIDERS: PCP Internal Medicine; Visit Provider Urology | DX: N20.0 Calculus of kidney (principal); N32.81 Overactive bladder; N36.2 Urethral caruncle | CPT/HCPCS: 81003; 99212 ==

== ENCOUNTER 2024-03-17 09:08 | Outpatient (AMB) | payer OTHER, SELFPAY ==
--- NOTE | 2024-03-17 09:47 | A.OFFVIS_ITS ---
Vital Signs 03/17/24 09:49 Height 5 ft 7 in Weight 216 lb 0.848 oz BMI 33.8 BP 127/81 Blood Pressure Location Lt brachial Position Sitting Pulse 83 Intake Visit Reasons: S/P EGD Intake Note: Bonita presents in the office as a follow up EGD. CC: Patient c/o stomach pain. Rag Baler Required: Yes Allergies No Known Allergies [No Known Allergies*] Allergy (Verified 03/17/24 09:55) HPI Comments Details: 61 y.o F with PMH of Grave's disease who has been referred here for elevated ALP intermittent x 2-3 times UNL. 08/11/22: Pt reports she has been seen by [facility] for this as well earleir this as was told she has fatty liver. Otherwise no abd pain, N,V, changes in bowel habits. US with elastography 06/2022: no ductal dilation noted. 4kPA stiffness corresponding with no fibrosis. Last colonoscopy was in 11/2021: x1 small T.A, repeat recommended in 7-10 years. Also reports having an EGD 5-10 years ago and was told to repeat it in 2 years due to her fam hx of gastric ca in father. 09/22/22: Labs reviewed. Fractionation of ALP showed primarily bone related ALP and further testing also came back positive for hyperparathyroidism. Pt is established with Dr Barber in Endocrinology at [facility] and was advised to call her office for follow up. Reports will also be faxed over to her office. Otherwise, does not report any abd pain, N,V, itching, abd distention. 05/23/23: Here for follow up for abd discomfort and bloating. Office had been attempting to schedule her since last year. Currently pt reports has mid epigastric pain which is burning assoc with nausea, bloating and frequent belching. Was started on omeprazole but does report had better sx control on nexium. Diet rich in high FODMAPS which could be contributing. 03/04/24: * Normal esophagus * Food in stomach * Normal duodenum ? 03/17/24: Seen in follow up. Reviewed that EGD done expeditiously without any biopsies as large amounts of food was present in stomach. GES ordered as scheduled for next month. Pt continues with abd bloating and belching. Epigastric pain and burning better with nexium. No esophagitis noted during EGD. PFSH Medical History (Updated 03/17/24 @ 10:27 by Moni James MD) Multinodular thyroid Annual physical exam Normal Pap smear Anxiety Hyperglycemia HTN (hypertension) Osteopenia Nephrolithiasis Atypical hyperplasia of breast Depression Migraine headache Chronic GERD Hyperlipidemia Surgical History (Updated 03/10/24 @ 11:54 by Zaida Kirby MD) H/O colonoscopy History of esophagogastroduodenoscopy (EGD) Status post breast reduction History of hysterectomy Hx of cholecystectomy Family History Father Cancer Mother No problems noted. Social History Household Members Other:: [facility] Housing: Apartment Are you a primary rn managed care to a significant other at home: No Do you presently have visiting nurse or other home services: No Patient Tobacco Use Status: Never used Tobacco e-Cigarette/Vaping Use: Never Used Second Hand Smoke Exposure: No service: No Current occupational status: unemployed Current occupational exposures/hazards: No Cognitive needs: No Hearing needs: No Vision needs: Yes Physical Exam Vital Signs: Last Vital Signs Pulse 83 03/17/24 09:49 BP 127/81 03/17/24 09:49 BMI result Body Mass Index 33.8 No apparent distress, with obesity Nonicteric Abdomen soft, nondistended Alert and oriented x3, normal gait Assessment & Plan Assessment & Plan (1) Obesity: Comment: BMI 33.0 03/2024 Code(s): E66.9 - Obesity, unspecified Category: Medical (2) Abdominal pain: Code(s): R10.9 - Unspecified abdominal pain Category: Medical (3) Bloating: Code(s): R14.0 - Abdominal distension (gaseous) Category: Medical (4) Delayed gastric emptying: Code(s): K30 - Functional dyspepsia Category: Medical Plan Suspect delayed gastric emptying based on endoscopic appearance. GES ordered and deric for next month. Plan: - Follow up GES - Cont nexium and simethicone - Will also need repeat EGD after the issue above has been resolved - Follow up in 4-6 weeks Medications: Refilled simethicone (Gas Relief (simethicone)) 125 mg PO TID-QID PRN 90 caps 1RF abdominal distention Coding Level of Care Code Est Pt Level 3 (25551) Diagnoses Obesity E66.9 Abdominal pain R10.9 Bloating R14.0 Delayed gastric emptying K30
[2024-03-17 09:49] VITALS: BP 127/81; PULSE 83; BMI 33.8
== END 2024-03-17 10:24 | disposition home or self-care (01) ==
PROVIDERS: PCP Internal Medicine; Visit Provider Internal Medicine
DX: E66.9 Obesity, unspecified (principal); R10.9 Unspecified abdominal pain; R14.0 Abdominal distension (gaseous); K30 Functional dyspepsia
CPT/HCPCS: 99213

== ENCOUNTER → 2024-03-17 09:08 | Outpatient (BNVA) | payer OTHER, SELFPAY | PROVIDERS: PCP Internal Medicine; Visit Provider Internal Medicine | DX: K30 Functional dyspepsia (principal); R14.0 Abdominal distension (gaseous); R10.9 Unspecified abdominal pain; E66.9 Obesity, unspecified; Z68.33 Body mass index [BMI] 33.0-33.9, adult | CPT/HCPCS: 99212 ==

== ENCOUNTER → 2024-04-08 08:05 | Outpatient (REF) | payer OTHER, SELFPAY ==
--- NOTE | ~2024-04-08 | NM_ITS ---
EXAMINATION: NM RADIONUCLIDE SOLID FOOD GASTRIC EMPTYING 4-HOUR STUDY CLINICAL INFORMATION: Abdominal distention. Pain COMPARISON: None TECHNIQUE: A standard meal consisting of 4 oz of Egg Beaters brand tagged with 0.99 microcuries Tc-99m Sulfur Colloid, 4 oz water and 2 slices of toast with jelly and 6 ounces was administered orally to the patient. Images were obtained using a dual head gamma camera in the anterior and posterior projections over of the stomach immediately post ingestion and at hourly intervals up to 4 hours post ingestion. The anterior and posterior counts at each time interval were averaged using the geometric mean and expressed as percentage of the immediate post ingestion counts. FINDINGS: There is good visualization of activity in the stomach immediately post ingestion. As the study progresses, there is good clearance of activity from the stomach and visualization of progressively increasing small bowel activity. By the end of the study, there is almost no retention noted in the stomach. Retention in the stomach at each time interval was: 1 hour 70%% (normal 37%-90%) 2 hours 28% (normal 30%-60%) 3 hours 2% 4 hours % (normal 0%-10%). Not done NM/NM gastric emptying study IMPRESSION: Normal 4-hour solid food gastric emptying study. For solid meal, rapid gastric emptying is less than 30% at 60 minutes. Delayed gastric emptying criteria is more than 60% remaining at 120 minutes or more than 10% at 240 minutes. The 4-hour value is the best discriminator of a normal or abnormal result). Gastric emptying study grading per JNMT Consensus Recommendations in 2008 (https://tech.snmjournals.org/content/36/44) Grade 1 (mild retention): 11-20% at 4h Grade 2 (moderate retention): 21-35% at 4h Grade 3 (severe retention): 36-50% at 4h Grade 4 (very severe retention): >50% retention at 4h Electronically signed by: Nelson Styles MD 04/08/2024 01:34 PM [facility]
--- OUTSIDE RECORDS SUMMARY | 2024-04-08 08:08 | XMS_ITS | Clinical Summary ---
Author Organization [employer] Address [address] [place] [address] Care Team Providers Care Chief Librarian Music Department Name Role Phone Unavailable Primary Care Provider Unavailabl e Social History Tobacco Use Types Packs/Day Years Used Date Smoking Tobacco: Never Assessed Comments Unknown Sex and Gender Information Value Date Recorded Sex Assigned at Female 01/02/2022 10:29 AM EDT Legal Sex Female 10:29 AM EDT Gender Identity Female 01/02/2022 10:29 AM EDT Sexual Orientation Straight 01/02/2022 10 :29 AM EDT Plan of Treatment Health Maintenance Due Date Last Done Comments CT Colonography 1960 Colonoscopy 1960 Colorectal Cancer Screening 1960 Depression Screening 1960 FIT DNA/Cologuard 1960 FIT 1960 FOBT 1960 Sigmoidoscopy 1960 Alcohol/Substance Use Screening 1972 Tobacco Screening 1972 DTaP/Tdap/Td Vaccines (1 - Tdap) 10/01/1979 Pap Smear 1981 Cervical Cancer Screening 1990 HPV/Cotest 1990 Mammogram 2000 Pneumococcal Vaccine: 50+ Ye ars (1 of 1 - PCV) 2010 Zoster Vaccines (1 of 2) 2010 COVID-19 Vaccine ( - 2023-2 5 season) 2023 Influenza Vaccine (#1) 2023 RSV Patients and Pa tients Aged 60 years or older (1 - 1-dose 75+ series) 10/01/2035 HIB Vaccines Aged Out No longer eligi ble based on patient's age to complete this topic HPV Vaccines Aged Out No longer eligi ble based on patient's age to complete this topic Hepatitis A Vaccines Aged Out No long er eligible based on patient's age to complete this topic Hepatitis B Vaccines Aged Out No long er eligible based on patient's age to complete this topic IPV Vaccines Aged Out No longer eligi ble based on patient's age to complete this topic Meningococcal Vaccine Aged Out No stephen scar eligible based on patient's age to complete this topic Pneumococcal Vaccine: Pediat rics (0 to 5 Years) and At-Risk Patients (6 to 49) Years) Aged Out No longer eligible b ased on patient's age to complete this topic RSV under 20 months Aged Out No longe r eligible based on patient's age to complete this topic Rotavirus Vaccines Aged Out No longer eligible based on patient's age to complete this topic
--- OUTSIDE RECORDS SUMMARY | 2024-04-08 08:08 | XMS_ITS | Encounter Summary ---
Author Organization [employer] [facility] Address [address] [place] [address] Care Team Providers Care Admissions Specialist Name Role Phone Unavailable Primary Care Provider Unavailabl e Encounter Details Date Type Department Care Team (Latest Contact Info) Description 08/12/2018 Abstract [facility] CONVERSIONS Dental, Provider, DDS Social History Tobacco Use Types Packs/Day Years Used Date Smoking Tobacco: Never Assessed Comments Unknown Sex and Gender Information Value Date Recorded Sex Assigned at Female 01/02/2022 10:29 AM EDT Legal Sex Female 10:29 AM EDT Gender Identity Female 01/02/2022 10:29 AM EDT Sexual Orientation Straight 01/02/2022 10 :29 AM EDT documented as of this encounter Plan of Treatment Not on file documented as of this encounter Visit Diagnoses Not on filedocumented in this encounter
--- OUTSIDE RECORDS SUMMARY | 2024-04-08 08:08 | XMS_ITS | Data Portability ---
Author Organization [place] [facility], Allergy Address [address] [address] Care Team Providers Care Radioactivity Technician Name Role Phone [email or web address] Primary Care Provider Assessment Encounter Date Assessment Date Assessment LastModified by Organization Details LastModified Time 03/21/2024 03/21/2024 Patient requested refill of ipratropium, she feels it is able to mildly help her chronic nasal congestion and rhinorrhea. Prescription was refilled. Reviewed alternative nasal sprays which she has tried in the past which were not helpful. She would like to follow-up in 1 year for help with additional refills [email or web address] Not available 03/21/2024 15:41:29 Plan of Treatment Reminders Order Date Submit Date Provider Last Modified By Organization Details Last Modified Time Details Appointments None recorded. Lab None recorded. Referral None recorded. Procedures None recorded. Surgeries None recorded. Imaging None recorded. Medication Orders ipratropium bromide 21 mcg (0.03 %) nasal spray [address] [facility] #[id number], [address] [place], [address], 15:41:32 Patient TargetsNo targets recorded. Patient InstructionsNo instructions recorded. Reason for Referral None Reported. Problems Name Problem SNOMED Code Status Onset Date Resolution Date Notes Provider Name and Address Organization Details Recorded Time Acute sinusitis 13453187 Active 2013 Acute sinusiti s; Note: Date Diagnose d: 01/23/20 14 10:45 AM (461.9) Not Available [facility] 4 03:21:08 Nasal congestion 03352342 Active 2021 Nasal congesti on; Note: Date Diagnose d: 11/09/2021 2:16 PM (R09.81) Not Available [facility] 4 03:21:09 Chronic rhinitis 32023042 Active 2021 Chronic rhinitis ; Note: Date Diagnose d: 11/09/2021 2:16 PM (J31.0) Not Available [facility] 4 03:21:09 Problem Notes None recorded. Procedures Surgical History Date Name Laterality Status Provider Name and Address Organization Details Recorded Time cholecystectomy completed Jada Cardona [place] [facility] 03/21/2024 15:07:01 Imaging Results None recorded. Procedure Notes None recorded. Medical Equipment None Reported. Allergies No known drug allergies Medications Name Sig Start Date Stop Date Status Note LastModified by Organization Details LastModified Time budesonid e 32 mcg/actua tion nasal spray [place] 2 spray into both nostrils once a day 03/21 completed Medicati on ID: [id number] D uration Value: 30 Brand Name: budandra de Send Method: E-Prescr ibed Sub s Allowed: subs OK Medic ationGen ericName : budesoni de Not Available Not Available Not Available Evista 60 mg tablet 04/19 completed Medicati on ID: [id number] Br and Name: Evista S end Method: E-Prescr ibed Sub s Allowed: subs OK Medic ationGen ericName : Evista Not Available Not Available Not Available Saline Mist 0.65 % nasal spray aerosol [place] 2 spray into both nostrils four times a day 03/21 completed Medicati on ID: [id number] D uration Value: 30 Brand Name: Saline Mist Sen d Method: E-Prescr ibed Sub s Allowed: subs OK Medic ationGen ericName : Saline Mist Not Available Not Available Not Available cefpodoxi me 100 mg tablet TAKE 1 TABLET BY MOUTH TWICE A DAY 03/21 completed Not Available Not Available Not Available butalbita l-acetami nophen-ca ffeine 50 mg-325 mg-40 mg tablet 04/19 completed Medicati on ID: [id number] Du ration Value: 5 Brand Name: butalbit al-aceta minophen -caff Se nd Method: E-Prescr ibed Sub s Allowed: subs OK Speci al Instruct ion: TOME EULA TABLETA CADA SEIS HORAS CUANDO SEA NECESARI O Medica tionGene ricName: butalbit al-aceta minophen -caff Not Available Not Available Not Available ketorolac 10 mg tablet TAKE 1 TABLET BY MOUTH EVERY 6 HOURS 03/21 completed Not Available Not Available Not Available clindamyc in 1 % topical gel APPLY TO RASH IN GROIN TWICE DAILY NEEDED. active Not Available Not Available No t Available tamsulosi n 0.4 mg capsule TAKE 1 CAPSULE BY MOUTH DAILY 03/21 completed Not Available Not Available Not Available econazole nitrate 1 % topical cream APPLY TO AFFECTED AREAS ON FEET TWICE DAILY FOR 3-4 WEEKS THEN 1-2X WEEKLY. active Not Available Not Available No t Available diphenhyd ramine 25 mg capsule 04/19 completed Medicati on ID: [id number] Du ration Value: 30 Brand Name: diphenhy dramine HCl Send Method: E-Prescr ibed Sub s Allowed: subs OK Speci al Instruct ion: TOME 2 CAPSULAS POR VIA ORAL AL ACOSTARS E Medica tionGene ricName: diphenhy dramine HCl Not Available Not Available Not Available Stool Softener 250 mg capsule TAKE 1 CAPSULE BY MOUTH DAILY 03/21 completed Not Available Not Available Not Available methimazo le 5 mg tablet active Not Available Not Available Not Available Gas Relief Extra Strength 125 mg capsule TAKE 1 CAPSULE BY MOUTH 3-4 TIMES DAILY NEEDED FOR ABDOMINA L DISTENTI ON active Not Available Not Available No t Available pyridoxin e (vitamin B6) 50 mg tablet TAKE 1 TABLET BY MOUTH EVERY DAY active Not Available Not Available No t Available zolpidem 5 mg tablet TAKE 1 TABLET BY MOUTH EVERYDAY AT BEDTIME active Not Available Not Available No t Available pyridoxin e (vitamin B6) 100 mg tablet TAKE 1 TABLET BY MOUTH EVERY DAY 03/21 completed Not Available Not Available Not Available clobetaso l 0.05 % topical ointment APPLY TOPICALL Y TO GROIN TWICE DAILY FOR NO MORE THAN 2 WEEKS, BREAK 1 WEEK, REPEAT NEEDED 03/21 completed Not Available Not Available Not Available lorazepam 1 mg tablet TAKE 1 TABLET BY MOUTH EVERY DAY NEEDED active Not Available Not Available No t Available azelastin e 137 mcg (0.1 %) nasal spray Inh[place] 2 spray into both nostrils twice a day as directed 03/21 completed Medicati on ID: [id number] D uration Value: 30 Brand Name: chilango ne Send Method: E-Prescr ibed Sub s Allowed: subs OK Medic ationGen ericName : azelasti ne Not Available Not Available Not Available estradiol 0.01% (0.1 mg/gram) vaginal cream FOR 30 DAYS PEA-SIZE D TO URETHRA DAILY active Not Available Not Available No t Available methimazo le 10 mg tablet TAKE 1 TABLET BY MOUTH EVERY DAY. 03/21 completed Not Available Not Available Not Available ipratropi um bromide 21 mcg (0.03 %) nasal spray SPRAY 2 SPRAYS INTO INTO EACH NOSTRIL 3 TIMES A DAY active Not Available Not Available No t Available amoxicill in 875 mg-potass ium clavulana te 125 mg tablet 04/19 completed Medicati on ID: [id number] Br and Name: Augmenti n Send Method: E-Prescr ibed Sub s Allowed: subs OK Speci al Instruct ion: 1 tablet by mouth every 12 hours x 10 days Med icationG enericNa me: Augmenti n Not Available Not Available Not Available Ventolin HFA 90 mcg/actua tion aerosol inhaler TAKE 2 PUFFS (INHALAT ION) EVERY 6 HOURS (SHORTNE SS OF BREATH OR WHEEZING ) FOR 10 DAYS 03/21 completed Not Available Not Available Not Available esomepraz ole magnesium 20 mg capsule,d elayed release TAKE 1 CAPSULE BY MOUTH DAILY active Not Available Not Available No t Available clindamyc in 1 % lotion APPLY TOPICALL Y TO RASH IN GROIN AREA TWICE DAILY NEEDED 03/21 completed Not Available Not Available Not Available olmesarta n 20 mg tablet TAKE 1 TABLET BY MOUTH DAILY active Not Available Not Available No t Available Vitamin D3 25 mcg (1,000 unit) tablet TAKE 1 TABLET BY MOUTH EVERY DAY active Not Available Not Available No t Available Vitamin D3 25 mcg (1,000 unit) capsule TAKE 1 CAPSULE ORALLY EVER DAY 03/21 completed Not Available Not Available Not Available rosuvasta tin 5 mg tablet TAKE 1 TABLET BY MOUTH EVERY DAY active Not Available Not Available No t Available Crestor 20 mg tablet 03/21 completed Medicati on ID: [id number] Du ration Value: 30 Brand Name: Edi Send Method: E-Prescr ibed Sub s Allowed: subs OK Speci al Instruct ion: TOME EULA TABLETA POR VIA ORAL TODOS LOS MARTINEZ Med icationG enericNa me: Crestor Not Available Not Available Not Available tadalafil 5 mg tablet TAKE ONE TABLET BY MOUTH EVERY DAY FOR BLADDER STABILIT Y 03/21 completed Not Available Not Available Not Available Probiotic (S.boular dii) 250 mg capsule TAKE 1 TABLET BY MOUTH DAILY *NOT COVERED 03/21 completed Not Available Not Available Not Available Vitals None Recorded Social History None recorded. Functional Status None recorded. Mental Status None recorded. Family History Nothing Reported. Medical History Condition Response Hypertension Y High Cholesterol Y Gynecological HistoryNo gynecological history recorded. Obstetrics History GPAL:G 0 P 0 0 0 0 Past Encounters Encounter ID Performer Location Encounter Start Date Encounter Closed Date Diagnosis/Indication Diagnosis SNOMED-CT Code Diagnosis ICD10 Code Diagnosis Note [id number] CHASTITY MACE MD [facility] [address] [address] 03/21/2024 14:57:13 03/21/2024 15:41:42 Nasal congestion 95931496 R09.81 Health Concerns Section Related Observation LastModified by Organization Detai ls LastModified Time None Recorded Concern Status LastModified by Organization Details LastModified Time None Recorded Advance Directives Directive None Recorded Payers Encounter Date Sequence Insurance Name Policy Number Policy Stehpen Covered Member ID Stephen Member ID Guarantor Name 03/21/2024 1 [facility] [employer] - HEALTH NET PLAN (MEDICAID HMO) MEDHAT Gabriel [id number] Bonita Gabriel Notes Date Note Type Note Provider Name and Address Organization Details Recorded Time 03/21/19 25 text/htm l Prydeinig - friend is translatingsinusrequesting refill of nose spray PV 05/18/22 Graciela - allergy testing negative, CT sinus clear. rx trial [email or web address] no relief of chronic nasal congestion, rhinitis with budesonide, nasal saline, azelastine CHASTITY MACE MD [address] [place] [address], [place], [address], [place] [facility] 03/21/2024 15:41:41 OBGyn Episode No OBEpisode recorded.
--- OUTSIDE RECORDS SUMMARY | 2024-04-08 08:08 | XMS_ITS | Encounter Summary ---
Author Organization [employer] [facility] Address [address] 7 [place] [address] Care Team Providers Care Diesel Powerplant Mechanic Name Role Phone Unavailable Primary Care Provider Unavailabl e Encounter Details Date Type Department Care Team (Latest Contact Info) Description 02/17/2019 Abstract [facility] CONVERSIONS Dental, Provider, DDS Social History Tobacco [...]
--- OUTSIDE RECORDS SUMMARY | 2024-04-08 08:08 | XMS_ITS | Clinical Summary ---
Author Organization [facility] Address [address] [place] [address] Phone Care Team Providers Care Hoisting Engine Operator Name Role Phone Zaida Kirby MD Primary Care Provider [phone] Surgical History Surgery Date Site/Laterality Comments CHOLECYSTECTOMY 2013 PROCEDURE: [place] CHOLECYSTECTOMY Medical History Medical History Date Comments Anxiety state DX:Anxiety state Depressive disorder DX:Depressiv e disorder Family History Relation Name Status Comments Father Mother Social History Tobacco Use Types Packs/Day Years Used Date Smoking Tobacco: Former Smokeless Tobacco: Former Alcohol Use Standard Drinks/Week Comments No 0 (1 standard drink = 0.6 oz pur e alcohol) Sex and Gender Information Value Date Recorded Sex Assigned at Not on file Gender Identity Not on file Sexual Orientation Not on file Job Start Date Occupation Industry Not on file Not on file Not on file Obstetrics History Plan of Treatment Health Maintenance Due Date Last Done Comments Breast Cancer Screening 1960 DTaP,Tdap,and Td Vaccines (1 - Tdap) 10/01/1979 Cervical Cancer Screening: P ap Smear 1981 Zoster Vaccines (1 of 2) 2010 Colorectal Cancer Screening: Colonoscopy 02/05/2022 Depression Screening 02/05/2022 HIV Screening 02/05/2022 Hepatitis C Screening 02/05/2022 Social Influencers of Health Screening 02/05/2022 COVID-19 Vaccine ( - 2023-2 5 season) 2023 Influenza Vaccine (#1) 2023 Cholesterol Screening (Lipid Panel) 03/06/2029 03/06/2024 RSV Immunization Patients 60 + Years Old (1 - 1-dose 75+ series) 10/01/2035 HIB [...] on patient's age to complete this topic MMR Vaccines Aged Out No longer eligi ble based on patient's age to complete this topic Meningococcal ACWY Vaccine Aged Out N o longer eligible based on patient's age to complete this topic Pneumococcal Vaccine: Pediat rics (0 to 5 Years) and At-Risk Patients (6 to 64 Years) Aged Out No longer eligi ble based on patient's age to complete this topic RSV Immunization Patients Un melinda 20 months Aged Out No longer eligible b ased on patient's age to complete this topic Varicella Vaccines Aged Out No longer eligible based on patient's age to complete this topic Procedures Procedure Name Priority Date/Time Associated Diagnosis Comments CBC WITH AUTO DIFFERENTIAL Routine 03/06/2024 11:22 AM EST 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 Hyperlipemia Hyperglycemia HEMOGLOBIN A1C Routine 03/06/2024 11:22 AM EST 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 Hyperlipemia Hyperglycemia LIPID PANEL WITH REFLEX TO DIRECT LDL Routine 03/06/2024 11:22 AM EST 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 Hyperlipemia Hyperglycemia COMPREHENSIVE METABOLIC PANEL Routine 03/06/2024 11:22 AM EST 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 Hyperlipemia Hyperglycemia CBC AND DIFFERENTIAL Routine 03/06/2024 11:22 AM EST 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 Hyperlipemia Hyperglycemia from Last 3 Months Results * Lipid panel with reflex to direct LDL (03/06/2024 11:22 AM EST) [facility] Cholesterol 145 0 - 200 mg/dL LAB CHEMISTRY METHOD 03/06/2024 2:07 PM EST [facility] Triglycerides 82 0 - 150 mg/dL LAB CHEMISTRY METHOD 03/06/2024 2:07 PM [facility] HDL 57 >=40 mg/dL LAB CHEMISTRY METHOD 03/06/2024 2:07 PM [facility] LDL Calculated 72 0 - 100 mg/dL LAB CHEMISTRY METHOD 03/06/2024 2:07 PM [facility] VLDL Cholesterol Jay 16.4 mg/dL LAB CHEMISTRY METHOD 03/06/2024 2:07 PM [facility] Non HDL Chol. (LDL+VLDL) 88 <145 mg/dL LAB CHEMISTRY METHOD 03/06/2024 2:07 PM [facility] Chol/HDL Ratio 2.5 0.0 - 4.4 LAB CHEMISTRY METHOD 03/06/2024 2:07 PM [facility] Blood Venous blood specimen / Unknown Venipuncture / Unknown 03/06/2024 11:22 AM EST 03/06/2024 1:43 PM EST Zaida Kirby MD LAB BLOOD ORDERABLES [facility] [address] [place] [address], * CBC auto differential (03/06/2024 11:22 AM EST) WBC 8.9 4.8 - 10.8 K/mcL LAB HEMETOLOGY METHOD 03/06/2024 1:50 PM [facility] RBC 4.80 3.80 - 4.80 M/mcL LAB HEMETOLOGY METHOD 03/06/2024 1:50 PM [facility] Hemoglobin 13.3 11.5 - 16.0 g/dL LAB HEMETOLOGY METHOD 03/06/2024 1:50 PM [facility] Hematocrit 40.9 35.0 - 47.0 % LAB HEMETOLOGY METHOD 03/06/2024 1:50 PM [facility] MCV 85.2 79.0 - 98.0 FL LAB HEMETOLOGY METHOD 03/06/2024 1:50 PM [facility] MCH 27.7 27.0 - 32.0 pcg LAB HEMETOLOGY METHOD 03/06/2024 1:50 PM [facility] MCHC 32.5 32.0 - 37.0 g/dL LAB HEMETOLOGY METHOD 03/06/2024 1:50 PM [facility] RDW 13.4 11.0 - 15.0 % LAB HEMETOLOGY METHOD 03/06/2024 1:50 PM [facility] Platelets 278 130 - 400 K/mcL LAB HEMETOLOGY METHOD 03/06/2024 1:50 PM [facility] MPV 10.5 7.0 - 11.0 FL LAB HEMETOLOGY METHOD 03/06/2024 1:50 PM [facility] NRBC 0.0 <1.0 % LAB HEMETOLOGY METHOD 03/06/2024 1:50 PM [facility] NRBC Absolute 0.00 <0.10 K/mcL LAB HEMETOLOGY METHOD 03/06/2024 1:50 PM [facility] Neutrophils Relative 59.7 % LAB HEMETOLOGY METHOD 03/06/2024 1:50 PM [facility] Lymphocytes Relative 31.3 % LAB HEMETOLOGY METHOD 03/06/2024 1:50 PM [facility] Monocytes Relative 6.4 % LAB HEMETOLOGY METHOD 03/06/2024 1:50 PM [facility] Eosinophils Relative 1.7 % LAB HEMETOLOGY METHOD 03/06/2024 1:50 PM [facility] Basophils Relative 0.6 % LAB HEMETOLOGY METHOD 03/06/2024 1:50 PM [facility] Immature Granulocytes Relative 0.3 % LAB HEMETOLOGY METHOD 03/06/2024 1:50 PM EST [facility] Neutrophils Absolute 5.33 1.50 - 7.00 [facility] LAB HEMETOLOGY METHOD 03/06/2024 1:50 PM EST [facility] Lymphocytes Absolute 2.79 1.00 - 5.00 K/mcL LAB HEMETOLOGY METHOD 03/06/2024 1:50 PM EST [facility] Monocytes Absolute 0.57 0.20 - 1.00 [facility] LAB HEMETOLOGY METHOD 03/06/2024 1:50 PM EST [facility] Eosinophils Absolute 0.15 0.00 - 0.50 [facility] LAB HEMETOLOGY METHOD 03/06/2024 1:50 PM EST [facility] Basophils Absolute 0.05 0.00 - 0.20 K/mcL LAB HEMETOLOGY METHOD 03/06/2024 1:50 PM EST [facility] Immature Granulocytes Absolute 0.03 0.00 - 0.03 [facility] LAB HEMETOLOGY METHOD 03/06/2024 1:50 PM EST [facility] Blood Venous blood specimen / Unknown Venipuncture / Unknown 03/06/2024 11:22 AM EST 03/06/2024 1:43 PM EST Zaida Kirby MD LAB BLOOD ORDERABLES [facility] [address] [place] [address], * Hemoglobin A1c (03/06/2024 11:22 AM EST) Hemoglobin A1C 5.5 <6.5 % LAB CHEMISTRY METHOD 03/06/2024 9:18 PM EST [facility] Mean Bld Glu Estim. 111 mg/dL LAB CHEMISTRY METHOD 03/06/2024 9:18 PM EST [facility] Blood Venous blood specimen / Unknown Venipuncture / Unknown 03/06/2024 11:22 AM EST 03/06/2024 1:43 PM EST Zaida Kirby MD LAB BLOOD ORDERABLES [facility] [address] [place] [address], * (ABNORMAL) Comprehensive metabolic panel (03/06/2024 11:22 AM EST) Sodium 141 133 - 145 mmol/L LAB CHEMISTRY METHOD 03/06/2024 2:07 PM [facility] Potassium 4.1 3.5 - 5.5 mmol/L LAB CHEMISTRY METHOD 03/06/2024 2:07 PM [facility] Chloride 110 96 - 110 mmol/L LAB CHEMISTRY METHOD 03/06/2024 2:07 PM [facility] CO2 26 21 - 32 mmol/L LAB CHEMISTRY METHOD 03/06/2024 2:07 PM [facility] Anion Gap 5 3 - 11 LAB CHEMISTRY METHOD 03/06/2024 2:07 PM [facility] Glucose 116(H) 70 - 100 mg/dL LAB CHEMISTRY METHOD 03/06/2024 2:07 PM [facility] BUN 16 5 - 25 mg/dL LAB CHEMISTRY METHOD 03/06/2024 2:07 PM [facility] Creatinine 0.79 0.50 - 1.10 mg/dL LAB CHEMISTRY METHOD 03/06/2024 2:07 PM [facility] eGFR 84 >=60 mL/min/1. 73m2 LAB CHEMISTRY METHOD 03/06/2024 2:07 PM [facility] Comment:Calculation based on the??Chronic Kidney Disease Epidemiology Collaboration (CKD-EPI) equation refit??without adjustment for race. BUN/Creatinine Ratio 20.3 LAB CHEMISTRY METHOD 03/06/2024 2:07 PM [facility] Calcium 9.4 8.5 - 10.5 mg/dL LAB CHEMISTRY METHOD 03/06/2024 2:07 PM [facility] AST (SGOT) 19 10 - 42 unit/L LAB CHEMISTRY METHOD 03/06/2024 2:07 PM [facility] ALT (SGPT) 34 10 - 60 unit/L LAB CHEMISTRY METHOD 03/06/2024 2:07 PM [facility] Alkaline Phosphatase 119 42 - 121 unit/L LAB CHEMISTRY METHOD 03/06/2024 2:07 PM [facility] Total Protein 7.3 6.0 - 8.0 g/dL LAB CHEMISTRY METHOD 03/06/2024 2:07 PM [facility] Albumin 3.9 3.2 - 5.0 g/dL LAB CHEMISTRY METHOD 03/06/2024 2:07 PM [facility] Total Bilirubin 0.7 0.0 - 1.4 mg/dL LAB CHEMISTRY METHOD 03/06/2024 2:07 PM [facility] Blood Venous blood specimen / Unknown Venipuncture / Unknown 03/06/2024 11:22 AM EST 03/06/2024 1:43 PM EST Zaida Kirby MD LAB BLOOD ORDERABLES [facility] [address] [place] [address], from Last 3 Months Care Teams Hoisting Engine Operator Relationship Specialty Start Date End Date Zaida Kirby MD PCP - General Internal Medicine 07/17/13
--- OUTSIDE RECORDS SUMMARY | 2024-04-08 08:08 | XMS_ITS | Clinical Summary ---
Author Organization [facility] Address [address] [place] [address] Care Team Providers Care Silk Worker Name Role Phone Unavailable Primary Care Provider Unavailabl e Source Comments PLEASE NOTE, if this patient is a minor, it may be UNLAWFUL to discuss sensitive information that is contained in these records (such as FAMILY PLANNING, MENTAL HEALTH or SUBSTANCE ABUSE) with the minor patient's parent or other person without the patient's specific authorization.[facility] Social History Tobacco Use Types Packs/Day Years Used Date Smoking Tobacco: Never Assessed Social Connections Answer Date Recorded Social Connections and Isolation 0 02/08/2021 Financial Resource Strain Answer Date R ecorded Financial Resource Strain 0 2020 Stress Answer Date Recorded Stress 0 02/08/2021 Physical Activity Answer Date Recorded Physical Activity 0 02/08/2021 Food Insecurity Answer Date Recorded Food 0 02/08/2021 Transportation Needs Answer Date Record ed Transportation 0 02/08/2021 Housing Stability Answer Date Recorded Housing 0 02/08/2021 Safety and Environment Answer Date Mo rded Safety 0 02/08/2021 Utilities Answer Date Recorded Utilities 0 02/08/2021 Employment Answer Date Recorded Employment 0 02/08/2021 Comments Unknown Sex and Gender Information Value Date Recorded Sex Assigned at Not on file Legal Sex Female 11:22 AM PST Gender Identity Not on file Sexual Orientation Not on file Plan of Treatment Not on file [place] [facility] [place] [id number]
--- OUTSIDE RECORDS SUMMARY | 2024-04-08 08:08 | XMS_ITS | Continuity of Care Document ---
Author Organization [place] - [facility], [facility] Address [address] [place] [address] Care Team Providers Care Psychologist Social Name Role Phone JAYLA RESENDIZ Primary Care Provider [phone] Assessment Encounter Date Assessment Date Assessment LastModified [...] mcg (0.03 %) nasal spray 2024 025 [facility]/Pharmacy #[id number], [address] [place], [address], 15:41:32 Patient TargetsNo targets recorded. Patient InstructionsNo instructions recorded. Reason for Referral None Reported. Problems Name Problem SNOMED Code Status Onset Date Resolution Date Notes Provider Name and Address Organization Details Recorded Time Acute sinusitis 49214740 Active 2013 Acute sinusiti s; Note: Date Diagnose d: 01/23/20 14 10:45 AM (461.9) Not Available [facility] 4 03:21:08 Nasal congestion 07036567 Active 2021 Nasal congesti on; Note: Date Diagnose d: 11/09/2021 2:16 PM (R09.81) Not Available [facility] 4 03:21:09 Chronic rhinitis 01925228 Active 2021 Chronic rhinitis ; Note: Date Diagnose d: 11/09/2021 2:16 PM (J31.0) Not Available [facility] 4 03:21:09 Problem Notes None recorded. Procedures Surgical History Date Name Laterality Status Provider Name and Address Organization Details Recorded Time cholecystectomy completed Jada Cardona [place] [facility] 03/21/2024 15:07:01 Imaging Results None recorded. Procedure Notes None recorded. Medical Equipment None Reported. Allergies No known drug allergies Medications Name Sig Start Date Stop Date Status Note LastModified by Organization Details LastModified Time budesonid e 32 mcg/actua tion nasal spray [place] 2 spray into both nostrils once a day 03/21 completed Medicati on ID: [id number] D uration Value: 30 Brand Name: budesoni de Send Method: E-Prescr ibed Sub s Allowed: subs OK Medic ationGen ericName : budesoni de Not Available Not Available Not Available Evista 60 mg tablet 04/19 completed Medicati on ID: [id number] Br and Name: Evista S end Method: E-Prescr ibed Sub s Allowed: subs OK Medic ationGen ericName : Evista Not Available Not Available Not Available Saline Mist 0.65 % nasal spray aerosol [place] 2 spray into both nostrils four times a day 03/21 completed Medicati on ID: [id number] D uration Value: 30 Brand Name: Saline [...] mg tablet 04/19 completed Medicati on ID: [id number] Du ration Value: 5 Brand Name: butalbit [...] mg capsule 04/19 completed Medicati on ID: [id number] Du ration Value: 30 Brand Name: diphenhy [...] as directed 03/21 completed Medicati on ID: [id number] D uration Value: 30 Brand Name: telmastbebeto ne Send Method: E-Prescr ibed Sub s [...] mg tablet 04/19 completed Medicati on ID: [id number] Br and Name: Augmenti n Send Method: [...] mg tablet 03/21 [place] Medicati on ID: [id number] Du ration Value: 30 Brand Name: Edi [...] SNOMED-CT Code Diagnosis ICD10 Code Diagnosis Note [id number] CHASTITY MACE MD [facility] of [address] [address] 03/21/2024 14:57:13 03/21/2024 15:41:42 Nasal congestion 61089081 R09.81 Health Concerns Section Related Observation LastModified by Organization Detai ls LastModified Time None Recorded Concern Status LastModified by Organization Details LastModified Time None Recorded Payers Encounter Date Sequence Insurance Name Policy Number Policy Stephen Covered Member ID Stephen Member ID Guarantor Name 03/21/2024 1 [facility]MEDICAID HMO) [employer] Gabriel [id number] Bonita Gabriel Notes Date Note Type Note Provider Name and Address Organization Details Recorded Time 03/21/19 25 text/htm l Amharic - friend is translatingsinusrequesting refill of nose spray PV 05/18/22 Graciela - allergy testing negative, CT sinus clear. rx trial [email or web address] no relief of chronic nasal congestion, rhinitis with budesonide, nasal saline, azelastine CHASTITY MACE MD [address] [place] [address], [place], [address], [place] [facility] 03/21/2024 15:41:41 OBGyn Episode No OBEpisode recorded.
== END ==
LOC: HO.NUCMED 08:05
PROVIDERS: PCP Internal Medicine; Visit Provider Internal Medicine
DX: R10.9 Unspecified abdominal pain (principal); R14.0 Abdominal distension (gaseous)
CPT/HCPCS: 78264; A9541

== ENCOUNTER → 2024-04-08 08:08 | Outpatient (BNV) | payer OTHER, SELFPAY | PROVIDERS: PCP Internal Medicine; Visit Provider Radiology Diagnostic Radiology | DX: R10.9 Unspecified abdominal pain (principal) | CPT/HCPCS: 78264 ==

== ENCOUNTER 2024-04-17 08:58 | Day surgery (SDC) | payer OTHER, SELFPAY ==
--- NOTE | 2024-04-16 09:30 | P.CONAN_ITS ---
HPI - Anesthesia Eval Consult details Narrative: 63yo F for ?Upper Endoscopy s/p same 02/2024 with TIVA PMFSH Active Problems Active Problems: All Active Problems Delayed gastric emptying (Acute) Obesity (Acute) H/O colonoscopy (Acute) Bloating (Acute) Abdominal pain (Acute) Overactive bladder (Acute) Postmenopausal (Acute) Feeling of incomplete bladder emptying (Acute) Urethral caruncle (Acute) High serum bone-specific alkaline phosphatase (Acute) Family history- stomach cancer (Acute) Elevated alkaline phosphatase level (Acute) Mixed incontinence (Acute) Otitis media (Acute) Elevated LFTs (Acute) Weakness (Acute) Sinusitis (Acute) Multinodular thyroid (Acute) UTI (urinary tract infection), bacterial (Acute) IBS (irritable bowel syndrome) (Acute) Hyperthyroidism (Acute) Cough (Acute) Frontal sinusitis (Acute) Chills (Acute) Annual physical exam (Acute) Nephrolithiasis (Acute) Allergic rhinitis (Acute) Allergic reaction (Acute) Acute sinusitis (Acute) Normal Pap smear (Acute) Anxiety (Acute) Hyperglycemia (Acute) Hyperlipidemia (Acute) HTN (hypertension) (Acute) Viral syndrome (Acute) Thumb injury (Acute) Past Medical History Medical History (Updated 03/17/24 @ 10:27 by Moni James MD) Multinodular thyroid Annual physical exam Normal Pap smear Anxiety Hyperglycemia HTN (hypertension) Osteopenia Nephrolithiasis Atypical hyperplasia of breast Depression Migraine headache Chronic GERD Hyperlipidemia Family History Family History Father Cancer Mother No problems noted. Family history of problems with anesthesia: No Surgical History Surgical History (Updated 03/10/24 @ 11:54 by Zaida Kirby MD) H/O colonoscopy History of esophagogastroduodenoscopy (EGD) Status post breast reduction History of hysterectomy Hx of cholecystectomy History of Problems with Anesthesia: No Social History Social History Household Members Other:: townhouse Housing: Apartment Are you a primary pulmonary care nurse to a significant other at home: No Do you presently have visiting nurse or other home services: No Patient Tobacco Use Status: Never used Tobacco e-Cigarette/Vaping Use: Never Used Second Hand Smoke Exposure: No service: No Current occupational status: unemployed Current occupational exposures/hazards: No Cognitive needs: No Hearing needs: No Vision needs: Yes Meds Allergies Allergy/AdvReac Type Severity Reaction Status Date / Time No Known Allergies Allergy Verified 03/17/24 09:55 [No Known Allergies*] Home Medications ?Medication ?Instructions ?Recorded ?Confirmed ?Last Taken ?Type methimazole 10 mg tablet 10 mg PO DAILY 08/10/22 03/10/24 Unknown History ipratropium bromide 21 mcg (0.03 intranasal 08/11/22 03/10/24 Unknown History %) nasal spray albuterol sulfate 90 mcg/actuation inhalation 05/23/23 03/10/24 Unknown History aerosol inhaler (Ventolin HFA) lorazepam 1 mg tablet 1 mg PO TID PRN 03/17/24 Unknown History zolpidem 5 mg tablet (Ambien) 5 mg PO BEDTIME 03/17/24 Unknown History Exam Narrative Narrative: EKG 10/2023 NSR @ 78 Assessment and Plan Assessment Anesthesia Assessment: Chart Reviewed Final Anesthetic Review Family History of Problems with Anesthesia: No History of Problems with Anesthesia: No
--- NOTE | 2024-04-17 09:21 | MHC.SHP ---
Pre-Procedural Eval Section A - 24 Hr Update-Section A only Date of Service: 04/17/24 The patient is an INPATIENT: No The patient has been examined within 24 hours of the surgical procedure. The History & Physical has been completed within 30 days and I have reviewed it.: Yes Section B - Complete if H&P > 30 days Chief Complaint: Abdominal distension (gaseous) Allergies: Allergies Allergy/AdvReac Type Severity Reaction Status Date / Time No Known Allergies Allergy Verified 03/17/24 09:55 [No Known Allergies*] Plan Diagnosis/Plan: Unchanged I have reviewed the history and physical and performed a pertinent physical examination on my patient. No changes have occurred unless specified. GES normal. Time Spent With Patient Time: Total time managing care of this patient today ____ minutes.
--- OUTSIDE RECORDS SUMMARY | 2024-04-17 09:24 | XMS_ITS | Clinical Summary ---
Author Organization [facility] Address [address] [place] [address] Care Team Providers Care Sheet Metal Duct Installer Name Role Phone Unavailable Primary Care Provider [...] Plan of Treatment Not on file [place] [facility] DENTAL [facility] [place] [id number]
--- OUTSIDE RECORDS SUMMARY | 2024-04-17 09:24 | XMS_ITS | Encounter Summary ---
Author Organization [facility] Address [address] [facility] [address] [facility] [address] [place] [address] Care Team Providers Care Air And Missile Defense Crewmember Name Role Phone Unavailable Primary Care Provider Unavailabl e Encounter Details Date Type Department Care Team (Latest Contact Info) Description 02/17/2019 Abstract [facility] CONVERSIONS Dental, Provider, DDS Social History Tobacco [...]
--- OUTSIDE RECORDS SUMMARY | 2024-04-17 09:24 | XMS_ITS | Data Portability ---
Author Organization [place] - [facility], Allergy Address [address] [address] Care Team Providers Care Detail Assembler Name Role Phone [email or web address] Primary Care Provider [...] mcg (0.03 %) nasal spray 2024 025 [facility]/Pharmacy #[id number], [address] [place], [address], 15:41:32 Patient TargetsNo targets recorded. Patient InstructionsNo instructions recorded. Reason for Referral None Reported. Problems Name Problem SNOMED Code Status Onset Date Resolution Date Notes Provider Name and Address Organization Details Recorded Time Acute sinusitis 02974092 Active 2013 Acute sinusiti s; Note: Date Diagnose d: 01/23/20 14 10:45 AM (461.9) Not Available [facility] 4 03:21:08 Nasal congestion 08804907 Active 2021 Nasal congesti on; Note: Date Diagnose d: 11/09/2021 2:16 PM (R09.81) Not Available [facility] 4 03:21:09 Chronic rhinitis 85512400 Active 2021 Chronic rhinitis ; Note: Date Diagnose d: 11/09/2021 2:16 PM (J31.0) Not Available [facility] 4 03:21:09 Problem Notes None recorded. Procedures Surgical History Date Name Laterality Status Provider Name and Address Organization Details Recorded Time cholecystectomy completed Jada Cardona [place] [facility] 03/21/2024 15:07:01 Imaging Results None recorded. Procedure Notes None recorded. Medical Equipment None Reported. Allergies No known drug allergies Medications Name Sig Start Date Stop Date Status Note LastModified by Organization Details LastModified Time budesonid e 32 mcg/actua tion nasal spray [place] 2 spray into both nostrils once a day 03/21 completed Medicati on ID: [id number] D uration Value: 30 Brand Name: budandra de Send Method: E-Prescr ibed Sub s Allowed: subs OK Medic ationGen ericName : budesoni de Not Available Not Available Not Available Evista 60 mg tablet 04/19 completed Medicati on ID: [id number] Br and Name: Evista S end Method: E-Prescr ibed Sub s Allowed: subs OK Medic ationGen ericName : Evista Not Available Not Available Not Available Saline Mist 0.65 % nasal spray aerosol [place] 2 spray into both nostrils four times a day 03/21 completed Medicati on ID: [id number] D uration Value: 30 Brand Name: Saline [...] mg tablet 04/19 completed Medicati on ID: [id number] Du ration Value: 5 Brand Name: butalbit [...] mg capsule 04/19 completed Medicati on ID: [id number] Du ration Value: 30 Brand Name: diphenhy [...] as directed 03/21 completed Medicati on ID: [id number] D uration Value: 30 Brand Name: chilango [...] mg tablet 04/19 completed Medicati on ID: [id number] Br and Name: Augmenti n Send Method: [...] mg tablet 03/21 completed Medicati on ID: [id number] Du ration Value: 30 Brand Name: Edi [...] SNOMED-CT Code Diagnosis ICD10 Code Diagnosis Note [id number] CHASTITY MACE MD [facility] of [address] [address] 03/21/2024 14:57:13 03/21/2024 15:41:42 Nasal congestion 14246081 R09.81 Health Concerns Section Related Observation LastModified by Organization Detai ls LastModified Time None Recorded Concern Status LastModified by Organization Details LastModified Time None Recorded Advance Directives Directive None Recorded Payers Encounter Date Sequence Insurance Name Policy Number Policy Stephen Covered Member ID Stephen Member ID Guarantor Name 03/21/2024 1 [facility] - HEALTH NET PLAN (MEDICAID HMO) [employer] Gabriel [id number] Bonita Gabriel Notes Date Note Type Note Provider Name and Address Organization Details Recorded Time 03/21/19 25 text/htm l Marshallese - friend is translatingsinusrequesting refill of nose spray PV 05/18/22 Graciela - allergy testing negative, CT sinus clear. rx trial [email or web address] no relief of chronic nasal congestion, rhinitis with budesonide, nasal saline, azelastine CHASTITY MACE MD [address] [place] [address], [place], [address], [place] [facility] 03/21/2024 15:41:41 OBGyn Episode No OBEpisode recorded.
--- OUTSIDE RECORDS SUMMARY | 2024-04-17 09:24 | XMS_ITS | Encounter Summary ---
Author Organization [facility] Address [address] [facility] [address] [place] [address] Care Team Providers Care Splicing Technician Name Role Phone Unavailable Primary Care Provider Unavailabl e Encounter Details Date Type Department Care Team (Latest Contact Info) Description 08/12/2018 Abstract [facility] CONVERSIONS Dental, Provider, DDS Social History [...]
--- OUTSIDE RECORDS SUMMARY | 2024-04-17 09:24 | XMS_ITS | Clinical Summary ---
Author Organization [employer] Address [address] [facility] [address] [place] [address] Care Team Providers Care Sample Maker Name Role Phone Unavailable Primary Care Provider [...]
--- OUTSIDE RECORDS SUMMARY | 2024-04-17 09:24 | XMS_ITS | Clinical Summary ---
Author Organization [facility] Address [address] [place] [address] Phone Care Team Providers Care Machine Operator Farmworker Name Role Phone Zaida Kirby MD Primary Care Provider [phone] Surgical History Surgery Date Site/Laterality Comments CHOLECYSTECTOMY 2013 PROCEDURE: CT CHOLECYSTECTOMY Medical History Medical History Date Comments Anxiety state DX:Anxiety state Depressive disorder DX:Depressiv e disorder Family History Relation Name Status Comments Father Mother Social History Tobacco Use Types Packs/Day Years Used Date Smoking Tobacco: Former Smokeless Tobacco: Former Alcohol Use Standard Drinks/Week Comments No 0 (1 standard drink = 0.6 oz pur e alcohol) Comments Unknown Sex and Gender Information Value Date Recorded Sex Assigned at Not on file Legal Sex Female 12:17 AM EST Gender Identity Not on file Sexual Orientation Not on file Obstetrics History Plan of Treatment Health Maintenance Due Date Last Done Comments Breast Cancer Screening 1960 DTaP,Tdap,and Td Vaccines (1 - Tdap) 10/01/1979 Cervical Cancer Screening: P ap Smear 1981 Pneumococcal Vaccine: 50+ Ye ars (1 of 1 - PCV) 2010 Zoster Vaccines (1 of 2) 2010 Colorectal Cancer Screening: Colonoscopy 02/05/2022 Depression Screening 02/05/2022 HIV Screening 02/05/2022 Hepatitis C Screening 02/05/2022 Social Influencers of Health Screening 02/05/2022 COVID-19 Vaccine (1 - 2023-2 5 season) 2023 Influenza Vaccine [...] patient's age to complete this topic Meningococcal B Vacine Aged Out No lo nger eligible based on patient's age to complete [...] to direct LDL (03/06/2024 11:22 AM EST) Pathologist [facility] Cholesterol 145 0 - 200 mg/dL LAB CHEMISTRY METHOD 03/06/2024 2:07 PM EST [facility] Triglycerides 82 0 - 150 mg/dL LAB CHEMISTRY METHOD 03/06/2024 2:07 PM [facility] HDL 57 >=40 mg/dL LAB CHEMISTRY METHOD 03/06/2024 2:07 PM [facility] LDL Calculated 72 0 - 100 mg/dL LAB CHEMISTRY METHOD 03/06/2024 2:07 PM [facility] VLDL Cholesterol Jay 16.4 mg/dL LAB CHEMISTRY METHOD 03/06/2024 2:07 PM [facility] Non HDL Chol. (LDL+VLDL) 88 <145 mg/dL LAB CHEMISTRY METHOD 03/06/2024 2:07 PM [facility] Chol/HDL Ratio 2.5 0.0 - 4.4 LAB CHEMISTRY METHOD 03/06/2024 2:07 PM [facility] Blood Venous blood specimen / Unknown Venipuncture / Unknown 03/06/2024 11:22 AM EST 03/06/2024 1:43 PM EST us Zaida Kirby MD LAB BLOOD ORDERABLES Final Resu lt [facility] [address] [place] [address], * CBC auto differential (03/06/2024 11:22 AM EST) [facility] WBC 8.9 4.8 - 10.8 K/mcL LAB HEMETOLOGY METHOD 03/06/2024 1:50 PM [facility] RBC 4.80 3.80 - 4.80 M/mcL LAB HEMETOLOGY METHOD 03/06/2024 1:50 PM [facility] Hemoglobin 13.3 11.5 - 16.0 g/dL LAB HEMETOLOGY METHOD 03/06/2024 1:50 PM [facility] Hematocrit 40.9 35.0 - 47.0 % LAB HEMETOLOGY METHOD 03/06/2024 1:50 PM [facility] MCV 85.2 79.0 - 98.0 FL LAB HEMETOLOGY METHOD 03/06/2024 1:50 PM [facility] MCH 27.7 27.0 - 32.0 pcg LAB HEMETOLOGY METHOD 03/06/2024 1:50 PM [facility] MCHC 32.5 32.0 - 37.0 g/dL LAB HEMETOLOGY METHOD 03/06/2024 1:50 PM [facility] RDW 13.4 11.0 - 15.0 % LAB HEMETOLOGY METHOD 03/06/2024 1:50 PM [facility] Platelets 278 130 - 400 K/mcL LAB HEMETOLOGY METHOD 03/06/2024 1:50 PM [facility] MPV 10.5 7.0 - 11.0 FL LAB HEMETOLOGY METHOD 03/06/2024 1:50 PM [facility] NRBC 0.0 <1.0 % LAB HEMETOLOGY METHOD 03/06/2024 1:50 PM [facility] NRBC Absolute 0.00 <0.10 K/mcL LAB HEMETOLOGY METHOD 03/06/2024 1:50 PM [facility] Neutrophils Relative 59.7 % LAB HEMETOLOGY METHOD 03/06/2024 1:50 PM [facility] Lymphocytes Relative 31.3 % LAB HEMETOLOGY METHOD 03/06/2024 1:50 PM [facility] Monocytes Relative 6.4 % LAB HEMETOLOGY METHOD 03/06/2024 1:50 PM [facility] Eosinophils Relative 1.7 % LAB HEMETOLOGY METHOD 03/06/2024 1:50 PM EST [facility] Basophils Relative 0.6 % LAB HEMETOLOGY METHOD 03/06/2024 1:50 PM EST [facility] Immature Granulocytes Relative 0.3 % LAB HEMETOLOGY METHOD 03/06/2024 1:50 PM EST [facility] Neutrophils Absolute 5.33 1.50 - 7.00 K/mcL LAB HEMETOLOGY METHOD 03/06/2024 1:50 PM EST [facility] Lymphocytes Absolute 2.79 1.00 - 5.00 K/mcL LAB HEMETOLOGY METHOD 03/06/2024 1:50 PM EST [facility] Monocytes Absolute 0.57 0.20 - 1.00 K/mcL LAB HEMETOLOGY METHOD 03/06/2024 1:50 PM EST [facility] Eosinophils Absolute 0.15 0.00 - 0.50 K/mcL LAB HEMETOLOGY METHOD 03/06/2024 1:50 PM EST [facility] Basophils Absolute 0.05 0.00 - 0.20 K/mcL LAB HEMETOLOGY METHOD 03/06/2024 1:50 PM EST [facility] Immature Granulocytes Absolute 0.03 0.00 - 0.03 K/mcL LAB HEMETOLOGY METHOD 03/06/2024 1:50 PM EST [facility] Blood Venous blood specimen / Unknown Venipuncture / Unknown 03/06/2024 11:22 AM EST 03/06/2024 1:43 PM EST us Zaida Kirby MD LAB BLOOD ORDERABLES Final Resu lt [facility] [address] [place] [address], * Hemoglobin A1c (03/06/2024 11:22 AM EST) Hemoglobin A1C 5.5 <6.5 % LAB CHEMISTRY METHOD 03/06/2024 9:18 PM [facility] Mean Bld Glu Estim. 111 mg/dL LAB CHEMISTRY METHOD 03/06/2024 9:18 PM [facility] Blood Venous blood specimen / Unknown Venipuncture / Unknown 03/06/2024 11:22 AM EST 03/06/2024 1:43 PM EST us Zaida Kirby MD LAB BLOOD ORDERABLES Final Resu lt [facility] [address] [place] [address], * (ABNORMAL) Comprehensive metabolic panel (03/06/2024 11:22 AM EST) Sodium 141 133 - 145 mmol/L LAB CHEMISTRY METHOD 03/06/2024 2:07 PM [facility] Potassium 4.1 3.5 - 5.5 mmol/L LAB CHEMISTRY METHOD 03/06/2024 2:07 PM [facility] Chloride 110 96 - 110 mmol/L LAB CHEMISTRY METHOD 03/06/2024 2:07 PM [facility] CO2 26 21 - 32 mmol/L LAB CHEMISTRY METHOD 03/06/2024 2:07 PM [facility] Anion Gap 5 3 - 11 LAB CHEMISTRY METHOD 03/06/2024 2:07 PM [facility] Glucose 116(H) 70 - 100 mg/dL LAB CHEMISTRY METHOD 03/06/2024 2:07 PM [facility] BUN 16 5 - 25 mg/dL LAB CHEMISTRY METHOD 03/06/2024 2:07 PM [facility] Creatinine 0.79 0.50 - 1.10 mg/dL LAB CHEMISTRY METHOD 03/06/2024 2:07 PM [facility] eGFR 84 >=60 mL/min/1. 73m2 LAB CHEMISTRY METHOD 03/06/2024 2:07 PM [facility] Comment:Calculation based on the??Chronic Kidney Disease Epidemiology Collaboration (CKD-EPI) equation refit??without adjustment for race. BUN/Creatinine Ratio 20.3 LAB CHEMISTRY METHOD 03/06/2024 2:07 PM [facility] Calcium 9.4 8.5 - 10.5 mg/dL LAB CHEMISTRY METHOD 03/06/2024 2:07 PM [facility] AST (SGOT) 19 10 - 42 unit/L LAB CHEMISTRY METHOD 03/06/2024 2:07 PM [facility] ALT (SGPT) 34 10 - 60 unit/L LAB CHEMISTRY METHOD 03/06/2024 2:07 PM [facility] Alkaline Phosphatase 119 42 - 121 unit/L LAB CHEMISTRY METHOD 03/06/2024 2:07 PM [facility] Total Protein 7.3 6.0 - 8.0 g/dL LAB CHEMISTRY METHOD 03/06/2024 2:07 PM [facility] Albumin 3.9 3.2 - 5.0 g/dL LAB CHEMISTRY METHOD 03/06/2024 2:07 PM [facility] Total Bilirubin 0.7 0.0 - 1.4 mg/dL LAB CHEMISTRY METHOD 03/06/2024 2:07 PM [facility] Blood Venous blood specimen / Unknown Venipuncture / Unknown 03/06/2024 11:22 AM EST 03/06/2024 1:43 PM EST us Zaida Kirby MD LAB BLOOD ORDERABLES Final Resu lt [facility] [address] [place] [address], [place] [phone] from Last 3 Months Insurance [facility] Care Teams Machine Operator Farmworker Relationship Specialty Start Date End Date Zaida Kirby MD PCP - General Internal Medicine 07/17/13
--- OUTSIDE RECORDS SUMMARY | 2024-04-17 09:24 | XMS_ITS | Continuity of Care Document ---
Author Organization [place] - [facility], [facility] Address [address] [place] [address] Care Team Providers Care Steel Rule Inspector Name Role Phone JAYLA RESENDIZ Primary Care Provider Assessment Encounter Date Assessment [...] (0.03 %) nasal spray [address] [facility] #[id number], [address] [place], [address], 15:41:32 Patient TargetsNo targets recorded. Patient InstructionsNo instructions recorded. Reason for Referral None Reported. Problems Name Problem SNOMED Code Status Onset Date Resolution Date Notes Provider Name and Address Organization Details Recorded Time Acute sinusitis 13600882 Active 2013 Acute sinusiti s; Note: Date Diagnose d: 01/23/20 14 10:45 AM (461.9) Not Available Counts include 234 beds at the [facility] 4 03:21:08 Nasal congestion 31740486 Active 2021 Nasal congesti on; Note: Date Diagnose d: 11/09/2021 2:16 PM (R09.81) Not Available Counts include 234 beds at the [facility] 4 03:21:09 Chronic rhinitis 78699671 Active 2021 Chronic rhinitis ; Note: Date Diagnose d: 11/09/2021 2:16 PM (J31.0) Not Available Counts include 234 beds at the [facility] 4 03:21:09 Problem Notes None recorded. Procedures Surgical History Date Name Laterality Status Provider Name and Address Organization Details Recorded Time cholecystectomy completed Jada Cardona [place] [facility] 03/21/2024 15:07:01 Imaging Results None recorded. Procedure Notes None recorded. Medical Equipment None Reported. Allergies No known drug allergies Medications Name Sig Start Date Stop Date Status Note LastModified by Organization Details LastModified Time budesonid e 32 mcg/actua tion nasal spray [place] 2 spray into both nostrils once a day 03/21 completed Medicati on ID: [id number] D uration Value: 30 Brand Name: budesoni de Send Method: E-Prescr ibed Sub s Allowed: subs OK Medic ationGen ericName : budesoni de Not Available Not Available Not Available Evista 60 mg tablet 04/19 completed Medicati on ID: [id number] Br and Name: Evista S end Method: E-Prescr ibed Sub s Allowed: subs OK Medic ationGen ericName : Evista Not Available Not Available Not Available Saline Mist 0.65 % nasal spray aerosol [place] 2 spray into both nostrils four times a day 03/21 completed Medicati on ID: [id number] D uration Value: 30 Brand Name: Saline [...] mg tablet 04/19 completed Medicati on ID: [id number] Du ration Value: 5 Brand Name: butalbit [...] mg capsule 04/19 completed Medicati on ID: [id number] Du ration Value: 30 Brand Name: diphenhy [...] as directed 03/21 completed Medicati on ID: [id number] D uration Value: 30 Brand Name: telmastbebeto [...] mg tablet 04/19 completed Medicati on ID: [id number] Br and Name: Augmenti n Send Method: [...] mg tablet 03/21 completed Medicati on ID: [id number] Du ration Value: 30 Brand Name: Edi [...] SNOMED-CT Code Diagnosis ICD10 Code Diagnosis Note [id number] CHASTITY MACE MD [facility] [address] [address] 03/21/2024 14:57:13 03/21/2024 15:41:42 Nasal congestion 55456283 R09.81 Health Concerns Section Related Observation LastModified by Organization Detai ls LastModified Time None Recorded Concern Status LastModified by Organization Details LastModified Time None Recorded Payers Encounter Date Sequence Insurance Name Policy Number Policy Stephen Covered Member ID Stephen Member ID Guarantor Name 03/21/2024 1 [facility] (MEDICAID HMO) MEDHAT Gabriel [id number] Bonita Gabriel Notes Date Note Type Note Provider Name and Address Organization Details Recorded Time 03/21/19 25 text/htm l Nepali - friend is translatingsinusrequesting refill of nose spray PV 05/18/22 Graciela - allergy testing negative, CT sinus clear. rx trial [email or web address] no relief of chronic nasal congestion, rhinitis with budesonide, nasal saline, azelastine CHASTITY MACE MD [address] [place] [address], [place], [address], [place] - [facility] 03/21/2024 15:41:41 OBGyn Episode No OBEpisode recorded.
[2024-04-17] MEDS: Lactated Ringers 1,000 ML 100 ML IVCONT (09:26)
[2024-04-17 09:33] VITALS: BP 128/49; PULSE 79; RESP 18; TEMP 36.7; O2SAT 96; BMI 33.6
[2024-04-17 10:06] VITALS: BP 95/46; PULSE 80; RESP 15; TEMP 36.1; O2SAT 94
--- NOTE | 2024-04-17 10:09 | P.OP_ITS ---
Operative Note Operative Note Date of Service: 04/17/24 Narrative: Procedure: Esophagogastroduodenoscopy Endoscopist: Moni James MD Indication: Abd pain, fam hx of gastric ca Anesthesia Provider: Dr Kaya Noonan Anesthesia Type: MAC ?? EGD Procedure:?? The procedure, indications, preparation and potential complications were reviewed with the patient with the help of medical office worker, who indicated understanding and gave written informed consent to proceed. A physical exam was performed. The endoscope was introduced through the mouth, and advanced to the second part of duodenum. The mucosa was carefully examined on slow withdrawal of the endoscope. The patient tolerated the procedure well. There were no immediate complications.? ? EGD Findings:? * Esophagus:? A small localized patch of heterotopic gastric mucosa was noted in the upper esophagus. Otherwise, normal mucosa noted in the entire esophagus. The Z line was at 36 cm and irregular up to 35 cm. Cold forceps biopsies were taken to rule out Gale's esophagus. * Stomach:?Mild erythema noted in antrum. Retroflexion was performed at the cardia. Cold forceps biopsies were taken as per Celi protocol for gastric mapping to screen for gastric cancer. * Duodenum:? Normal mucosa was noted in the whole of the examined duodenum. Cold forceps biopsies were taken from the duodenal bulb and second portion of the duodenum to rule out celiac sprue. Additional intervention: Soft tip Savary wire was introduced through the biopsy channel of the gastroscope and advanced to the antrum. ?The gastroscope was then backed out. ?Savary Marilynn bougie was advanced over the guidewire and the esophagus was dilated to 18 mm with resistance felt. ?On relook, no heme or tear was noted. ? ? EGD Impressions:? * Inlet patch * Normal esophagus (dilation) * Irregular Z-line (biopsy) * Gastritis (biopsy) * Normal duodenum (biopsy) ?? Recommendations:?? * Continue Nexium daily * Follow-up path results * H pylori will be treated if biopsies positive * If no gastric intestinal metaplasia or dysplasia noted on path, no further screening EGDs recommended.
[2024-04-17 10:18] VITALS: BP 106/53; PULSE 76; RESP 15; TEMP 36.1; O2SAT 95
== END 2024-04-17 10:38 | disposition home or self-care (01) ==
PROVIDERS: PCP Internal Medicine; Visit Provider Internal Medicine
PROC: 0DJ08ZZ Inspection of Upper Intestinal Tract, Via Natural or Artificial Opening Endoscopic (ICD-10-PCS; CPT 43235; principal; 2024-04-17 11:00)
DX: R14.0 Abdominal distension (gaseous) (principal); R10.9 Unspecified abdominal pain; K30 Functional dyspepsia; R14.2 Eructation; Z80.0 Family history of malignant neoplasm of digestive organs; K29.50 Unspecified chronic gastritis without bleeding; K22.89 Other specified disease of esophagus; Q39.8 Other congenital malformations of esophagus; E05.00 Thyrotoxicosis with diffuse goiter without thyrotoxic crisis or storm; I10 Essential (primary) hypertension; E78.5 Hyperlipidemia, unspecified; R73.9 Hyperglycemia, unspecified; F32.A Depression, unspecified; F41.9 Anxiety disorder, unspecified; G43.909 Migraine, unspecified, not intractable, without status migrainosus; M85.80 Other specified disorders of bone density and structure, unspecified site; E66.9 Obesity, unspecified; Z68.33 Body mass index [BMI] 33.0-33.9, adult; Z79.899 Other long term (current) drug therapy; Z90.49 Acquired absence of other specified parts of digestive tract; Z98.890 Other specified postprocedural states; Z56.0 Unemployment, unspecified; Z87.891 Personal history of nicotine dependence
CPT/HCPCS: 43248; 43239; 88305; 88313; 88342; C1769; J2003; J2704

== ENCOUNTER → 2024-04-17 08:58 | Outpatient (BNV) | payer OTHER, SELFPAY | PROVIDERS: PCP Internal Medicine; Visit Provider Internal Medicine | DX: K29.70 Gastritis, unspecified, without bleeding (principal); K20.90 Esophagitis, unspecified without bleeding; Z80.0 Family history of malignant neoplasm of digestive organs; K22.89 Other specified disease of esophagus | CPT/HCPCS: 43239; 43249 ==

== ENCOUNTER → 2024-05-12 13:10 | Outpatient (BNVA) | payer OTHER, SELFPAY | PROVIDERS: PCP Internal Medicine; Visit Provider Internal Medicine | DX: R09.A2 Foreign body sensation, throat (principal); R10.9 Unspecified abdominal pain; R74.8 Abnormal levels of other serum enzymes; K31.A0 Gastric intestinal metaplasia, unspecified; E21.3 Hyperparathyroidism, unspecified; Z86.0100 Personal history of colon polyps, unspecified | CPT/HCPCS: 99212 ==

== ENCOUNTER 2024-08-29 08:33 | Outpatient (AMB) | payer OTHER, SELFPAY ==
[2024-08-29 08:34] VITALS: BP 122/66; PULSE 85; TEMP 36.8; O2SAT 97; BMI 34.4
--- NOTE | 2024-08-29 08:34 | MHC.OFFWIV ---
Intake Vital Signs 08/29/24 08:34 Height 5 ft 6 in Weight 213 lb BMI 34.4 BP 122/66 Blood Pressure Location Rt brachial Position Sitting Pulse 85 Pulse Source Pulse Oximeter Temp 98.2 F Temp Source Oral Pulse Oximetry (%) 97 Oxygen Delivery Method Room Air Intake Visit Reasons: EP Nausea, cold, sore throat, body aches Intake Note: patient presents with nausea, headach, body chills, sore throat, ear pain, productive cough x1 days Patient Tobacco Use Status: Former Tobacco user Allergies No Known Allergies (No Known Allergies*) Allergy (Verified 08/29/24 08:34) Do you need a note to return to daycare/school/sports/work: No HPI HPI Comments History of Present Illness Details 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 History - The patient is a 63-year-old female presenting with nausea and possible influenza symptoms. - Nausea began two days ago, with no associated vomiting or diarrhea. Also has a headache, cough and congestion. - No fever reported, but the patient experienced chills and a sensation of coldness. - Patient has not taken any medications except Tylenol for symptom management. - Denies sinus or ear pain. Physical Exam General: Cooperative, healthy appearing, comfortable and no acute distress Orientation/consciousness: Patient oriented x3 Limitations: No limitations Head: Normal to inspection Ears: Fluid present in ears, hearing grossly normal bilaterally, external ears normal and TM's normal bilaterally Nose: Normal external nose present, Normal nares present and No nasal discharge present Face and sinus: Normal facial exam and Yes sinuses nontender Mouth: Normal oral and palatal mucosa present and moist mucous membranes Throat: Yes tonsils normal, Yes uvula midline. Posterior oropharynx erythema, no exudates Eyes: Appearance normal, both eyes and all related structures Neck: Normal visual inspection, full ROM Respiratory: Clear to auscultation bilaterally. Normal respiratory effort, able to speak in complete sentences, Actively coughing, no respiratory distress, not tachypneic, no tripod positioning and no use of accessory muscles Cardiovascular: Regular rate and rhythm. Normal S1 and S2 Skin: No rashes or lesions noted Neuro: Patient oriented x3 Extremities: Normal to inspection and Yes no clubbing, cyanosis or edema [facility] Medical History (Updated 08/29/24 @ 08:57 by Ramila James PA-C) IBS (irritable bowel syndrome) Overactive bladder Hyperthyroidism Multinodular thyroid Annual physical exam Normal Pap smear Anxiety Hyperglycemia HTN (hypertension) Osteopenia Nephrolithiasis Atypical hyperplasia of breast Depression Migraine headache Chronic GERD Hyperlipidemia Surgical History H/O colonoscopy History of esophagogastroduodenoscopy (EGD) Status post breast reduction History of hysterectomy Hx of cholecystectomy Family History Father Cancer Mother No problems noted. Social History Household Members Other:: [facility] Housing: Apartment Are you a primary home care aide to a significant other at home: No Do you presently have visiting nurse or other home services: No Patient Tobacco Use Status: Former Tobacco user e-Cigarette/Vaping Use: Never Used Second Hand Smoke Exposure: No service: No Current occupational status: unemployed Current occupational exposures/hazards: No Cognitive needs: No Hearing needs: No Vision needs: Yes Review of Systems Const All systems reviewed & are unremarkable except as noted in HPI and below Physical Exam Vital Signs: Last Vital Signs Temp 98.2 F 08/29/24 08:34 Pulse 85 08/29/24 08:34 BP 122/66 08/29/24 08:34 Pulse Ox 97 08/29/24 08:34 Oxygen Delivery Method Room Air 08/29/24 08:34 BMI result Body Mass Index 34.4 Office Meds ondansetron 4 mg disintegrating tablet Performing Provider: Ramila James PA-C Performing Location: [facility] Administered by: Ramila James PA-C on 08/29/24 08:58 Dose Route Admin Location Dispensed Lot Number Expiration Date [facility] [employer] Laminating Machine Feeder 4 mg translingual 4 mg 07/02/25 [id number] [facility] Results AMB Rapid Strep AMB Rapid Strep Negative Last Edit by Koby Bansal CMA on 08/29/24 08:51 Assessment & Plan Assessment & Plan (1) Acute viral syndrome: Code(s): B34.9 - Viral infection, unspecified Plan: Plan - VSS, pt well appearing and PE unremarkable. - Rapid strep is negative - Administered antinausea medication in-office and prescribed additional doses to be picked up at the pharmacy. - Recommended hydration with water and Gatorade, and advised a bland diet to ease gastrointestinal discomfort. - Prescribed Tessalon Perles for cough suppression, to be used primarily at night to prevent pneumonia. - Pending results from influenza, COVID-19, and RSV swabs; potential prescription of Tamiflu or Paxlovid based on results. - we discussed the side effects of Tamiflu and Paxlovid and patient will decide if she would like either 1 of these medications if she does test positive for either 1 of them when we call her with the results. - Advised continued use of Tylenol for headache management, with specific dosing instructions provided. Patient was informed and verbally consented to the use of an ambient scribe for clinic note documentation during this visit Orders: Orders AMB Ondansetron Adult Dose Today B34.9 - Viral infection, unspecified AMB Rapid Strep Screen Today Z13.9 - Encounter for screening, unspecified SARS-CoV2/FLU/RSV Today R09.89 - Other specified symptoms and signs involving the circulatory and respiratory systems Medications: New ondansetron 4 mg PO Q8H PRN 10 tabs 0RF nausea and vomiting benzonatate 200 mg PO BEDTIME PRN 10 caps 0RF cough Coding Level of Care Code Est Pt Level 4 (38558) Diagnoses Acute viral syndrome B34.9
--- OUTSIDE RECORDS SUMMARY | 2024-08-29 08:43 | XMS_ITS | Data Portability ---
Author Organization [place] - [facility], Allergy Address [address] [address] Care Team Providers Care Summer Camp Counselor Name Role Phone JAYLA RESENDIZ Primary Care Provider [phone] Assessment Encounter Date Assessment Date Assessment LastModified [...] mcg (0.03 %) nasal spray 2024 025 [facility]/Pharmacy #[id number], [address] [place], [address], 15:41:32 Patient TargetsNo targets recorded. Patient InstructionsNo instructions recorded. Reason for Referral None Reported. Problems Name Problem SNOMED Code Status Onset Date Resolution Date Notes Provider Name and Address Organization Details Recorded Time Acute sinusitis 30066427 Active 2013 Acute sinusiti s; Note: Date Diagnose d: 01/23/20 14 10:45 AM (461.9) Not Available [facility] 4 03:21:08 Nasal congestion 90485897 Active 2021 Nasal congesti on; Note: Date Diagnose d: 11/09/2021 2:16 PM (R09.81) Not Available [facility] 4 03:21:09 Chronic rhinitis 89709006 Active 2021 Chronic rhinitis ; Note: Date Diagnose d: 11/09/2021 2:16 PM (J31.0) Not Available [facility] 4 03:21:09 Problem Notes None recorded. Procedures Surgical History Date Name Laterality Status Provider Name and Address Organization Details Recorded Time cholecystectomy completed Jada Cardona [place] [facility] 03/21/2024 15:07:01 Imaging Results None recorded. Procedure Notes None recorded. Medical Equipment None Reported. Allergies No known drug allergies Medications Name Sig Start Date Stop Date Status Note LastModified by Organization Details LastModified Time budesonid e 32 mcg/actua tion nasal spray [place] 2 spray into both nostrils once a day 03/21 completed Medicati on ID: [id number] D uration Value: 30 Brand Name: budesoni de Send Method: E-Prescr ibed Sub s Allowed: subs OK Medic ationGen ericName : budesoni de Not Available Not Available Not Available Evista 60 mg tablet 04/19 completed Medicati on ID: [id number] Br and Name: Evista S end Method: E-Prescr ibed Sub s Allowed: subs OK Medic ationGen ericName : Evista Not Available Not Available Not Available Saline Mist 0.65 % nasal spray aerosol [place] 2 spray into both nostrils four times a day 03/21 completed Medicati on ID: [id number] D uration Value: 30 Brand Name: Saline [...] mg tablet 04/19 completed Medicati on ID: [id number] Du ration Value: 5 Brand Name: butalbit [...] mg capsule 04/19 completed Medicati on ID: [id number] Du ration Value: 30 Brand Name: diphenhy [...] as directed 03/21 completed Medicati on ID: [id number] D uration Value: 30 Brand Name: telmastbebeto [...] mg tablet 04/19 completed Medicati on ID: [id number] Br and Name: Augmenti n Send Method: [...] mg tablet 03/21 completed Medicati on ID: [id number] Du ration Value: 30 Brand Name: Edi [...] SNOMED-CT Code Diagnosis ICD10 Code Diagnosis Note [id number] CHASTITY MACE MD [facility] [address] [address] 03/21/2024 14:57:13 03/21/2024 15:41:42 Nasal congestion 02951845 R09.81 Health Concerns Section Related Observation LastModified by Organization Detai ls LastModified Time None Recorded Concern Status LastModified by Organization Details LastModified Time None Recorded Advance Directives Directive None Recorded Payers Insurance Date Sequence Insurance Name Policy Number Policy Stephen Covered Member ID Stephen Member ID Guarantor Name 03/21/2024 1 MEDICAID-[place]: [facility] Bonita Gabriel [id number] Bonita Gabriel 03/21/2024 1 [employer] [employer] - HEALTH NET PLAN (MEDICAID HMO) MEDHAT Gabriel [id number] Bonita Gabriel Notes Date Note Type Note Provider Name and Address Organization Details Recorded Time 03/21/19 25 text/htm l Latvian - friend is translatingsinusrequesting refill of nose spray PV 05/18/22 Graciela - allergy testing negative, CT sinus clear. rx trial [email or web address] no relief of chronic nasal congestion, rhinitis with budesonide, nasal saline, azelastine CHASTITY MACE MD [address] [place] [address], [place], [address], [place] - [facility] 03/21/2024 15:41:41 OBGyn Episode No OBEpisode recorded.
== END 2024-08-29 09:16 | disposition home or self-care (01) ==
PROVIDERS: PCP Internal Medicine; Visit Provider Physician Assistant
DX: Z13.9 Encounter for screening, unspecified (principal); B34.9 Viral infection, unspecified

== ENCOUNTER 2024-08-29 08:33 | Outpatient (REF) | payer OTHER, SELFPAY ==
[2024-08-29 11:09] LABS: Influenza A PCR NEGATIVE (Negative); Influenza B PCR NEGATIVE (Negative); Resp Syncy Virus RNA Qual PCR NEGATIVE (Negative); SARS COV2 PCR INHOUSE POSITIVE (Negative)
== END 2024-08-29 08:34 | disposition home or self-care (01) ==
LOC: HO.LAB 08:33
PROVIDERS: PCP Internal Medicine; Visit Provider Physician Assistant
DX: R09.89 Other specified symptoms and signs involving the circulatory and respiratory systems (principal); U07.1 COVID-19
CPT/HCPCS: 0241U; 87880; 99212

== ENCOUNTER 2024-09-04 12:42 | Outpatient (AMB) | payer OTHER, SELFPAY ==
--- OUTSIDE RECORDS SUMMARY | 2024-09-04 12:51 | XMS_ITS | Clinical Summary ---
Author Organization [facility] Address [address] [place] [address] Phone Care Team Providers Care Wire Frame Dipper Name Role Phone Zaida Kirby MD Primary Care Provider [phone] Surgical History Surgery Date Site/Laterality Comments CHOLECYSTECTOMY 2013 PROCEDURE: [place] CHOLECYSTECTOMY Medical History Medical History Date Comments [...] - 2023-2 5 season) 2023 Influenza Vaccine (Season Ended) 2024 Cholesterol Screening (Lipid Panel) 03/06/2029 03/06/2024 RSV Immunization Adult Patie nts (1 - 1-dose 75+ series) 10/01/2035 HIB [...] age to complete this topic Meningococcal B Vaccine Aged Out No l onger eligible based on patient's age to complete [...] Procedure Name Priority Date/Time Associated Diagnosis Comments LIPID PANEL WITH REFLEX TO DIRECT LDL Routine 03/06/2024 11:22 AM EST 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 Hyperlipemia Hyperglycemia from Last 3 Months or Most Recently Relevant to Health Maintenance Results * Lipid panel with reflex to direct LDL (03/06/2024 11:22 AM EST) Cholesterol 145 0 - 200 mg/dL LAB CHEMISTRY METHOD 03/06/2024 2:07 PM [facility] Triglycerides 82 0 - [...] 2:07 PM EST [facility] Chol/HDL Ratio 2.5 0.0 - 4.4 LAB CHEMISTRY METHOD 03/06/2024 2:07 PM EST [facility] Blood Venous blood specimen / Unknown Venipuncture / Unknown 03/06/2024 11:22 AM EST 03/06/2024 1:43 PM EST us Zaida Kirby MD LAB BLOOD ORDERABLES Final Resu lt [facility] [address] [place] [address], from Last 3 Months or Most Recently Relevant to Health Maintenance Insurance [facility] [employer] Care Teams Wire Frame Dipper Relationship Specialty Start Date End Date Zaida Kirby MD PCP - General Internal Medicine 07/17/13
--- OUTSIDE RECORDS SUMMARY | 2024-09-04 12:51 | XMS_ITS | Data Portability ---
Author Organization [place] - [facility], Allergy Address [address] [address] Care Team Providers Care Flight Radio Operator Name Role Phone JAYLA RESENDIZ Primary Care [...] %) nasal spray [address] [facility]/Pharmacy #[id number], [address] [place], [address], 15:41:32 Patient TargetsNo targets recorded. Patient InstructionsNo instructions recorded. Reason for Referral None Reported. Problems Name Problem SNOMED Code Status Onset Date Resolution Date Notes Provider Name and Address Organization Details Recorded Time Acute sinusitis 71643225 Active 2013 Acute sinusiti s; Note: Date Diagnose d: 01/23/20 14 10:45 AM (461.9) Not Available [facility] 4 03:21:08 Nasal congestion 84605814 Active 2021 Nasal congesti on; Note: Date Diagnose d: 11/09/2021 2:16 PM (R09.81) Not Available [facility] 4 03:21:09 Chronic rhinitis 52995230 Active 2021 Chronic rhinitis ; Note: Date Diagnose d: 11/09/2021 2:16 PM (J31.0) Not Available [facility] 4 03:21:09 Problem Notes None recorded. Procedures Surgical History Date Name Laterality Status Provider Name and Address Organization Details Recorded Time cholecystectomy completed Jada Cardona [place] [facility] 03/21/2024 15:07:01 Imaging Results None recorded. Procedure Notes None recorded. Medical Equipment None Reported. Allergies No known drug allergies Medications Name Sig Start Date Stop Date Status Note LastModified by Organization Details LastModified Time budesonid e 32 mcg/actua tion nasal spray [place] 2 spray into both nostrils once a day 03/21 completed Medicati on ID: [id number] D uration Value: 30 Brand Name: budesoni de Send Method: E-Prescr ibed Sub s Allowed: subs OK Medic ationGen ericName : budesoni de Not Available Not Available Not Available Evista 60 mg tablet 04/19 completed Medicati on ID: [id number] Br and Name: Evista S end Method: E-Prescr ibed Sub s Allowed: subs OK Medic ationGen ericName : Evista Not Available Not Available Not Available Saline Mist 0.65 % nasal spray aerosol [place] 2 spray into both nostrils four times a day 03/21 completed Medicati on ID: [id number] D uration Value: 30 Brand Name: Saline [...] mg tablet 04/19 completed Medicati on ID: [id number] Du ration Value: 5 Brand Name: butalbit [...] mg capsule 04/19 completed Medicati on ID: [id number] Du ration Value: 30 Brand Name: diphenhy [...] as directed 03/21 completed Medicati on ID: [id number] D uration Value: 30 Brand Name: telmastbebeto [...] mg tablet 04/19 completed Medicati on ID: [id number] Br and Name: Augmenti n Send Method: [...] mg tablet 03/21 completed Medicati on ID: [id number] Du ration Value: 30 Brand Name: Edi [...] SNOMED-CT Code Diagnosis ICD10 Code Diagnosis Note [id number] CHASTITY MACE MD [facility] [address] [address] 03/21/2024 14:57:13 03/21/2024 15:41:42 Nasal congestion 72470166 R09.81 Health Concerns Section Related Observation LastModified by Organization Detai ls LastModified Time None Recorded Concern Status LastModified by Organization Details LastModified Time None Recorded Advance Directives Directive None Recorded Payers Insurance Date Sequence Insurance Name Policy Number Policy Stephen Covered Member ID Stephen Member ID Guarantor Name 03/21/2024 1 [place]: [facility] Bonita Gabriel [id number] Bonita Gabriel 03/21/2024 1 [employer] - HEALTH NET PLAN (MEDICAID HMO) MEDHAT Gabriel [id number] Bonita Gabriel Notes Date Note Type Note Provider Name and Address Organization Details Recorded Time 03/21/19 25 text/htm l Khmer - friend is translatingsinusrequesting refill of nose spray PV 05/18/22 Graciela - allergy testing negative, CT sinus clear. rx trial [email or web address] no relief of chronic nasal congestion, rhinitis with budesonide, nasal saline, azelastine CHASTITY MACE MD [address] [place] [address], [place], [address], [place] - [facility] 03/21/2024 15:41:41 OBGyn Episode No OBEpisode recorded.
--- OUTSIDE RECORDS SUMMARY | 2024-09-04 12:51 | XMS_ITS | Clinical Summary ---
Author Organization [employer] Address [address] [facility] [address] [place] [address] Care Team Providers Care Business Computers Teacher Name Role Phone Unavailable Primary Care Provider [...] 1960 FIT 1960 FOBT 1960 Sigmoidoscopy 1960 Disability Screening 1960 Alcohol/Substance Use Screening 1972 Tobacco Screening 1972 DTaP/Tdap/Td Vaccines (1 - Tdap) 10/01/1979 Pap Smear 1981 Cervical Cancer Screening 1990 HPV/Cotest 1990 Mammogram 2000 Pneumococcal Vaccine: 50+ Ye ars (1 of 1 - PCV) 2010 Zoster Vaccines (1 of 2) 2010 COVID-19 Vaccine ( - 2023-2 5 season) 2023 Influenza Vaccine (Season Ended) 2024 RSV Patients and Pa tients Aged 60 [...]
--- OUTSIDE RECORDS SUMMARY | 2024-09-04 12:51 | XMS_ITS | Clinical Summary ---
Author Organization [facility] Address [address] [place] [address] Care Team Providers Care Sharepoint Net Developer Name Role Phone Unavailable Primary Care Provider [...] Plan of Treatment Not on file Insurance [place] MEDICAID DENTAL [facility] DENTAL [facility] [place] [id number]
--- NOTE | 2024-09-04 13:26 | AM.OFFWIN_ITS ---
Intake Vital Signs 09/04/24 13:27 Height 5 ft 6 in Weight 209 lb 2 oz BMI 33.7 BP 116/74 Blood Pressure Location Lt brachial Position Sitting Pulse 79 Pulse Source Pulse Oximeter Temp 98.3 F Temp Source Oral Pulse Oximetry (%) 97 Oxygen Delivery Method Room Air Intake Visit Reasons: EP cough Intake Note: Patient presents with cough times 3 days, non productive, no sore throat Patient Tobacco Use Status: Former Tobacco user Children'S Ministry Director Required: No Is last menstrual period known: No Post menopausal: Yes Patient : No Allergies No Known Allergies (No Known Allergies*) Allergy (Verified 08/29/24 08:34) Do you need a note to return to daycare/school/sports/work: No HPI HPI Comments History of Present Illness Details 63 y/o Female patient who presents to [facility] walk in clinic with c/o persistent dry cough. She was tested positive for COVID-19 on 08/29 and prescribed Cough medications. Today Pt continues to have cough and chest pain from couging. Denies fevers, chills, nausea or vomiting. [facility] Medical History (Updated 09/04/24 @ 13:52 by Paola Villavicencio NP) IBS (irritable bowel syndrome) Overactive bladder Hyperthyroidism Multinodular thyroid Annual physical exam Normal Pap smear Anxiety Hyperglycemia HTN (hypertension) Osteopenia Nephrolithiasis Atypical hyperplasia of breast Depression Migraine headache Chronic GERD Hyperlipidemia Surgical History H/O colonoscopy History of esophagogastroduodenoscopy (EGD) Status post breast reduction History of hysterectomy Hx of cholecystectomy Family History Father Cancer Mother No problems noted. Social History Household Members Other:: [facility] Housing: Apartment Are you a primary wound care coordinator to a significant other at home: No Do you presently have visiting nurse or other home services: No Patient Tobacco Use Status: Former Tobacco user e-Cigarette/Vaping Use: Never Used Second Hand Smoke Exposure: No Patient : No service: No Current occupational status: unemployed Current occupational exposures/hazards: No Cognitive needs: No Hearing needs: No Vision needs: Yes Review of Systems Const All systems reviewed & are unremarkable except as noted in HPI and below Physical Exam Vital Signs: Last Vital Signs Temp 98.3 F 09/04/24 13:27 Pulse 79 09/04/24 13:27 BP 116/74 09/04/24 13:27 Pulse Ox 97 09/04/24 13:27 Oxygen Delivery Method Room Air 09/04/24 13:27 BMI result Body Mass Index 33.7 Const General: no acute distress Nutritional Appearance: obese Orientation/consciousness: patient oriented x3 HEENT Head: Yes normocephalic Resp Effort & Inspection: normal respiratory effort, able to speak in complete sentences and Actively coughing Quality: actively coughing Auscultation: clear to auscultation bilaterally, no crackles, no rales, no rhonchi and no wheezes Cardio Heart sounds: S1 normal heart sound present and S2 normal heart sound present Neuro General: patient oriented x3 Assessment & Plan Assessment & Plan (1) Cough: Code(s): R05.9 - Cough, unspecified Qualifiers: Cough type: subacute Qualified Code(s): R05.2 - Subacute cough Plan: Ordered Cough syrup with Codeine Home remedies such as Rashmi Tea with honey. Medications: New zqpugproecksxjr-[id number]-[id number] 30-10-200 mg/5 mL 10 mL PO Q6H 280 mL 0RF cough 7 days R05.2 - Subacute cough Coding Level of Care Code Est Pt Level 4 (87882) Diagnoses Subacute cough R05.2 Cough type: subacute Time Spent (min) 20
[2024-09-04 13:27] VITALS: BP 116/74; PULSE 79; TEMP 36.8; O2SAT 97; BMI 33.7
== END 2024-09-04 14:04 | disposition home or self-care (01) ==
PROVIDERS: PCP Internal Medicine; Visit Provider Nurse Practitioner Family
DX: R05.2 Subacute cough (principal)

== ENCOUNTER → 2024-09-04 12:42 | Outpatient (BNVA) | payer OTHER, SELFPAY | PROVIDERS: PCP Internal Medicine; Visit Provider Nurse Practitioner Family | DX: R05.2 Subacute cough (principal) | CPT/HCPCS: 99212 ==

== ENCOUNTER 2024-09-15 09:11 | Outpatient (REF) | payer OTHER, SELFPAY ==
--- OUTSIDE RECORDS SUMMARY | 2024-09-15 09:30 | XMS_ITS | Clinical Summary ---
Author Organization [employer] Address [address] [facility] 7[address] [place] [address] Care Team Providers Care Planning Associate Name Role Phone Unavailable Primary Care Provider [...] 2023-2 5 season) 2023 Influenza Vaccine (#1) 2024 RSV Patients and Pa tients Aged [...]
--- OUTSIDE RECORDS SUMMARY | 2024-09-15 09:30 | XMS_ITS | Data Portability ---
Author Organization [place] - [facility], Allergy Address [address] [address] Care Team Providers Care Mapping Pilot Name Role Phone JAYLA RESENDIZ Primary Care [...] mcg (0.03 %) nasal spray 2024 025 [facility]/Pharmacy #[id number], [address] [place], [address], 15:41:32 Patient TargetsNo targets recorded. Patient InstructionsNo instructions recorded. Reason for Referral None Reported. Problems Name Problem SNOMED Code Status Onset Date Resolution Date Notes Provider Name and Address Organization Details Recorded Time Acute sinusitis 68529526 Active 2013 Acute sinusiti s; Note: Date Diagnose d: 01/23/20 14 10:45 AM (461.9) Not Available [facility] 4 03:21:08 Nasal congestion 12600677 Active 2021 Nasal congesti on; Note: Date Diagnose d: 11/09/2021 2:16 PM (R09.81) Not Available [facility] 4 03:21:09 Chronic rhinitis 88386735 Active 2021 Chronic rhinitis ; Note: Date Diagnose d: 11/09/2021 2:16 PM (J31.0) Not Available [facility] 4 03:21:09 Problem Notes None recorded. Procedures Surgical History Date Name Laterality Status Provider Name and Address Organization Details Recorded Time cholecystectomy completed Jada Cardona [place] [facility] 03/21/2024 15:07:01 Imaging Results None recorded. Procedure Notes None recorded. Medical Equipment None Reported. Allergies No known drug allergies Medications Name Sig Start Date Stop Date Status Note LastModified by Organization Details LastModified Time budesonid e 32 mcg/actua tion nasal spray [place] 2 spray into both nostrils once a day 03/21 completed Medicati on ID: [id number] D uration Value: 30 Brand Name: budesoni de Send Method: E-Prescr ibed Sub s Allowed: subs OK Medic ationGen ericName : budesoni de Not Available Not Available Not Available Evista 60 mg tablet 04/19 completed Medicati on ID: [id number] Br and Name: Evista S end Method: E-Prescr ibed Sub s Allowed: subs OK Medic ationGen ericName : Evista Not Available Not Available Not Available Saline Mist 0.65 % nasal spray aerosol [place] 2 spray into both nostrils four times a day 03/21 completed Medicati on ID: [id number] D uration Value: 30 Brand Name: Saline [...] mg tablet 04/19 completed Medicati on ID: [id number] Du ration Value: 5 Brand Name: butalbit [...] mg capsule 04/19 completed Medicati on ID: [id number] Du ration Value: 30 Brand Name: diphenhy [...] as directed 03/21 completed Medicati on ID: [id number] D uration Value: 30 Brand Name: telmastbebeto [...] mg tablet 04/19 completed Medicati on ID: [id number] Br and Name: Augmenti n Send Method: [...] mg tablet 03/21 completed Medicati on ID: [id number] Du ration Value: 30 Brand Name: Edi [...] History Nothing Reported. Medical History Condition Response High Cholesterol Y Hypertension Y Gynecological HistoryNo gynecological history recorded. Obstetrics History GPAL:G 0 P 0 0 0 0 Past Encounters Encounter ID Performer Location Encounter Start Date Encounter Closed Date Diagnosis/Indication Diagnosis SNOMED-CT Code Diagnosis ICD10 Code Diagnosis Note [id number] CHASTITY MACE MD [facility] [address] [address] 03/21/2024 14:57:13 03/21/2024 15:41:42 Nasal congestion 41049245 R09.81 Health Concerns Section Related Observation LastModified by Organization Detai ls LastModified Time None Recorded Concern Status LastModified by Organization Details LastModified Time None Recorded Advance Directives Directive None Recorded Payers Insurance Date Sequence Insurance Name Policy Number Policy Stephen Covered Member ID Stephen Member ID Guarantor Name 03/21/2024 1 [place] [facility] Bonita Gabriel [id number] Bonita Gabriel 03/21/2024 1 [employer] [employer] - HEALTH NET PLAN (MEDICAID HMO) MEDHAT Gabriel [id number] Bonita Gabriel Notes Date Note Type Note Provider Name and Address Organization Details Recorded Time 03/21/19 25 text/htm l Arabic - friend is translatingsinusrequesting refill of nose spray PV 05/18/22 Graciela - allergy testing negative, CT sinus clear. rx trial [email or web address].previous no relief of chronic nasal congestion, rhinitis with budesonide, nasal saline, azelastine CHASTITY MACE MD [address] [place] [address], [place], [address], [place] - [facility] 03/21/2024 15:41:41 OBGyn Episode No OBEpisode recorded.
--- OUTSIDE RECORDS SUMMARY | 2024-09-15 09:30 | XMS_ITS | Clinical Summary ---
Author Organization [facility] Address [address] [place] [address] Care Team Providers Care Material Stockkeeper Yard Name Role Phone Unavailable Primary Care Provider [...] Plan of Treatment Not on file Insurance [place] MED[place] DENTAL [facility] DENTAL [facility] [place] [id number]
--- OUTSIDE RECORDS SUMMARY | 2024-09-15 09:30 | XMS_ITS | Clinical Summary ---
Author Organization [facility] Address [address] [place] [address] Phone Care Team Providers Care System Analyst Name Role Phone Zaida Kirby MD Primary Care Provider [phone] Surgical History Surgery Date Site/Laterality Comments CHOLECYSTECTOMY 2013 PROCEDURE: [place] CHOLECYSTECTOMY Medical History Medical History Date Comments [...] 5 season) 2023 Influenza Vaccine (#1) 2024 Cholesterol Screening (Lipid Panel) 03/06/2029 03/06/2024 [...] LAB CHEMISTRY METHOD 03/06/2024 2:07 PM [facility] Triglycerides 82 0 - 150 mg/dL LAB CHEMISTRY METHOD 03/06/2024 2:07 PM [facility] HDL 57 >=40 mg/dL LAB CHEMISTRY METHOD 03/06/2024 2:07 PM [facility] LDL Calculated 72 0 - 100 mg/dL LAB CHEMISTRY METHOD 03/06/2024 2:07 PM [facility] VLDL Cholesterol Jay 16.4 mg/dL LAB CHEMISTRY METHOD 03/06/2024 2:07 PM [facility] Non HDL Chol. (LDL+VLDL) 88 <145 mg/dL LAB CHEMISTRY METHOD 03/06/2024 2:07 PM [facility] Chol/HDL Ratio 2.5 0.0 - 4.4 LAB CHEMISTRY METHOD 03/06/2024 2:07 PM EST [facility] Blood Venous blood specimen / Unknown Venipuncture / Unknown 03/06/2024 11:22 AM EST 03/06/2024 1:43 PM EST us Zaida Kirby MD LAB BLOOD ORDERABLES Final Resu lt [facility] [address] [place] [address], from Last 3 Months or Most Recently Relevant to Health Maintenance Insurance [facility] [employer] Care Teams System Analyst Relationship Specialty Start Date End Date Zaida Kirby MD PCP - General Internal Medicine 07/17/13
[2024-09-15 10:44] LABS: MANUAL DIFF FLAG NO
[2024-09-15 10:48] LABS: Hematocrit 38.6 % (37.0-47.0); Hemoglobin 13.0 g/dl (12.0-16.0); Imm Gran Abs Auto 0.04 X10*3/uL (0.00-0.03); Imm Gran Pct Auto 0.4 % (0.0-0.4); Lymphocytes Absolute Auto 3.5 X10*3/uL (1.2-4.9); Mean Corpuscular HGB Conc 33.7 g/dl (31.0-35.0); Mean Corpuscular Hemoglobin 28.1 pg (27.0-33.0); Mean Corpuscular Volume 83.4 fL (80.0-98.0); NRBC Abs Auto 0.000 X10*3/uL (0.0-0.012); NRBC Pct Auto 0.0 /100WBC (0.0-0.2); Platelet Count 305 X10*3/uL (160-400); Red Blood Count 4.63 X10*6/uL (4.20-5.50); White Blood Count 10.7 X10*3/uL (4.8-10.8)
[2024-09-15 11:01] LABS: Hemoglobin A1C 120.0272 umol/L; Total Hemoglobin (HGBA1C) 3419.3332 umol/L
[2024-09-15 11:29] LABS: Alanine Aminotransferase 32 U/L (0-31); Albumin Level 4.1 g/dL (3.5-5.0); Alkaline Phosphatase 91 U/L (39-117); Anion Gap 11 (12-20); Aspartate Amino Transferase 19 U/L (5-31); Blood Urea Nitrogen 12 mg/dL (9-16); Calcium 8.8 mg/dL (8.4-10.2); Carbon Dioxide 24 mmol/L (22-29); Chloride 112 mmol/L (96-108); Estimated Glomerular Filt Rate > 60; Potassium 3.9 mmol/L (3.3-5.1); Sodium 143 mmol/L (135-145); Total Protein 6.9 g/dL (6.5-8.0)
== END 2024-09-15 09:12 | disposition home or self-care (01) ==
LOC: HO.HMGCLDS 09:11
PROVIDERS: PCP Internal Medicine; Visit Provider Internal Medicine
DX: I10 Essential (primary) hypertension (principal); E78.5 Hyperlipidemia, unspecified; R73.9 Hyperglycemia, unspecified
CPT/HCPCS: 36415; 80053; 82306; 83036; 84443; 85025

== ENCOUNTER 2024-10-02 10:23 | Outpatient (AMB) | payer OTHER, SELFPAY ==
--- NOTE | 2024-10-02 10:28 | A.OFFPC_ITS ---
Vital Signs 10/02/24 10:29 Height 5 ft 6 in Weight 208 lb BMI 33.6 BP 112/68 Blood Pressure Location Rt brachial Position Sitting Respiration 18 Pulse 78 Pulse Source Pulse Oximeter Temp 98.2 F Temp Source Oral Pulse Oximetry (%) 98 Oxygen Delivery Method Room Air Intake Visit Reasons: 6 months f/up Allergies No Known Allergies (No Known Allergies*) Allergy (Verified 10/02/24 10:33) Medication List - Last Reconciled 10/02/24 by Zaida iKrby MD albuterol sulfate 90 mcg/actuation (Ventolin HFA) inhalation cholecalciferol (vitamin D3) 25 mcg PO DAILY esomeprazole magnesium 20 mg PO DAILY 90 days estradiol 0.01%(0.1mg/gram) pea-sized to urethra daily; 30 days ipratropium bromide intranasal lorazepam 1 mg PO TID PRN methimazole 2.5 mg (1/2 x 5 mg) PO DAILY olmesartan 20 mg PO DAILY zacwnovgxfnsvaf-mjyvsvv-OY 30-10-200 mg/5 mL 10 mL PO Q6H 7 days pyridoxine (vitamin B6) 50 mg PO DAILY 90 days rosuvastatin 5 mg PO DAILY simethicone (Gas Relief (simethicone)) 125 mg PO TID-QID PRN zolpidem (Ambien) 5 mg PO BEDTIME Tobacco use date assessed: 10/02/24 Fall risk assessment: No Falls in past year Last assessed Fall Risk: 10/02/24 Dental Screening Dental Screen Date: 03/10/24 HPI 6 months f/up HPI Details Patient presents for the follow-up of hypertension hyperlipidemia chronic GERD and hyperthyroidism managed by endocrinology. [facility] Medical History IBS (irritable bowel syndrome) Overactive bladder Hyperthyroidism Multinodular thyroid Annual physical exam Normal Pap smear Anxiety Hyperglycemia HTN (hypertension) Osteopenia Nephrolithiasis Atypical hyperplasia of breast Depression Migraine headache Chronic GERD Hyperlipidemia Surgical History H/O colonoscopy History of esophagogastroduodenoscopy (EGD) Status post breast reduction History of hysterectomy Hx of cholecystectomy Family History Father Cancer Mother No problems noted. Social History Household Members Other:: townhouse Housing: Apartment Are you a primary director of career services to a significant other at home: No Do you presently have visiting nurse or other home services: No Patient Tobacco Use Status: Former Tobacco user e-Cigarette/Vaping Use: Never Used Second Hand Smoke Exposure: No service: No Current occupational status: unemployed Current occupational exposures/hazards: No Cognitive needs: No Hearing needs: No Vision needs: Yes Questionnaire Thrive Questionnaire Date Thrive assessed: 03/10/24 DEBORAH-7 AMB Questionnaire DEBORAH-7 Date DEBORAH - 7 assessed: 03/10/24 Source: Developed by Drs. Po Selby, Carla Ybarra, Maxwell Headley and colleagues, with an educational austin from [employer]. Review of Systems Const All systems reviewed & are unremarkable except as noted in HPI and below ENT Reports no additional complaints Card Reports no additional complaints Resp Reports no additional complaints GI Reports no additional complaints Reports no additional complaints Physical exam (Primary Care) Vital Signs: Last Vital Signs Temp 98.2 F 10/02/24 10:29 Pulse 78 10/02/24 10:29 Resp 18 10/02/24 10:29 BP 112/68 10/02/24 10:29 Pulse Ox 98 10/02/24 10:29 Oxygen Delivery Method Room Air 10/02/24 10:29 BMI result Body Mass Index 33.6 Tobacco/Smoking Status: Tobacco use Status Tobacco use date assessed 10/02/24 10/02/24 10:41 Patient Tobacco Use Status Former Tobacco user 10/02/24 10:29 e-Cigarette/Vaping Use Never Used 10/02/24 10:29 Thrive Assessment: Date of Thrive Assessment Date Thrive assessed 03/10/24 10/02/24 10:29 Const General: no acute distress HENMT Head: Yes normal to inspection Eyes General: appearance normal, both eyes and all related structures Neck Neck: Yes no lymphadenopathy and Yes supple Resp Effort & Inspection: normal respiratory effort Auscultation: clear to auscultation bilaterally Cardio Rhythm: regular rhythm Heart sounds: S1 normal heart sound present and S2 normal heart sound present GI Inspection: Yes normal to inspection Palpation (GI): Soft to palpation Percussion: Yes normal to percussion Auscultation: normal bowel sounds Coding Level of Care Code Est Pt Level 4 (07294) Complex EM visit Add On G2211 Diagnoses Hyperglycemia R73.9 Hyperthyroidism E05.90 HTN (hypertension) I10 Hyperlipidemia E78.5 Assessment & Plan Assessment & Plan (1) Hyperglycemia: Code(s): R73.9 - Hyperglycemia, unspecified Category: Medical Plan: A1c is 5.4, continue ADA diet increase physical activity weight loss discussed with the patient (2) Hyperthyroidism: Comment: On methimazole, Follow-up with [facility] Endocrinology Code(s): E05.90 - Thyrotoxicosis, unspecified without thyrotoxic crisis or storm Category: Medical Plan: Follow-up with endocrinology (3) HTN (hypertension): Comment: BP goal less than 130/80 Code(s): I10 - Essential (primary) hypertension Category: Medical Plan: Continue current medications (4) Hyperlipidemia: Code(s): E78.5 - Hyperlipidemia, unspecified Category: Medical Plan: Continue statin follow-up in 6 months with a fasting labs before Orders: Orders Comprehensive [place]. Panel Fast 6 Months E04.2 - Nontoxic multinodular goiter, E05.90 - Thyrotoxicosis, unspecified without thyrotoxic crisis or storm, I10 - Essential (primary) hypertension, R73.9 - Hyperglycemia, unspecified Complete Blood Count Auto Diff 6 Months E04.2 - Nontoxic multinodular goiter, E05.90 - Thyrotoxicosis, unspecified without thyrotoxic crisis or storm, I10 - Essential (primary) hypertension, R73.9 - Hyperglycemia, unspecified Lipid Panel 6 Months E04.2 - Nontoxic multinodular goiter, E05.90 - Thyrotoxicosis, unspecified without thyrotoxic crisis or storm, I10 - Essential (primary) hypertension, R73.9 - Hyperglycemia, unspecified Microalbumin, Random (w Creat) 6 Months E04.2 - Nontoxic multinodular goiter, E05.90 - Thyrotoxicosis, unspecified without thyrotoxic crisis or storm, I10 - Essential (primary) hypertension, R73.9 - Hyperglycemia, unspecified TSH reflex Free T4 6 Months E04.2 - Nontoxic multinodular goiter, E05.90 - Thyrotoxicosis, unspecified without thyrotoxic crisis or storm, I10 - Essential (primary) hypertension, R73.9 - Hyperglycemia, unspecified Hemoglobin A1c 6 Months E04.2 - Nontoxic multinodular goiter, E05.90 - Thyrotoxicosis, unspecified without thyrotoxic crisis or storm, I10 - Essential (primary) hypertension, R73.9 - Hyperglycemia, unspecified Medications: New methimazole 2.5 mg (1/2 x 5 mg) PO DAILY 90 tabs 0RF
[2024-10-02 10:29] VITALS: BP 112/68; PULSE 78; RESP 18; TEMP 36.8; O2SAT 98; BMI 33.6
--- OUTSIDE RECORDS SUMMARY | 2024-10-02 11:06 | XMS_ITS | Clinical Summary ---
Author Organization [facility] Address [address] [place] [address] Phone Care Team Providers Care Data Center Architect Name Role Phone Zaida Kirby MD Primary Care Provider [phone] Allergies No known active allergies Medications Vitamin D3 25 mcg (1,000 unit) capsule take 1 capsule (25 mcg) orally daily 09/01/2024 Active clindamycin (CLEOCIN T) 1 % gel APPLY TO RASH IN GROIN TWICE DAILY NEEDED. Active Banophen 25 mg capsule TAKE 1-2 CAPSULES BY MOUTH AT BEDTIME, NEEDED 06/09/2024 Active estradioL (ESTRACE) 0.01 % (0.1 mg/gram) vaginal cream FOR 30 DAYS PEA-SIZED TO URETHRA DAILY 05/23/2023 Active ipratropium (ATROVENT) 21 mcg (0.03 %) nasal spray SPRAY 2 SPRAYS INTO INTO EACH NOSTRIL 3 TIMES A DAY 05/23/2023 Active LORazepam (ATIVAN) 1 mg tablet Take 1 tablet (1 mg total) by mouth 1 (one) time each day if needed. Max Daily Amount: 1 mg 05/23/2023 Active methIMAzole (TAPAZOLE) 5 mg tablet Active pyridoxine (B-6) 50 mg tablet Take 1 tablet (50 mg total) by mouth 1 (one) time each day. Active rosuvastatin (CRESTOR) 5 mg tablet Take 1 tablet (5 mg total) by mouth 1 (one) time each day. 12/05/2017 Active olmesartan (BENICAR) 20 mg tablet Take 1 tablet (20 mg total) by mouth 1 (one) time each day. Active Active Problems Problem Noted Date Diagnosed Date Epidermal inclusion cyst 09/22/2024 Encounters Date Type Department Care Team Description 2024 10:00 AM EDT Procedure visit Plastic & Reconstructive Surgery [facility] [address] [phone] Hema Shafer DO Epidermal inclusion cyst (Primary Dx) 09/22/2024 9:00 AM EDT Consult Plastic & Reconstructive Surgery [facility] [address] [phone] Daniel Hernández PA Epidermal inclusion cyst (Primary Dx) from Last 3 Months Surgical History Surgery Date Site/Laterality Comments CHOLECYSTECTOMY 2013 PROCEDURE: [place] CHOLECYSTECTOMY Medical History Medical History Date Comments [...] Sexual Orientation Not on file Obstetrics History Last Filed Vital Signs Vital Sign Reading Time Taken Comments Blood Pressure 111/71 09/22/2024 8:54 AM EDT Pulse 64 09/22/2024 8:54 AM EDT Temperature - - Respiratory Rate - - Oxygen Saturation - - Inhaled Oxygen Concentration - - Weight 93.6 kg (206 lb 6.4 oz) 09/22/2024 8:54 A M EDT Height 163.2 cm (5' 4.25 ) 09/22/2024 8:54 AM ED T Body Mass Index 35.15 09/22/2024 8:54 AM EDT Plan of Treatment Upcoming Encounters Date Type Department Care Team (Late st Contact Info) Description 10/13/2024 11:00 AM EDT Office Visit Plastic & Reconstructive Surgery [facility] [address] [phone] Daniel Hernández PA 300 [facility] [address] [place] [address] Health Maintenance Due Date Last Done Comments Breast Cancer Screening 1960 DTaP,Tdap,and Td Vaccines (1 - Tdap) 10/01/1979 Cervical Cancer Screening: P ap Smear 1981 Pneumococcal Vaccine: 50+ Ye ars (1 of 1 - PCV) 2010 Zoster Vaccines (1 of 2) 2010 Colorectal Cancer Screening: Colonoscopy 02/05/2022 HIV Screening 02/05/2022 Hepatitis C Screening 02/05/2022 Social Influencers of Health Screening 02/05/2022 COVID-19 Vaccine (1 - 2023-2 5 season) 2023 Depression Screening 03/05/2024 Influenza Vaccine (#1) 2024 Cholesterol Screening (Lipid [...] Procedure Name Priority Date/Time Associated Diagnosis Comments TISSUE EXAM Routine 2024 10:44 AM EDT Epidermal inclusion cyst LIPID PANEL WITH REFLEX TO DIRECT LDL Routine 03/06/2024 11:22 AM EST 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 Hyperlipemia Hyperglycemia from Last 3 Months or Most Recently Relevant to Health Maintenance Results * Tissue exam (2024 10:44 AM EDT) Final Diagnosis Skin, left axilla, excision: Epidermal inclusion cyst 10/01/2024 11:11 AM EDT [facility] Clinical Information Epidermal inclusion cyst (L72.0) 10/01/2024 11:11 AM EDT [facility] Gross Description A. Axilla, Left, excision lesion ink at 12: Labeled axilla left . Received in formalin is a 3.5 x 1.5 cm harrell skin ellipse excised to a depth of 1.9 cm. There is ink present at one tip per the requisition 12 . The subcutaneous tissues are bulging. The 12-3-6 o'clock aspect is inked blue, the 6-9-12 o'clock aspect is inked black and the epidermis at 12 is inked green. The specimen is serially sectioned sequentially from 12-6 o'clock. The cut surfaces show a 2.0 cm in greatest diameter smooth-walled, unilocular cyst which contains white, friable material, some of which is attached to the cyst lining. A shipping services sales representative cross-section is submitted in one cassette, one piece. TS 10/01/2024 11:11 AM EDT [facility] Disclaimer Unless otherwise specified, all tissue is 10% NB formalin fixed and paraffin embedded. 10/01/2024 11:11 AM EDT [facility] Tissue Structure of left axillary region / Unknown Non-blood Collection / Unknown 2024 10:44 AM EDT 2024 10:44 AM EDT us Hema Shafer DO LAB PATHOLOGY ORDERABLES Fin al Result [facility] [address] [place] [address], * Lipid panel with reflex to direct LDL (03/06/2024 11:22 AM EST) Cholesterol 145 0 - 200 mg/dL LAB CHEMISTRY METHOD 03/06/2024 2:07 PM EST [facility] Triglycerides 82 0 - 150 mg/dL LAB CHEMISTRY METHOD 03/06/2024 2:07 PM [facility] HDL 57 >=40 mg/dL LAB CHEMISTRY METHOD 03/06/2024 2:07 PM [facility] LDL Calculated 72 0 - 100 mg/dL LAB CHEMISTRY METHOD 03/06/2024 2:07 PM [facility] VLDL Cholesterol Jay 16.4 mg/dL LAB CHEMISTRY METHOD 03/06/2024 2:07 PM [facility] Non HDL Chol. (LDL+VLDL) 88 <145 mg/dL LAB CHEMISTRY METHOD 03/06/2024 2:07 PM [facility] Chol/HDL Ratio 2.5 0.0 - 4.4 LAB CHEMISTRY METHOD 03/06/2024 2:07 PM [facility] Blood Venous blood specimen / Unknown Venipuncture / Unknown 03/06/2024 11:22 AM EST 03/06/2024 1:43 PM EST Zaida Kirby MD LAB BLOOD ORDERABLES Final Re sult [facility] [address] [place] [address], from Last 3 Months or Most Recently Relevant to Health Maintenance Insurance [facility] [employer] Care Teams Data Center Architect Relationship Specialty Start Date End Date Zaida Kirby MD [address] [place] [phone] PCP - General Internal Medicine 09/19/24
--- OUTSIDE RECORDS SUMMARY | 2024-10-02 11:06 | XMS_ITS | Clinical Summary ---
Author Organization [employer] Address [address] [facility] [address] [place] [address] Care Team Providers Care Shop Service Technician Name Role Phone Unavailable Primary Care [...]
--- OUTSIDE RECORDS SUMMARY | 2024-10-02 11:06 | XMS_ITS | Clinical Summary ---
Author Organization [facility] Address [address] [place] [address] Care Team Providers Care Ups Driver Name Role Phone Unavailable Primary Care Provider [...] Plan of Treatment Not on file [place] [facility] DENTAL [facility] [place] [id number]
== END 2024-10-02 11:41 | disposition home or self-care (01) ==
LOC: HO.HMCC 10:24
PROVIDERS: PCP Internal Medicine; Visit Provider Internal Medicine
DX: R73.9 Hyperglycemia, unspecified (principal); E05.90 Thyrotoxicosis, unspecified without thyrotoxic crisis or storm; I10 Essential (primary) hypertension; E78.5 Hyperlipidemia, unspecified

== ENCOUNTER → 2024-10-02 10:23 | Outpatient (BNVA) | payer OTHER, SELFPAY | PROVIDERS: PCP Internal Medicine; Visit Provider Internal Medicine | DX: I10 Essential (primary) hypertension (principal); R73.9 Hyperglycemia, unspecified; E05.90 Thyrotoxicosis, unspecified without thyrotoxic crisis or storm; E78.5 Hyperlipidemia, unspecified; E04.2 Nontoxic multinodular goiter | CPT/HCPCS: 99212 ==

== ENCOUNTER 2025-02-23 09:24 | Outpatient (REF) | payer OTHER, SELFPAY ==
--- NOTE | ~2025-02-23 | US_ITS ---
CLINICAL HISTORY: N20.0 - Calculus of kidney Renal ultrasound Comparison: US/SR - US KIDNEY BILATERAL - 02/07/24 11:30 EST US/SR - US ABDOMEN - 08/24/22 08:46 EDT US/SR - US KIDNEY BILATERAL - 08/08/22 14:56 EDT Findings: The kidneys are normal in echotexture bilaterally. No hydronephrosis or nephrolithiasis. The right kidney is normal in size, measuring 11.3cm in length. The left kidney is normal in size, measuring 11.7cm in length. Impression: Normal study. This document has been electronically signed by: Letha Rivera MD on 02/24/2025 14:56:14
--- OUTSIDE RECORDS SUMMARY | 2025-02-23 10:37 | XMS_ITS | Encounter Summary ---
Author Organization [facility] [employer] [facility] Address [address] [facility] [address] [place] [address] Care Team Providers Care Ve Teacher Name Role Phone Unavailable Primary Care Provider Unavailabl e Encounter Details Date Type Department Care Team (Latest Contact Info) Description 02/17/2019 Abstract [facility] CONVERSIONS Dental, Provider, DDS Social History [...]
--- OUTSIDE RECORDS SUMMARY | 2025-02-23 10:37 | XMS_ITS | Clinical Summary ---
Author Organization [employer] Address [address] [facility] [address] [place] [address] Care Team Providers Care Yellow Pages Space Salesperson Name Role Phone Unavailable Primary Care Provider [...] of 2) 2010 COVID-19 Vaccine ( - 2024-2 6 season) 2024 Influenza Vaccine (#1) 2024 RSV Patients and [...]
--- OUTSIDE RECORDS SUMMARY | 2025-02-23 10:37 | XMS_ITS | Clinical Summary ---
Author Organization [facility] Address [address] [place] [address] Phone Care Team Providers Care Sanitary [place]kin Machine Tender Name Role Phone Zaida Kirby MD Primary Care Provider Allergies No known active allergies Medications Vitamin [...] Date Diagnosed Date Epidermal inclusion cyst 09/22/2024 Surgical History Surgery Date Site/Laterality Comments CHOLECYSTECTOMY 2014 PROCEDURE: [place] CHOLECYSTECTOMY Medical History Medical History Date Comments [...] on file Sexual Orientation Not on file Last Filed Vital Signs Vital Sign Reading [...] 09/22/2024 8:54 AM EDT Plan of Treatment Health Maintenance Due Date Last Done Comments Breast Cancer Screening 1960 Colorectal Cancer Screening: Colonoscopy 1960 Drug Screen 1960 Non-Opioid Controlled Substa nce Agreement 1960 DTaP,Tdap,and Td Vaccines (1 - Tdap) 10/01/1979 Cervical Cancer Screening: P ap Smear 1981 Pneumococcal Vaccine: 50+ Ye ars (1 of 1 - PCV) 2010 Zoster Vaccines (1 of 2) 2010 HIV Screening 02/05/2022 Hepatitis C Screening 02/05/2022 Social Influencers of Health Screening 02/05/2022 Depression Screening 03/05/2024 COVID-19 Vaccine (1 - 2024-2 6 season) 2024 Influenza Vaccine (#1) 2024 Cholesterol Screening (Lipid [...] mg/dL LAB CHEMISTRY METHOD 03/06/2024 2:07 PM [facility] Triglycerides 82 0 - 150 mg/dL LAB CHEMISTRY METHOD 03/06/2024 2:07 PM [facility] HDL 57 >=40 mg/dL LAB CHEMISTRY METHOD 03/06/2024 2:07 PM [facility] LDL Calculated 72 0 - 100 mg/dL LAB CHEMISTRY METHOD 03/06/2024 2:07 PM [facility] VLDL Cholesterol Jay 16.4 mg/dL LAB CHEMISTRY METHOD 03/06/2024 2:07 PM [facility] Non HDL Chol. (LDL+VLDL) 88 <145 mg/dL LAB CHEMISTRY METHOD 03/06/2024 2:07 PM [facility] Chol/HDL Ratio 2.5 0.0 - 4.4 LAB CHEMISTRY METHOD 03/06/2024 2:07 PM EST [facility] Blood Venous blood specimen / Unknown Venipuncture / Unknown 03/06/2024 11:22 AM EST 03/06/2024 1:43 PM EST us Zaida Kirby MD LAB BLOOD ORDERABLES Final Re sult [facility] [address] [place] [address], from Last 3 Months or Most Recently Relevant to Health Maintenance Insurance [facility] [employer] Care Teams Sanitary [place]kin Machine Tender Relationship Specialty Start Date End Date Zaida Kirby MD [address] [place] [address] PCP - General Internal Medicine 09/19/24
--- OUTSIDE RECORDS SUMMARY | 2025-02-23 10:37 | XMS_ITS | Encounter Summary ---
Author Organization [facility] [employer] [facility] Address [address] [facility] 7[address] [place] [address] Care Team Providers Care Continuous Improvement Specialist Name Role Phone Unavailable Primary Care Provider Unavailabl e Encounter Details Date Type Department Care Team (Latest Contact Info) Description 08/12/2018 Abstract [facility] CONVERSIONS Dental, Provider, DDS Social [...]
== END 2025-02-23 09:25 | disposition home or self-care (01) ==
LOC: HO.HMGCX 09:24
PROVIDERS: PCP Internal Medicine; Visit Provider Urology
DX: N20.0 Calculus of kidney (principal)
CPT/HCPCS: 76775

== ENCOUNTER → 2025-02-23 09:32 | Outpatient (BNV) | payer OTHER, SELFPAY | PROVIDERS: PCP Internal Medicine; Visit Provider Radiology Diagnostic Radiology | DX: N20.0 Calculus of kidney (principal) | CPT/HCPCS: 76775 ==